=== PATIENT | male | born 1950 | race Caucasian/White ===

== ENCOUNTER 2017-07-10 03:44 | Emergency (ER) | payer MEDICARE, MEDICAID ==
[~2017-07-10 03:44] MED LIST: /GLIP10TAB OR; ABIL2TAB OR; ASPI650T2 OR; ASPI81TA83 OR; GLUC1000 OR; HALDOL; LISI2.5T OR; MAGN500T2 OR; PROZ10CA OR; PROZ20CA OR; TYLE500T53 OR; ZOCO40TA OR
[2017-07-10] MEDS: NS 1,000 ML IV SCH ×2 (03:57→10:41)
[2017-07-10] MEDS ORDERED: MORPHINE 4 MG/ML 1ML SYRINGE IV ONE ×2 (04:00→07:00)
[2017-07-10] MEDS ORDERED: ONDANSETRON 4MG/2ML VIAL (J2405) IV ONE (04:00)
[2017-07-10 04:13] LABS: BASO # 0.1 10^3/uL (0.0-0.2); BASO % 0.7 % (0.0-1.0); EOS # 0.4 10^3/uL (0.0-0.50); EOS % 5.7 % (0.0-3.0); IMMATURE GRANULOCYTE % 0.3 % (0-0); LYMPH # 1.2 10^3/uL (1.5-4.5); MEAN CORPUSCULAR HEMOGLOBIN 32.6 pg (27.0-33.0); MEAN CORPUSCULAR HGB CONC 34.5 g/dl (32.0-36.5); MEAN CORPUSCULAR VOLUME 94.7 fl (80.0-96.0); MONO # 0.5 10^3/uL (0.0-0.8); MONO % 6.7 % (0.0-5.0); NEUTROPHILS # 5.5 10^3/uL (1.8-7.7); NEUTROPHILS % 71.6 % (36.0-66.0); PLATELET COUNT, AUTOMATED 216 10^3/uL (150-450); RED CELL DISTRIBUTION WIDTH 11.9 % (11.5-14.5); WHITE BLOOD COUNT 7.7 10^3/uL (4.0-10.0)
[2017-07-10 04:31] LABS: ALBUMIN/GLOBULIN RATIO 1.43 (1.00-1.93); ALKALINE PHOSPHATASE 75 U/L (45-117); ALT/SGPT 19 U/L (12-78); ANION GAP 9 MEQ/L (8-16); AST/SGOT 14 U/L (7-37); BILIRUBIN,DIRECT 0.1 MG/DL (0.0-0.2); BILIRUBIN,TOTAL 0.7 MG/DL (0.2-1.0); BLOOD UREA NITROGEN 20 MG/DL (7-18); CALCIUM LEVEL 9.2 MG/DL (8.8-10.2); CARBON DIOXIDE LEVEL 26 MEQ/L (21-32); CHLORIDE LEVEL 103 MEQ/L (98-107); CREATININE FOR GFR 0.86 MG/DL (0.70-1.30); GLOMERULAR FILTRATION RATE > 60.0 (>49); GLUCOSE, FASTING 216 MG/DL (80-110); POTASSIUM SERUM 4.3 MEQ/L (3.5-5.1); SODIUM LEVEL 138 MEQ/L (136-145); TOTAL PROTEIN 6.8 GM/DL (6.4-8.2)
[2017-07-10] MEDS ORDERED: GASTROGRAFIN SOLUTION 30ML (Q9963) As Ordered ONE (05:10)
[2017-07-10] MEDS ORDERED: GASTROGRAFIN SOLUTION 30ML PO ONE (05:15)
[2017-07-10] MEDS ORDERED: GASTROGRAFIN SOLUTION 30ML (Q9963) PO ONE (05:45)
[2017-07-10] MEDS ORDERED: ISOVUE-370 76% 100ML VIAL (Q9967) As Ordered ONE (05:55)
--- NOTE | 2017-07-10 07:40 | REPUSA ---
CLINICAL HISTORY: Abdominal pain. TECHNIQUE: Multiple axial, sagittal and coronal CT images were obtained through the abdomen and pelvi s after administration of oral and intravenous contrast material. COMMENTS: Moderate amount of fecal residue and large bowels. 5.2 mm obstructing stone of the distal third of the left ureter. Moderate left hydroureteronephrosis. Bilateral nonobstructing renal stones ranging in size between 4 and 16 mm. The liver is mildly enlarged without mass or defect. There is no intra or extrahepatic biliary ductal dilatation. The spleen is normal. The gallbladder is within normal limits. The pancreas is of normal contour and attenuation characteristics. There is no evidence of adrenal mass. No evidence for appendicitis. There is no bowel wall thickening. No evidence for small or large bowel obstruction. There is no evid ence of abdominal ascites or lymphadenopathy. There is no evidence of intrinsic or extrinsic bladder mass. There is no pelvic ascites or lymphadeno zach. Images of the lung bases show no evidence of pleural or parenchymal mass. There are no pleural effusi ons. The bony structures are free of lytic or blastic lesions. Multilevel degenerative changes are seen in volving the thoracolumbar spine. Scattered calcifications are seen involving the aorta and major bran ches compatible with atherosclerosis. Moderate prostatomegaly. Distended bladder. Diffuse thickening of the wall of the bladder. IMPRESSION: Obstructing stone of the left ureter. Bilateral nephrolithiasis. Moderate amount of fecal residue in the large bowels. Prostatomegaly. Thickening of the bladder. Thank you for your kind referral of this patient.
[2017-07-10] MEDS ORDERED: KETOROLAC 30 MG/ML VIAL (J1885) IV ONE (08:15)
--- NOTE | 2017-07-10 08:32 | ED PDOC ---
Post-Departure Follow-Up radiology report faxed to Shirley Marcelo MD Jul 10, 2017 08:32
[2017-07-10 10:21] VITALS: BP 137/67
[2017-07-10] MEDS ORDERED: NORCOTAB PO (10:35)
== END 2017-07-10 10:55 | disposition home or self-care (01) ==
LOC: M ED 03:44
DX: R10.9 Unspecified abdominal pain (principal); N20.1 Calculus of ureter; E11.9 Type 2 diabetes mellitus without complications; F32.9 Major depressive disorder, single episode, unspecified; F17.200 Nicotine dependence, unspecified, uncomplicated; Z88.0 Allergy status to penicillin; Z79.82 Long term (current) use of aspirin; Z79.899 Other long term (current) drug therapy
CPT/HCPCS: 74177; 80048; 80076; 81001; 83690; 85025; 87086; 93041; 94760; 96374; 96375; 96376; 99285; J1885; J2405; Q9963; Q9967

== ENCOUNTER 2017-07-12 04:41 | Emergency (ER) | payer MEDICARE, MEDICAID ==
[~2017-07-12 04:41] MED LIST changes: +NORCOTAB PO
[2017-07-12] MEDS ORDERED: ATOR80TA59 PO (05:02)
[2017-07-12] MEDS ORDERED: ZOLO100T PO (05:02)
[2017-07-12] MEDS ORDERED: ALPR0.25 PO (05:02)
[2017-07-12] MEDS ORDERED: INSULADS INJ (05:02)
[2017-07-12] MEDS ORDERED: DITR5TAB PO (05:02)
[2017-07-12] MEDS ORDERED: FLOM5CAP PO (05:02)
[2017-07-12] MEDS ORDERED: VICT18IN SC (05:02)
[2017-07-12] MEDS ORDERED: KETOROLAC 30 MG/ML VIAL (J1885) IV ONE (05:45)
[2017-07-12] MEDS ORDERED: NS 1,000 ML IV ONE (05:45)
[2017-07-12 06:00] LABS: BASO # 0.1 10^3/uL (0.0-0.2); BASO % 0.6 % (0.0-1.0); EOS # 0.5 10^3/uL (0.0-0.50); IMMATURE GRANULOCYTE % 0.4 % (0-0); LYMPH # 0.9 10^3/uL (1.5-4.5); LYMPH % 10.8 % (24.0-44.0); MEAN CORPUSCULAR HEMOGLOBIN 32.5 pg (27.0-33.0); MEAN CORPUSCULAR HGB CONC 34.3 g/dl (32.0-36.5); MEAN CORPUSCULAR VOLUME 94.7 fl (80.0-96.0); MONO # 0.7 10^3/uL (0.0-0.8); MONO % 8.4 % (0.0-5.0); NEUTROPHILS # 6.2 10^3/uL (1.8-7.7); NEUTROPHILS % 73.8 % (36.0-66.0); PLATELET COUNT, AUTOMATED 192 10^3/uL (150-450); WHITE BLOOD COUNT 8.4 10^3/uL (4.0-10.0)
[2017-07-12 06:18] LABS: PLT CLUMPS? POS FLAG; POS COUNT POS FLAG
[2017-07-12 06:44] LABS: ALBUMIN 3.7 GM/DL (3.2-5.2); ALBUMIN/GLOBULIN RATIO 1.32 (1.00-1.93); ALKALINE PHOSPHATASE 61 U/L (45-117); ALT/SGPT 17 U/L (12-78); AMYLASE 118 U/L (25-115); ANION GAP 9 MEQ/L (8-16); AST/SGOT 17 U/L (7-37); BILIRUBIN,DIRECT 0.1 MG/DL (0.0-0.2); BILIRUBIN,TOTAL 0.6 MG/DL (0.2-1.0); BLOOD UREA NITROGEN 18 MG/DL (7-18); CALCIUM LEVEL 8.7 MG/DL (8.8-10.2); CARBON DIOXIDE LEVEL 24 MEQ/L (21-32); CHLORIDE LEVEL 107 MEQ/L (98-107); GLOMERULAR FILTRATION RATE > 60.0 (>49); GLUCOSE, FASTING 115 MG/DL (80-110); POTASSIUM SERUM 4.3 MEQ/L (3.5-5.1); SODIUM LEVEL 140 MEQ/L (136-145); TOTAL PROTEIN 6.5 GM/DL (6.4-8.2)
--- NOTE | 2017-07-12 08:00 | REPUSA ---
CLINICAL HISTORY: Left flank pain. TECHNIQUE: Multiple axial and coronal CT images were obtained through the abdomen and pelvis without administration of oral or IV contrast material. COMMENTS: Comparison is made to the prior exam performed on 07/10/2017. Unchanged moderate amount of fecal residue in the large bowels. Resolution of the previously described obstructing stone in the distal third of the left ureter. Moderate left hydroureteronephrosis. This is unchanged. Unchanged bilateral nephrolithiasis. The liver is of uniform attenuation without mass or defect. There is no intra or extrahepatic biliary ductal dilatation. The spleen is normal. The gallbladder is within normal limits. The pancreas is of normal contour and attenuation characteristics. There is no evidence of adrenal mass. There is no evidence for appendicitis. There is no bowel wall thickening. No evidence for small or la rge bowel obstruction. There is no evidence of abdominal ascites or lymphadenopathy. There is no evidence of intrinsic or extrinsic bladder mass. There is no pelvic ascites or lymphadeno zahc. Distended bladder is unchanged. Unchanged prostatomegaly. Images of the lung bases show no evidence of pleural or parenchymal mass. There are no pleural effusi ons. The bony structures are free of lytic or blastic lesions. IMPRESSION: Passage of the recently described obstructing stone in the distal left ureter. Unchanged left hydroureteronephrosis. Unchanged left perinephric fat stranding. Additional chronic, unchanged findings as above. Thank you for your kind referral of this patient.
[2017-07-12 09:00] VITALS: BP 173/79
== END 2017-07-12 09:02 | disposition home or self-care (01) ==
LOC: M ED 04:41
DX: N20.1 Calculus of ureter (principal); N40.0 Benign prostatic hyperplasia without lower urinary tract symptoms; E11.9 Type 2 diabetes mellitus without complications; I10 Essential (primary) hypertension; E78.5 Hyperlipidemia, unspecified; Z87.442 Personal history of urinary calculi; F17.200 Nicotine dependence, unspecified, uncomplicated; Z88.0 Allergy status to penicillin; Z79.899 Other long term (current) drug therapy; Z79.82 Long term (current) use of aspirin; Z79.4 Long term (current) use of insulin
CPT/HCPCS: 74176; 80048; 80076; 81001; 82150; 83690; 85025; 87086; 96374; 99284; J1885

== ENCOUNTER 2018-03-23 20:01 | Emergency (ER) | payer MEDICARE, MEDICAID ==
[2018-03-23] MEDS: NS 1,000 ML IV (21:50)
[2018-03-23] MEDS: MORPHINE 4 MG/ML 1ML VIAL/SYRINGE (J2270) IV (21:51)
[2018-03-23] MEDS: ONDANSETRON 4MG/2ML VIAL (J2405) IV (21:51)
[2018-03-23 22:05] LABS: BASO % 0.2 % (0.0-1.0); EOS # 0.3 10^3/uL (0.0-0.50); EOS % 1.6 % (0.0-3.0); HEMATOCRIT 37.4 % (42.0-52.0); HEMOGLOBIN 13.1 g/dl (13.5-17.5); IMMATURE GRANULOCYTE % 0.8 % (0-3.0); LYMPH # 1.1 10^3/uL (1.5-4.5); LYMPH % 6.6 % (24.0-44.0); MEAN CORPUSCULAR HEMOGLOBIN 33.2 pg (27.0-33.0); MEAN CORPUSCULAR VOLUME 94.7 fl (80.0-96.0); MONO # 1.1 10^3/uL (0.0-0.8); MONO % 6.7 % (0.0-5.0); NEUTROPHILS # 13.5 10^3/uL (1.8-7.7); NEUTROPHILS % 84.1 % (36.0-66.0); PLATELET COUNT, AUTOMATED 282 10^3/uL (150-450); RED BLOOD COUNT 3.95 10^6/uL (4.30-6.10); RED CELL DISTRIBUTION WIDTH 11.8 % (11.5-14.5)
[2018-03-23 22:39] LABS: ALBUMIN/GLOBULIN RATIO 0.79 (1.00-1.93); ALKALINE PHOSPHATASE 93 U/L (45-117); ALT/SGPT 22 U/L (12-78); ANION GAP 9 MEQ/L (8-16); AST/SGOT 17 U/L (7-37); BILIRUBIN,DIRECT 0.1 MG/DL (0.0-0.2); BILIRUBIN,TOTAL 0.6 MG/DL (0.2-1.0); BLOOD UREA NITROGEN 38 MG/DL (7-18); CALCIUM LEVEL 9.1 MG/DL (8.8-10.2); CARBON DIOXIDE LEVEL 28 MEQ/L (21-32); CHLORIDE LEVEL 98 MEQ/L (98-107); CPK CREATINE PHOSPHOKINASE 131 U/L (39-308); CREATININE FOR GFR 1.45 MG/DL (0.70-1.30); ETHYL ALCOHOL (ETHANOL) < 0.003 % (0.000-0.010); GLOMERULAR FILTRATION RATE 51.8 (>49); GLUCOSE, FASTING 160 MG/DL (70-100); LIPASE 77 U/L (73-393); POTASSIUM SERUM 4.6 MEQ/L (3.5-5.1); SALICYLATE LEVEL < 1.7 MG/DL (5.0-30.0); SODIUM LEVEL 135 MEQ/L (136-145); TOTAL PROTEIN 6.8 GM/DL (6.4-8.2); TROPONIN I < 0.02 NG/ML (< 0.10)
[2018-03-23 22:40] LABS: ACETAMINOPHEN LEVEL < 2.0 UG/ML (10.0-30.0); CK-MB VALUE MASS 1.7 NG/ML (<3.6); MB/CK RELATIVE INDEX 1.29 (< OR =4)
[2018-03-23 22:44] LABS: THYROID STIMULATING HORMONE 0.699 uIU/ML (0.358-3.740)
[2018-03-23 23:25] LABS: KETONE, URINE AUTO RFX NEGATIVE (NEGATIVE); LEUKOCYTE ESTERASE UR AUTO RFX NEGATIVE (NEGATIVE); NITRITE, URINE AUTO RFX NEGATIVE (NEGATIVE); RBC, URINE AUTO RFX 146 /HPF (0-3); SPECIFIC GRAVITY UR AUTO RFX 1.018 (1.002-1.035); SQUAM EPITHELIAL CELL UR AURFX 0 /HPF (0-6); WBC, URINE AUTO RFX 4 /HPF (0-3)
[2018-03-23 23:59] LABS: AMPHETAMINES LEVEL URINE NEGATIVE (NEGATIVE); BARBITURATES URINE NEGATIVE (NEGATIVE); BENZODIAZEPINES URINE POSITIVE (NEGATIVE); CANNABINOIDS URINE NEGATIVE (NEGATIVE); COCAINE METABOLITE URINE NEGATIVE (NEGATIVE); METHADONE URINE NEGATIVE (NEGATIVE); OPIATES URINE POSITIVE (NEGATIVE); PHENCYCLIDINE URINE NEGATIVE (NEGATIVE)
== END 2018-03-24 01:08 | disposition home or self-care (01) ==
LOC: M ED 03-24 01:08
DX: S20.229A Contusion of unspecified back wall of thorax, initial encounter (principal); W18.2XXA Fall in (into) shower or empty bathtub, initial encounter; Y92.002 Bathroom of unspecified non-institutional (private) residence as the place of occurrence of the external cause; R42 Dizziness and giddiness; R53.1 Weakness; I11.9 Hypertensive heart disease without heart failure; E11.9 Type 2 diabetes mellitus without complications; Z87.891 Personal history of nicotine dependence; Z88.0 Allergy status to penicillin; Z79.899 Other long term (current) drug therapy; Z79.82 Long term (current) use of aspirin; Z79.4 Long term (current) use of insulin
CPT/HCPCS: J2270

== ENCOUNTER 2018-03-28 11:42 | Inpatient (IN) | payer OTHER, MEDICARE, MEDICAID ==
[2018-03-28 12:17] LABS: BEDSIDE GLUCOSE 277 MG/DL (80-115)
[2018-03-28 13:07] LABS: BASO # 0.1 10^3/uL (0.0-0.2); BASO % 0.3 % (0.0-1.0); EOS # 0.1 10^3/uL (0.0-0.50); EOS % 0.4 % (0.0-3.0); HEMATOCRIT 37.8 % (42.0-52.0); IMMATURE GRANULOCYTE % 1.1 % (0-3.0); LYMPH # 1.2 10^3/uL (1.5-4.5); LYMPH % 4.9 % (24.0-44.0); MEAN CORPUSCULAR HEMOGLOBIN 32.9 pg (27.0-33.0); MEAN CORPUSCULAR HGB CONC 34.4 g/dl (32.0-36.5); MEAN CORPUSCULAR VOLUME 95.7 fl (80.0-96.0); MONO # 1.5 10^3/uL (0.0-0.8); MONO % 5.8 % (0.0-5.0); NEUTROPHILS # 22.2 10^3/uL (1.8-7.7); NEUTROPHILS % 87.5 % (36.0-66.0); PLATELET COUNT, AUTOMATED 405 10^3/uL (150-450); RED BLOOD COUNT 3.95 10^6/uL (4.30-6.10); RED CELL DISTRIBUTION WIDTH 11.8 % (11.5-14.5); WHITE BLOOD COUNT 25.3 10^3/uL (4.0-10.0)
[2018-03-28 13:31] LABS: ALBUMIN 2.7 GM/DL (3.2-5.2); ALKALINE PHOSPHATASE 124 U/L (45-117); ALT/SGPT 28 U/L (12-78); ANION GAP 10 MEQ/L (8-16); AST/SGOT 13 U/L (7-37); BILIRUBIN,TOTAL 0.4 MG/DL (0.2-1.0); BLOOD UREA NITROGEN 24 MG/DL (7-18); CARBON DIOXIDE LEVEL 27 MEQ/L (21-32); CHLORIDE LEVEL 100 MEQ/L (98-107); CREATININE FOR GFR 1.16 MG/DL (0.70-1.30); GLOMERULAR FILTRATION RATE > 60.0 (>49); GLUCOSE, FASTING 254 MG/DL (70-100); POTASSIUM SERUM 4.2 MEQ/L (3.5-5.1); SODIUM LEVEL 137 MEQ/L (136-145); TOTAL PROTEIN 7.2 GM/DL (6.4-8.2)
[2018-03-28 13:51] LABS: LACTIC ACID SEPSIS PROTOCOL 2.8 MMOL/L (0.4-2.0)
[2018-03-28] MEDS: VANCOMYCIN HCL 1,000 MG, VIAL MATE ADAPTER 1 EACH in D5W 250 ML IV ×2 (14:30→20:58)
[2018-03-28] MEDS: ONDANSETRON 4MG/2ML VIAL (J2405) IV (14:56)
[2018-03-28] MEDS: MORPHINE 2 MG/ML 1ML SYRINGE (J2270) IV (15:01)
[2018-03-28] MEDS ORDERED: GLUCAGON FOR INJ 1 MG VIAL (J1610) SC (16:00)
[2018-03-28] MEDS ORDERED: DEXTROSE 50% 50 ML SYRINGE IV (16:00)
[2018-03-28] MEDS ORDERED: GLUCOSE 4 GM CHEW TABLET PO (16:00)
[2018-03-28] MEDS: NS 500 ML IV (16:25)
[2018-03-28 17:27] LABS: BEDSIDE GLUCOSE 200 MG/DL (80-115)
[2018-03-28 17:28] LABS: LACTIC ACID SEPSIS PROTOCOL 1.1 MMOL/L (0.4-2.0)
[2018-03-28] MEDS: HumaLOG INSULIN (NovoLOG) PER UNIT SC (18:33)
[2018-03-28] MEDS: ARIPiprazole 10 MG TAB PO (18:35)
[2018-03-28] MEDS: ASPIRIN 81 MG ENTERIC TAB PO (18:35)
[2018-03-28] MEDS: NS 1,000 ML IV (18:35)
[2018-03-28] MEDS: oxyBUTYnin *DITROPAN XL* 5 MG TABCR PO (18:35)
[2018-03-28] MEDS: TAMSULOSIN 0.4 MG CAP PO (18:36)
[2018-03-28 20:52] LABS: BEDSIDE GLUCOSE 120 MG/DL (80-115)
[2018-03-28] MEDS: HEPARIN SOD (PORCINE) 5000 UNITS/ML VIAL SC (20:58)
[2018-03-28] MEDS: ACETAMINOPHEN TAB 650MG DOSE (2X325MG) PO (23:07)
[2018-03-29 01:37] LABS: BEDSIDE GLUCOSE 258 MG/DL (80-115)
[2018-03-29] MEDS: VANCOMYCIN HCL 1,000 MG, VIAL MATE ADAPTER 1 EACH in D5W 250 ML IV ×3 (03:46→20:28)
[2018-03-29] MEDS: ACETAMINOPHEN TAB 650MG DOSE (2X325MG) PO ×4 (03:47→20:29)
[2018-03-29] MEDS: NS 1,000 ML IV ×2 (04:15→08:39)
[2018-03-29] MEDS: HEPARIN SOD (PORCINE) 5000 UNITS/ML VIAL SC ×3 (06:36→21:42)
[2018-03-29 06:43] LABS: HEMOGLOBIN 12.1 g/dl (13.5-17.5); MEAN CORPUSCULAR HEMOGLOBIN 32.3 pg (27.0-33.0); MEAN CORPUSCULAR HGB CONC 33.6 g/dl (32.0-36.5); PLATELET COUNT, AUTOMATED 317 10^3/uL (150-450); RED BLOOD COUNT 3.75 10^6/uL (4.30-6.10); RED CELL DISTRIBUTION WIDTH 11.9 % (11.5-14.5); WHITE BLOOD COUNT 20.4 10^3/uL (4.0-10.0)
[2018-03-29 07:03] LABS: ANION GAP 6 MEQ/L (8-16); BLOOD UREA NITROGEN 17 MG/DL (7-18); CALCIUM LEVEL 8.2 MG/DL (8.8-10.2); CARBON DIOXIDE LEVEL 28 MEQ/L (21-32); CHLORIDE LEVEL 105 MEQ/L (98-107); CREATININE FOR GFR 0.74 MG/DL (0.70-1.30); GLOMERULAR FILTRATION RATE > 60.0 (>49); GLUCOSE, FASTING 232 MG/DL (70-100); POTASSIUM SERUM 4.1 MEQ/L (3.5-5.1); SODIUM LEVEL 139 MEQ/L (136-145)
[2018-03-29] MEDS: ARIPiprazole 10 MG TAB PO (08:18)
[2018-03-29] MEDS: LISINOPRIL *2.5 MG* TAB PO (08:18)
[2018-03-29] MEDS: oxyBUTYnin *DITROPAN XL* 5 MG TABCR PO (08:18)
[2018-03-29] MEDS: LEVEMIR (INSULIN DETEMIR) 1 UNITS/0.01ML SC (08:19)
[2018-03-29] MEDS: ASPIRIN 81 MG ENTERIC TAB PO (08:19)
[2018-03-29] MEDS: HumaLOG INSULIN (NovoLOG) PER UNIT SC ×3 (08:19→17:06)
[2018-03-29] MEDS: ATORVASTATIN 20 MG TAB PO (08:19)
[2018-03-29] MEDS: SERTRALINE 100 MG TAB PO (08:19)
[2018-03-29] MEDS: TAMSULOSIN 0.4 MG CAP PO (08:19)
[2018-03-29 11:28] LABS: BEDSIDE GLUCOSE 299 MG/DL (80-115)
[2018-03-29] MEDS ORDERED: PROHANCE 279.3MG/ML 15ML VIAL (A9576) As Ordered (14:51)
[2018-03-29] MEDS ORDERED: PROHANCE 279.3MG/ML 5ML VIAL (A9576) As Ordered (14:51)
[2018-03-29 16:36] LABS: BEDSIDE GLUCOSE 69 MG/DL (80-115)
[2018-03-29 19:23] LABS: VANCOMYCIN LEVEL TROUGH 12.9 UG/ML (10.0-20.0)
[2018-03-29] MEDS ORDERED: VANCOMYCIN HCL 1,000 MG, VIAL MATE ADAPTER 1 EACH in D5W 250 ML IV (19:45)
[2018-03-29 19:51] LABS: BEDSIDE GLUCOSE 118 MG/DL (80-115)
[2018-03-29] MEDS: SENOKOT S TAB PO (20:28)
[2018-03-30] MEDS: NS 1,000 ML IV ×2 (01:02→13:59)
[2018-03-30] MEDS: ACETAMINOPHEN TAB 650MG DOSE (2X325MG) PO ×4 (02:19→21:16)
[2018-03-30] MEDS: VANCOMYCIN HCL 1,000 MG, VIAL MATE ADAPTER 1 EACH in D5W 250 ML IV ×4 (02:19→20:23)
[2018-03-30 06:02] LABS: HEMATOCRIT 35.7 % (42.0-52.0); HEMOGLOBIN 11.9 g/dl (13.5-17.5); MEAN CORPUSCULAR HEMOGLOBIN 32.4 pg (27.0-33.0); MEAN CORPUSCULAR HGB CONC 33.3 g/dl (32.0-36.5); MEAN CORPUSCULAR VOLUME 97.3 fl (80.0-96.0); PLATELET COUNT, AUTOMATED 336 10^3/uL (150-450); RED BLOOD COUNT 3.67 10^6/uL (4.30-6.10); RED CELL DISTRIBUTION WIDTH 11.8 % (11.5-14.5); WHITE BLOOD COUNT 20.2 10^3/uL (4.0-10.0)
[2018-03-30 06:16] LABS: ANION GAP 9 MEQ/L (8-16); BLOOD UREA NITROGEN 13 MG/DL (7-18); CALCIUM LEVEL 8.3 MG/DL (8.8-10.2); CARBON DIOXIDE LEVEL 26 MEQ/L (21-32); CHLORIDE LEVEL 108 MEQ/L (98-107); CREATININE FOR GFR 0.61 MG/DL (0.70-1.30); GLOMERULAR FILTRATION RATE > 60.0 (>49); GLUCOSE, FASTING 60 MG/DL (70-100); POTASSIUM SERUM 3.6 MEQ/L (3.5-5.1); SODIUM LEVEL 143 MEQ/L (136-145)
[2018-03-30] MEDS: HEPARIN SOD (PORCINE) 5000 UNITS/ML VIAL SC ×3 (06:47→21:16)
[2018-03-30] MEDS: HumaLOG INSULIN (NovoLOG) PER UNIT SC ×3 (07:30→16:59)
[2018-03-30] MEDS: SERTRALINE 100 MG TAB PO (08:07)
[2018-03-30] MEDS: ASPIRIN 81 MG ENTERIC TAB PO (08:08)
[2018-03-30] MEDS: LISINOPRIL *2.5 MG* TAB PO (08:08)
[2018-03-30] MEDS: TAMSULOSIN 0.4 MG CAP PO (08:08)
[2018-03-30] MEDS: oxyBUTYnin *DITROPAN XL* 5 MG TABCR PO (08:08)
[2018-03-30] MEDS: ARIPiprazole 10 MG TAB PO (08:08)
[2018-03-30] MEDS: ATORVASTATIN 20 MG TAB PO (08:08)
[2018-03-30] MEDS: LEVEMIR (INSULIN DETEMIR) 1 UNITS/0.01ML SC (08:57)
[2018-03-30 11:30] LABS: BEDSIDE GLUCOSE 276 MG/DL (80-115)
[2018-03-30 16:40] LABS: BEDSIDE GLUCOSE 308 MG/DL (80-115)
[2018-03-30 18:18] LABS: KETONE, URINE AUTO RFX NEGATIVE (NEGATIVE); LEUKOCYTE ESTERASE UR AUTO RFX NEGATIVE (NEGATIVE); MUCUS, URINE RFX SMALL (NEGATIVE); NITRITE, URINE AUTO RFX NEGATIVE (NEGATIVE); RBC, URINE AUTO RFX 0 /HPF (0-3); SPECIFIC GRAVITY UR AUTO RFX 1.022 (1.002-1.035); SQUAM EPITHELIAL CELL UR AURFX 0 /HPF (0-6); WBC, URINE AUTO RFX 2 /HPF (0-3)
[2018-03-30 19:39] LABS: BEDSIDE GLUCOSE 170 MG/DL (80-115)
[2018-03-30] MEDS: KETOROLAC TROMETHAMINE 10 MG TAB PO (23:39)
[2018-03-31] MEDS: VANCOMYCIN HCL 1,000 MG, VIAL MATE ADAPTER 1 EACH in D5W 250 ML IV ×4 (02:20→20:06)
[2018-03-31] MEDS: NS 1,000 ML IV ×2 (05:47→20:06)
[2018-03-31] MEDS: HEPARIN SOD (PORCINE) 5000 UNITS/ML VIAL SC ×3 (05:47→21:17)
[2018-03-31 06:08] LABS: BEDSIDE GLUCOSE 268 MG/DL (80-115)
[2018-03-31 07:06] LABS: HEMATOCRIT 35.4 % (42.0-52.0); HEMOGLOBIN 11.8 g/dl (13.5-17.5); MEAN CORPUSCULAR HEMOGLOBIN 32.9 pg (27.0-33.0); MEAN CORPUSCULAR HGB CONC 33.3 g/dl (32.0-36.5); MEAN CORPUSCULAR VOLUME 98.6 fl (80.0-96.0); PLATELET COUNT, AUTOMATED 335 10^3/uL (150-450); RED BLOOD COUNT 3.59 10^6/uL (4.30-6.10); RED CELL DISTRIBUTION WIDTH 11.9 % (11.5-14.5); WHITE BLOOD COUNT 15.9 10^3/uL (4.0-10.0)
[2018-03-31 07:26] LABS: ANION GAP 7 MEQ/L (8-16); BLOOD UREA NITROGEN 13 MG/DL (7-18); CALCIUM LEVEL 8.1 MG/DL (8.8-10.2); CARBON DIOXIDE LEVEL 26 MEQ/L (21-32); CHLORIDE LEVEL 106 MEQ/L (98-107); CREATININE FOR GFR 0.73 MG/DL (0.70-1.30); GLOMERULAR FILTRATION RATE > 60.0 (>49); GLUCOSE, FASTING 265 MG/DL (70-100); POTASSIUM SERUM 4.4 MEQ/L (3.5-5.1); SODIUM LEVEL 139 MEQ/L (136-145); VANCOMYCIN LEVEL TROUGH 19.9 UG/ML (10.0-20.0)
[2018-03-31] MEDS: SERTRALINE 100 MG TAB PO (08:38)
[2018-03-31] MEDS: TAMSULOSIN 0.4 MG CAP PO (08:38)
[2018-03-31] MEDS: ASPIRIN 81 MG ENTERIC TAB PO (08:38)
[2018-03-31] MEDS: ATORVASTATIN 20 MG TAB PO (08:38)
[2018-03-31] MEDS: oxyBUTYnin *DITROPAN XL* 5 MG TABCR PO (08:39)
[2018-03-31] MEDS: HumaLOG INSULIN (NovoLOG) PER UNIT SC ×3 (08:39→17:01)
[2018-03-31] MEDS: ARIPiprazole 10 MG TAB PO (08:39)
[2018-03-31] MEDS: ACETAMINOPHEN TAB 650MG DOSE (2X325MG) PO ×4 (08:40→21:17)
[2018-03-31] MEDS: LEVEMIR (INSULIN DETEMIR) 1 UNITS/0.01ML SC (08:40)
[2018-03-31] MEDS: LISINOPRIL *2.5 MG* TAB PO (08:41)
[2018-03-31 12:07] LABS: BEDSIDE GLUCOSE 242 MG/DL (80-115)
[2018-03-31 16:42] LABS: BEDSIDE GLUCOSE 168 MG/DL (80-115)
[2018-03-31 19:51] LABS: BEDSIDE GLUCOSE 93 MG/DL (80-115)
[2018-04-01] MEDS: VANCOMYCIN HCL 1,000 MG, VIAL MATE ADAPTER 1 EACH in D5W 250 ML IV ×4 (01:34→19:46)
[2018-04-01] MEDS: SENOKOT S TAB PO (01:38)
[2018-04-01] MEDS: ACETAMINOPHEN TAB 650MG DOSE (2X325MG) PO ×2 (01:38→09:14)
[2018-04-01] MEDS: NS 1,000 ML IV ×4 (05:45→19:46)
[2018-04-01] MEDS: HEPARIN SOD (PORCINE) 5000 UNITS/ML VIAL SC ×3 (05:45→21:32)
[2018-04-01 05:52] LABS: HEMATOCRIT 36.1 % (42.0-52.0); HEMOGLOBIN 12.1 g/dl (13.5-17.5); MEAN CORPUSCULAR HEMOGLOBIN 31.8 pg (27.0-33.0); MEAN CORPUSCULAR HGB CONC 33.5 g/dl (32.0-36.5); PLATELET COUNT, AUTOMATED 399 10^3/uL (150-450); RED CELL DISTRIBUTION WIDTH 11.8 % (11.5-14.5); WHITE BLOOD COUNT 16.9 10^3/uL (4.0-10.0)
[2018-04-01 06:23] LABS: ANION GAP 8 MEQ/L (8-16); BLOOD UREA NITROGEN 11 MG/DL (7-18); CALCIUM LEVEL 8.6 MG/DL (8.8-10.2); CARBON DIOXIDE LEVEL 27 MEQ/L (21-32); CHLORIDE LEVEL 108 MEQ/L (98-107); CREATININE FOR GFR 0.59 MG/DL (0.70-1.30); GLOMERULAR FILTRATION RATE > 60.0 (>49); GLUCOSE, FASTING 103 MG/DL (70-100); SODIUM LEVEL 143 MEQ/L (136-145)
[2018-04-01] MEDS ORDERED: NS 1,000 ML IV (09:03)
[2018-04-01] MEDS: HumaLOG INSULIN (NovoLOG) PER UNIT SC ×3 (09:10→17:14)
[2018-04-01] MEDS: LEVEMIR (INSULIN DETEMIR) 1 UNITS/0.01ML SC (09:11)
[2018-04-01] MEDS: ASPIRIN 81 MG ENTERIC TAB PO (09:12)
[2018-04-01] MEDS: SERTRALINE 100 MG TAB PO (09:12)
[2018-04-01] MEDS: TAMSULOSIN 0.4 MG CAP PO (09:12)
[2018-04-01] MEDS: oxyBUTYnin *DITROPAN XL* 5 MG TABCR PO (09:12)
[2018-04-01] MEDS: ATORVASTATIN 20 MG TAB PO (09:13)
[2018-04-01] MEDS: LISINOPRIL *2.5 MG* TAB PO (09:13)
[2018-04-01] MEDS: ARIPiprazole 10 MG TAB PO (09:13)
[2018-04-01] MEDS ORDERED: ONDANSETRON 4MG/2ML VIAL (J2405) IV (09:15)
[2018-04-01] MEDS ORDERED: diphenhydrAMINE INJ 50MG/ML VIAL (J1200) IV (09:15)
[2018-04-01] MEDS ORDERED: EPIDURAL/PCA KEYS XX (09:15)
[2018-04-01] MEDS ORDERED: NALOXONE INJ 0.4 MG/1 ML VIAL (J2310) IV (09:15)
[2018-04-01] MEDS ORDERED: NALBUPHINE HCL 10 MG/ML AMP (J2300) IV (09:15)
[2018-04-01] MEDS: KETOROLAC 30 MG/ML VIAL (J1885) IV ×3 (09:30→21:32)
[2018-04-01] MEDS: MORPHINE 4 MG/ML 1ML VIAL/SYRINGE (J2270) IV (09:31)
[2018-04-01] MEDS: SODIUM CHLORIDE 0.9% 1000 ML IV (11:30)
[2018-04-01] MEDS: LevoFLOXacin 750 MG TABLET PO (11:30)
[2018-04-01] MEDS: MORPHINE 1MG/ML IN 0.9% NACL 100ML IV BAG IV (11:32)
[2018-04-01 13:54] LABS: KETONE, URINE AUTO RFX NEGATIVE (NEGATIVE); LEUKOCYTE ESTERASE UR AUTO RFX NEGATIVE (NEGATIVE); NITRITE, URINE AUTO RFX NEGATIVE (NEGATIVE); RBC, URINE AUTO RFX 3 /HPF (0-3); SPECIFIC GRAVITY UR AUTO RFX 1.011 (1.002-1.035); SQUAM EPITHELIAL CELL UR AURFX 0 /HPF (0-6); WBC, URINE AUTO RFX 1 /HPF (0-3)
[2018-04-01] MEDS: NS 500 ML IV (16:00)
[2018-04-01 16:32] LABS: BEDSIDE GLUCOSE 224 MG/DL (80-115)
[2018-04-01 20:33] LABS: BEDSIDE GLUCOSE 181 MG/DL (80-115)
[2018-04-02] MEDS: VANCOMYCIN HCL 1,000 MG, VIAL MATE ADAPTER 1 EACH in D5W 250 ML IV ×3 (01:37→17:10)
[2018-04-02] MEDS: NS 1,000 ML IV ×2 (03:50→21:56)
[2018-04-02] MEDS: KETOROLAC 30 MG/ML VIAL (J1885) IV ×4 (03:50→22:21)
[2018-04-02] MEDS: LevoFLOXacin 750 MG TABLET PO (05:42)
[2018-04-02] MEDS: HEPARIN SOD (PORCINE) 5000 UNITS/ML VIAL SC ×3 (05:42→21:56)
[2018-04-02 06:40] LABS: HEMATOCRIT 32.2 % (42.0-52.0); HEMOGLOBIN 10.8 g/dl (13.5-17.5); MEAN CORPUSCULAR HEMOGLOBIN 32.4 pg (27.0-33.0); MEAN CORPUSCULAR HGB CONC 33.5 g/dl (32.0-36.5); MEAN CORPUSCULAR VOLUME 96.7 fl (80.0-96.0); PLATELET COUNT, AUTOMATED 342 10^3/uL (150-450); RED BLOOD COUNT 3.33 10^6/uL (4.30-6.10); WHITE BLOOD COUNT 13.8 10^3/uL (4.0-10.0)
[2018-04-02 06:49] LABS: ANION GAP 8 MEQ/L (8-16); BLOOD UREA NITROGEN 16 MG/DL (7-18); CARBON DIOXIDE LEVEL 25 MEQ/L (21-32); CHLORIDE LEVEL 112 MEQ/L (98-107); CREATININE FOR GFR 0.66 MG/DL (0.70-1.30); GLOMERULAR FILTRATION RATE > 60.0 (>49); GLUCOSE, FASTING 84 MG/DL (70-100); POTASSIUM SERUM 4.5 MEQ/L (3.5-5.1); SODIUM LEVEL 145 MEQ/L (136-145)
[2018-04-02] MEDS: HumaLOG INSULIN (NovoLOG) PER UNIT SC ×3 (07:30→17:31)
[2018-04-02] MEDS: ATORVASTATIN 20 MG TAB PO (08:24)
[2018-04-02] MEDS: SERTRALINE 100 MG TAB PO (08:24)
[2018-04-02] MEDS: TAMSULOSIN 0.4 MG CAP PO (08:24)
[2018-04-02] MEDS: ASPIRIN 81 MG ENTERIC TAB PO (08:24)
[2018-04-02] MEDS: oxyBUTYnin *DITROPAN XL* 5 MG TABCR PO (08:24)
[2018-04-02] MEDS: LEVEMIR (INSULIN DETEMIR) 1 UNITS/0.01ML SC ×2 (09:00→10:12)
[2018-04-02] MEDS: ARIPiprazole 15 MG TAB (AbiLIFY) PO (10:12)
[2018-04-02 12:03] LABS: BEDSIDE GLUCOSE 220 MG/DL (80-115)
[2018-04-02] MEDS: MORPHINE 1MG/ML IN 0.9% NACL 100ML IV BAG IV (12:24)
[2018-04-02 13:11] LABS: VANCOMYCIN LEVEL TROUGH 24.8 UG/ML (10.0-20.0)
[2018-04-02 17:27] LABS: BEDSIDE GLUCOSE 134 MG/DL (80-115)
[2018-04-02 22:06] LABS: BEDSIDE GLUCOSE 100 MG/DL (80-115)
[2018-04-02 23:27] LABS: BEDSIDE GLUCOSE 133 MG/DL (80-115)
[2018-04-03] MEDS: VANCOMYCIN HCL 1,000 MG, VIAL MATE ADAPTER 1 EACH in D5W 250 ML IV ×3 (02:22→17:22)
[2018-04-03] MEDS: KETOROLAC 30 MG/ML VIAL (J1885) IV ×4 (04:30→20:45)
[2018-04-03] MEDS: NS 1,000 ML IV ×2 (05:28→17:53)
[2018-04-03 05:55] LABS: BEDSIDE GLUCOSE 317 MG/DL (80-115)
[2018-04-03 06:17] LABS: HEMATOCRIT 32.5 % (42.0-52.0); HEMOGLOBIN 10.8 g/dl (13.5-17.5); MEAN CORPUSCULAR HEMOGLOBIN 32.5 pg (27.0-33.0); MEAN CORPUSCULAR HGB CONC 33.2 g/dl (32.0-36.5); MEAN CORPUSCULAR VOLUME 97.9 fl (80.0-96.0); PLATELET COUNT, AUTOMATED 345 10^3/uL (150-450); RED BLOOD COUNT 3.32 10^6/uL (4.30-6.10); RED CELL DISTRIBUTION WIDTH 12.2 % (11.5-14.5); WHITE BLOOD COUNT 10.1 10^3/uL (4.0-10.0)
[2018-04-03 06:33] LABS: ANION GAP 7 MEQ/L (8-16); BLOOD UREA NITROGEN 16 MG/DL (7-18); CALCIUM LEVEL 8.1 MG/DL (8.8-10.2); CARBON DIOXIDE LEVEL 26 MEQ/L (21-32); CHLORIDE LEVEL 112 MEQ/L (98-107); CREATININE FOR GFR 0.64 MG/DL (0.70-1.30); GLOMERULAR FILTRATION RATE > 60.0 (>49); GLUCOSE, FASTING 108 MG/DL (70-100); POTASSIUM SERUM 4.4 MEQ/L (3.5-5.1); SODIUM LEVEL 145 MEQ/L (136-145)
[2018-04-03] MEDS: HEPARIN SOD (PORCINE) 5000 UNITS/ML VIAL SC ×3 (06:39→20:46)
[2018-04-03] MEDS ORDERED: fentaNYL 100 MCG/2 ML INJECTION (J3010) As Ordered (07:14)
[2018-04-03] MEDS ORDERED: LIDOCAINE 2% INJ 100 MG/5 ML SDV (FOR ANES.) As Ordered (07:14)
[2018-04-03] MEDS ORDERED: PROPOFOL 200 MG/20 ML VIAL As Ordered (07:14)
[2018-04-03] MEDS ORDERED: MIDAZOLAM INJ 2 MG/2 ML VIAL (J2250) As Ordered (07:14)
[2018-04-03] MEDS ORDERED: ONDANSETRON 4MG/2ML VIAL (J2405) As Ordered (07:21)
[2018-04-03] MEDS: LIDOCAINE W/EPINEPHRINE 1% 20ML VIAL As Ordered (07:50)
[2018-04-03] MEDS ORDERED: ONDANSETRON 4MG/2ML VIAL (J2405) IV (08:30)
[2018-04-03] MEDS: LR 1,000 ML IV (08:30)
[2018-04-03] MEDS ORDERED: fentaNYL 100 MCG/2 ML INJECTION (J3010) IV (08:30)
[2018-04-03] MEDS: LEVEMIR (INSULIN DETEMIR) 1 UNITS/0.01ML SC (08:34)
[2018-04-03] MEDS: HumaLOG INSULIN (NovoLOG) PER UNIT SC ×3 (08:34→17:21)
[2018-04-03] MEDS: TAMSULOSIN 0.4 MG CAP PO (08:35)
[2018-04-03] MEDS: SERTRALINE 100 MG TAB PO (08:35)
[2018-04-03] MEDS: ASPIRIN 81 MG ENTERIC TAB PO (08:35)
[2018-04-03] MEDS: ATORVASTATIN 20 MG TAB PO (08:35)
[2018-04-03] MEDS: ARIPiprazole 15 MG TAB (AbiLIFY) PO (08:59)
[2018-04-03] MEDS: NORCO, ANEXSIA 5/325MG TABLET (HYDROcodone/ACETAMINOPHEN) PO ×3 (09:00→22:40)
[2018-04-03 11:33] LABS: BEDSIDE GLUCOSE 296 MG/DL (80-115)
[2018-04-03 17:15] LABS: BEDSIDE GLUCOSE 165 MG/DL (80-115)
[2018-04-03 20:41] LABS: BEDSIDE GLUCOSE 158 MG/DL (80-115)
[2018-04-04] MEDS: ACETAMINOPHEN TAB 650MG DOSE (2X325MG) PO (01:55)
[2018-04-04] MEDS: VANCOMYCIN HCL 1,000 MG, VIAL MATE ADAPTER 1 EACH in D5W 250 ML IV ×3 (01:55→17:24)
[2018-04-04] MEDS: NS 1,000 ML IV (02:00)
[2018-04-04] MEDS: NYSTATIN 100,000 UNITS/GM TOPICAL PWD 15 GM TOP ×3 (03:45→22:49)
[2018-04-04] MEDS: KETOROLAC 30 MG/ML VIAL (J1885) IV ×4 (03:46→22:50)
[2018-04-04] MEDS: HEPARIN SOD (PORCINE) 5000 UNITS/ML VIAL SC ×3 (06:07→22:49)
[2018-04-04 06:23] LABS: BEDSIDE GLUCOSE 125 MG/DL (80-115)
[2018-04-04 07:11] LABS: HEMATOCRIT 34.7 % (42.0-52.0); HEMOGLOBIN 11.3 g/dl (13.5-17.5); MEAN CORPUSCULAR HEMOGLOBIN 32.7 pg (27.0-33.0); MEAN CORPUSCULAR HGB CONC 32.6 g/dl (32.0-36.5); MEAN CORPUSCULAR VOLUME 100.3 fl (80.0-96.0); PLATELET COUNT, AUTOMATED 377 10^3/uL (150-450); RED BLOOD COUNT 3.46 10^6/uL (4.30-6.10); RED CELL DISTRIBUTION WIDTH 12.2 % (11.5-14.5); WHITE BLOOD COUNT 10.4 10^3/uL (4.0-10.0)
[2018-04-04] MEDS: NORCO, ANEXSIA 5/325MG TABLET (HYDROcodone/ACETAMINOPHEN) PO ×2 (07:36→19:39)
[2018-04-04] MEDS: HumaLOG INSULIN (NovoLOG) PER UNIT SC ×3 (07:36→17:24)
[2018-04-04 07:56] LABS: ANION GAP 7 MEQ/L (8-16); BLOOD UREA NITROGEN 17 MG/DL (7-18); CALCIUM LEVEL 8.5 MG/DL (8.8-10.2); CARBON DIOXIDE LEVEL 25 MEQ/L (21-32); CHLORIDE LEVEL 112 MEQ/L (98-107); CREATININE FOR GFR 0.72 MG/DL (0.70-1.30); GLOMERULAR FILTRATION RATE > 60.0 (>49); GLUCOSE, FASTING 131 MG/DL (70-100); POTASSIUM SERUM 4.5 MEQ/L (3.5-5.1); SODIUM LEVEL 144 MEQ/L (136-145)
[2018-04-04] MEDS: SERTRALINE 100 MG TAB PO (09:30)
[2018-04-04] MEDS: SENOKOT S TAB PO (09:30)
[2018-04-04] MEDS: ATORVASTATIN 20 MG TAB PO (09:30)
[2018-04-04] MEDS: ARIPiprazole 15 MG TAB (AbiLIFY) PO (09:30)
[2018-04-04] MEDS: TAMSULOSIN 0.4 MG CAP PO (09:31)
[2018-04-04] MEDS: ASPIRIN 81 MG ENTERIC TAB PO (09:31)
[2018-04-04] MEDS: LEVEMIR (INSULIN DETEMIR) 1 UNITS/0.01ML SC (09:31)
[2018-04-04 10:32] LABS: VANCOMYCIN LEVEL TROUGH 18.4 UG/ML (10.0-20.0)
[2018-04-04] MEDS: FUROSEMIDE 40 MG/4 ML VIAL (J1940) IV (10:55)
[2018-04-04 11:57] LABS: BEDSIDE GLUCOSE 307 MG/DL (80-115)
[2018-04-04 16:45] LABS: BEDSIDE GLUCOSE 153 MG/DL (80-115)
[2018-04-04 20:57] LABS: BEDSIDE GLUCOSE 132 MG/DL (80-115)
[2018-04-05] MEDS: VANCOMYCIN HCL 1,000 MG, VIAL MATE ADAPTER 1 EACH in D5W 250 ML IV ×3 (02:07→18:11)
[2018-04-05 02:46] LABS: BEDSIDE GLUCOSE 138 MG/DL (80-115)
[2018-04-05] MEDS: NORCO, ANEXSIA 5/325MG TABLET (HYDROcodone/ACETAMINOPHEN) PO ×4 (02:46→23:20)
[2018-04-05] MEDS: KETOROLAC 30 MG/ML VIAL (J1885) IV ×4 (04:21→21:22)
[2018-04-05] MEDS: HEPARIN SOD (PORCINE) 5000 UNITS/ML VIAL SC ×3 (05:51→21:21)
[2018-04-05 07:53] LABS: BEDSIDE GLUCOSE 238 MG/DL (80-115)
[2018-04-05] MEDS: HumaLOG INSULIN (NovoLOG) PER UNIT SC ×3 (08:51→18:11)
[2018-04-05] MEDS: ASPIRIN 81 MG ENTERIC TAB PO (08:52)
[2018-04-05] MEDS: ARIPiprazole 15 MG TAB (AbiLIFY) PO (08:52)
[2018-04-05] MEDS: SERTRALINE 100 MG TAB PO (08:52)
[2018-04-05] MEDS: ATORVASTATIN 20 MG TAB PO (08:52)
[2018-04-05] MEDS: LEVEMIR (INSULIN DETEMIR) 1 UNITS/0.01ML SC (08:53)
[2018-04-05] MEDS: TAMSULOSIN 0.4 MG CAP PO (08:53)
[2018-04-05] MEDS: NYSTATIN 100,000 UNITS/GM TOPICAL PWD 15 GM TOP ×2 (08:53→21:21)
[2018-04-05 09:26] LABS: ANION GAP 8 MEQ/L (8-16); BLOOD UREA NITROGEN 23 MG/DL (7-18); CALCIUM LEVEL 8.2 MG/DL (8.8-10.2); CARBON DIOXIDE LEVEL 26 MEQ/L (21-32); CHLORIDE LEVEL 109 MEQ/L (98-107); CREATININE FOR GFR 0.73 MG/DL (0.70-1.30); GLOMERULAR FILTRATION RATE > 60.0 (>49); GLUCOSE, FASTING 285 MG/DL (70-100); POTASSIUM SERUM 4.4 MEQ/L (3.5-5.1); SODIUM LEVEL 143 MEQ/L (136-145)
[2018-04-05 11:14] LABS: BEDSIDE GLUCOSE 285 MG/DL (80-115)
[2018-04-05 16:24] LABS: BEDSIDE GLUCOSE 149 MG/DL (80-115)
[2018-04-05 19:47] LABS: BEDSIDE GLUCOSE 238 MG/DL (80-115)
[2018-04-06] MEDS: VANCOMYCIN HCL 1,000 MG, VIAL MATE ADAPTER 1 EACH in D5W 250 ML IV ×3 (02:09→20:42)
[2018-04-06] MEDS: ACETAMINOPHEN TAB 650MG DOSE (2X325MG) PO ×2 (02:13→20:43)
[2018-04-06] MEDS: KETOROLAC 30 MG/ML VIAL (J1885) IV (04:00)
[2018-04-06] MEDS: HEPARIN SOD (PORCINE) 5000 UNITS/ML VIAL SC ×3 (05:51→22:40)
[2018-04-06 06:40] LABS: BASO # 0.1 10^3/uL (0.0-0.2); BASO % 0.6 % (0.0-1.0); EOS # 0.3 10^3/uL (0.0-0.50); EOS % 3.5 % (0.0-3.0); HEMATOCRIT 31.7 % (42.0-52.0); HEMOGLOBIN 10.6 g/dl (13.5-17.5); LYMPH # 1.2 10^3/uL (1.5-4.5); MEAN CORPUSCULAR HEMOGLOBIN 32.7 pg (27.0-33.0); MEAN CORPUSCULAR HGB CONC 33.4 g/dl (32.0-36.5); MEAN CORPUSCULAR VOLUME 97.8 fl (80.0-96.0); MONO # 0.7 10^3/uL (0.0-0.8); MONO % 7.9 % (0.0-5.0); NEUTROPHILS # 6.1 10^3/uL (1.8-7.7); PLATELET COUNT, AUTOMATED 366 10^3/uL (150-450); RED BLOOD COUNT 3.24 10^6/uL (4.30-6.10); RED CELL DISTRIBUTION WIDTH 12.2 % (11.5-14.5); WHITE BLOOD COUNT 8.5 10^3/uL (4.0-10.0)
[2018-04-06 06:54] LABS: ANION GAP 7 MEQ/L (8-16); BLOOD UREA NITROGEN 19 MG/DL (7-18); CALCIUM LEVEL 8.2 MG/DL (8.8-10.2); CARBON DIOXIDE LEVEL 27 MEQ/L (21-32); CHLORIDE LEVEL 109 MEQ/L (98-107); CREATININE FOR GFR 0.71 MG/DL (0.70-1.30); GLOMERULAR FILTRATION RATE > 60.0 (>49); GLUCOSE, FASTING 185 MG/DL (70-100); POTASSIUM SERUM 4.2 MEQ/L (3.5-5.1); SODIUM LEVEL 143 MEQ/L (136-145)
[2018-04-06] MEDS: LEVEMIR (INSULIN DETEMIR) 1 UNITS/0.01ML SC (08:37)
[2018-04-06] MEDS: HumaLOG INSULIN (NovoLOG) PER UNIT SC ×3 (08:38→17:17)
[2018-04-06] MEDS: ASPIRIN 81 MG ENTERIC TAB PO (08:38)
[2018-04-06] MEDS: ATORVASTATIN 20 MG TAB PO (08:38)
[2018-04-06] MEDS: SERTRALINE 100 MG TAB PO (08:38)
[2018-04-06] MEDS: ARIPiprazole 15 MG TAB (AbiLIFY) PO (08:38)
[2018-04-06] MEDS: TAMSULOSIN 0.4 MG CAP PO (08:38)
[2018-04-06] MEDS: NYSTATIN 100,000 UNITS/GM TOPICAL PWD 15 GM TOP ×2 (08:39→20:42)
[2018-04-06] MEDS: NORCO, ANEXSIA 5/325MG TABLET (HYDROcodone/ACETAMINOPHEN) PO ×3 (08:39→23:36)
[2018-04-06 10:12] LABS: VANCOMYCIN LEVEL TROUGH 20.8 UG/ML (10.0-20.0)
[2018-04-06 11:36] LABS: BEDSIDE GLUCOSE 288 MG/DL (80-115)
[2018-04-06 12:13] LABS: BEDSIDE GLUCOSE 303 MG/DL (80-115)
[2018-04-06 16:50] LABS: BEDSIDE GLUCOSE 127 MG/DL (80-115)
[2018-04-06] MEDS: SENOKOT S TAB PO (17:29)
[2018-04-06 20:11] LABS: BEDSIDE GLUCOSE 156 MG/DL (80-115)
[2018-04-07] MEDS: VANCOMYCIN HCL 1,000 MG, VIAL MATE ADAPTER 1 EACH in D5W 250 ML IV ×3 (05:26→21:01)
[2018-04-07] MEDS: HEPARIN SOD (PORCINE) 5000 UNITS/ML VIAL SC ×3 (05:27→21:01)
[2018-04-07 06:32] LABS: BASO # 0.1 10^3/uL (0.0-0.2); BASO % 0.8 % (0.0-1.0); EOS # 0.3 10^3/uL (0.0-0.50); EOS % 3.2 % (0.0-3.0); HEMATOCRIT 35.2 % (42.0-52.0); HEMOGLOBIN 11.5 g/dl (13.5-17.5); IMMATURE GRANULOCYTE % 1.3 % (0-3.0); LYMPH # 1.4 10^3/uL (1.5-4.5); LYMPH % 15.9 % (24.0-44.0); MEAN CORPUSCULAR HEMOGLOBIN 32.4 pg (27.0-33.0); MEAN CORPUSCULAR HGB CONC 32.7 g/dl (32.0-36.5); MEAN CORPUSCULAR VOLUME 99.2 fl (80.0-96.0); MONO # 0.6 10^3/uL (0.0-0.8); MONO % 6.8 % (0.0-5.0); NEUTROPHILS # 6.3 10^3/uL (1.8-7.7); PLATELET COUNT, AUTOMATED 363 10^3/uL (150-450); RED BLOOD COUNT 3.55 10^6/uL (4.30-6.10); RED CELL DISTRIBUTION WIDTH 12.2 % (11.5-14.5); WHITE BLOOD COUNT 8.7 10^3/uL (4.0-10.0)
[2018-04-07 06:53] LABS: ANION GAP 9 MEQ/L (8-16); BLOOD UREA NITROGEN 13 MG/DL (7-18); CALCIUM LEVEL 8.5 MG/DL (8.8-10.2); CARBON DIOXIDE LEVEL 28 MEQ/L (21-32); CHLORIDE LEVEL 108 MEQ/L (98-107); CREATININE FOR GFR 0.66 MG/DL (0.70-1.30); GLOMERULAR FILTRATION RATE > 60.0 (>49); GLUCOSE, FASTING 189 MG/DL (70-100); POTASSIUM SERUM 4.4 MEQ/L (3.5-5.1); SODIUM LEVEL 145 MEQ/L (136-145)
[2018-04-07] MEDS ORDERED: PROPOFOL 200 MG/20 ML VIAL As Ordered (08:08)
[2018-04-07] MEDS: BUPIVACAINE HCL 0.25% 30 ML VIAL As Ordered (08:18)
[2018-04-07] MEDS ORDERED: fentaNYL 100 MCG/2 ML INJECTION (J3010) As Ordered (08:24)
[2018-04-07] MEDS: LR 1,000 ML IV (08:45)
[2018-04-07] MEDS ORDERED: ONDANSETRON 4MG/2ML VIAL (J2405) IV (08:45)
[2018-04-07] MEDS ORDERED: PERCOCET 5MG/325MG TAB PO (08:45)
[2018-04-07] MEDS ORDERED: fentaNYL 100 MCG/2 ML INJECTION (J3010) IV (08:45)
[2018-04-07 09:13] LABS: BEDSIDE GLUCOSE 196 MG/DL (80-115)
[2018-04-07] MEDS: LEVEMIR (INSULIN DETEMIR) 1 UNITS/0.01ML SC (09:42)
[2018-04-07] MEDS: HumaLOG INSULIN (NovoLOG) PER UNIT SC ×3 (09:43→17:03)
[2018-04-07] MEDS: TAMSULOSIN 0.4 MG CAP PO (09:44)
[2018-04-07] MEDS: ASPIRIN 81 MG ENTERIC TAB PO (09:44)
[2018-04-07] MEDS: SERTRALINE 100 MG TAB PO (09:44)
[2018-04-07] MEDS: ATORVASTATIN 20 MG TAB PO (09:44)
[2018-04-07] MEDS: ARIPiprazole 15 MG TAB (AbiLIFY) PO (09:44)
[2018-04-07] MEDS: NYSTATIN 100,000 UNITS/GM TOPICAL PWD 15 GM TOP ×2 (09:45→21:00)
[2018-04-07 11:18] LABS: BEDSIDE GLUCOSE 281 MG/DL (80-115)
[2018-04-07] MEDS: NORCO, ANEXSIA 5/325MG TABLET (HYDROcodone/ACETAMINOPHEN) PO ×2 (11:41→18:56)
[2018-04-07 16:25] LABS: BEDSIDE GLUCOSE 152 MG/DL (80-115)
[2018-04-07 19:55] LABS: BEDSIDE GLUCOSE 103 MG/DL (80-115)
[2018-04-07] MEDS: ACETAMINOPHEN TAB 650MG DOSE (2X325MG) PO (23:52)
[2018-04-08] MEDS: NORCO, ANEXSIA 5/325MG TABLET (HYDROcodone/ACETAMINOPHEN) PO ×4 (01:54→21:49)
[2018-04-08 04:17] LABS: BASO # 0.1 10^3/uL (0.0-0.2); BASO % 0.7 % (0.0-1.0); EOS # 0.3 10^3/uL (0.0-0.50); EOS % 4.1 % (0.0-3.0); HEMATOCRIT 35.2 % (42.0-52.0); HEMOGLOBIN 11.5 g/dl (13.5-17.5); IMMATURE GRANULOCYTE % 1.1 % (0-3.0); LYMPH # 1.2 10^3/uL (1.5-4.5); LYMPH % 17.3 % (24.0-44.0); MEAN CORPUSCULAR HEMOGLOBIN 32.7 pg (27.0-33.0); MEAN CORPUSCULAR HGB CONC 32.7 g/dl (32.0-36.5); MONO # 0.6 10^3/uL (0.0-0.8); MONO % 8.6 % (0.0-5.0); NEUTROPHILS # 4.8 10^3/uL (1.8-7.7); NEUTROPHILS % 68.2 % (36.0-66.0); PLATELET COUNT, AUTOMATED 340 10^3/uL (150-450); RED BLOOD COUNT 3.52 10^6/uL (4.30-6.10); RED CELL DISTRIBUTION WIDTH 12.4 % (11.5-14.5)
[2018-04-08 04:41] LABS: ANION GAP 8 MEQ/L (8-16); BLOOD UREA NITROGEN 12 MG/DL (7-18); CALCIUM LEVEL 8.7 MG/DL (8.8-10.2); CARBON DIOXIDE LEVEL 28 MEQ/L (21-32); CHLORIDE LEVEL 108 MEQ/L (98-107); CREATININE FOR GFR 0.66 MG/DL (0.70-1.30); GLOMERULAR FILTRATION RATE > 60.0 (>49); GLUCOSE, FASTING 188 MG/DL (70-100); POTASSIUM SERUM 4.4 MEQ/L (3.5-5.1); SODIUM LEVEL 144 MEQ/L (136-145)
[2018-04-08 04:43] LABS: VANCOMYCIN LEVEL TROUGH 18.9 UG/ML (10.0-20.0)
[2018-04-08] MEDS: VANCOMYCIN HCL 1,000 MG, VIAL MATE ADAPTER 1 EACH in D5W 250 ML IV ×3 (05:44→20:09)
[2018-04-08] MEDS: HEPARIN SOD (PORCINE) 5000 UNITS/ML VIAL SC ×3 (05:46→21:48)
[2018-04-08] MEDS: HumaLOG INSULIN (NovoLOG) PER UNIT SC ×3 (09:06→18:07)
[2018-04-08] MEDS: SERTRALINE 100 MG TAB PO (09:07)
[2018-04-08] MEDS: ASPIRIN 81 MG ENTERIC TAB PO (09:07)
[2018-04-08] MEDS: TAMSULOSIN 0.4 MG CAP PO (09:07)
[2018-04-08] MEDS: ATORVASTATIN 20 MG TAB PO (09:07)
[2018-04-08] MEDS: ARIPiprazole 15 MG TAB (AbiLIFY) PO (09:07)
[2018-04-08] MEDS: NYSTATIN 100,000 UNITS/GM TOPICAL PWD 15 GM TOP ×2 (09:08→20:10)
[2018-04-08] MEDS: LEVEMIR (INSULIN DETEMIR) 1 UNITS/0.01ML SC (09:08)
[2018-04-08 11:30] LABS: BEDSIDE GLUCOSE 263 MG/DL (80-115)
[2018-04-08] MEDS: SINEMET 25-100 MG TAB PO ×3 (12:37→20:09)
[2018-04-08 14:19] LABS: COMMENT Note: (.); Ca Ox Monohydrate 95 % (.); Size 7x5x3 mm (.)
[2018-04-08] MEDS: MIRALAX *UNIT DOSE* 17GM PACKET PO (15:46)
[2018-04-08 16:56] LABS: BEDSIDE GLUCOSE 128 MG/DL (80-115)
[2018-04-08 20:06] LABS: BEDSIDE GLUCOSE 136 MG/DL (80-115)
[2018-04-08] MEDS: SENOKOT S TAB PO (20:09)
[2018-04-08] MEDS: ACETAMINOPHEN TAB 650MG DOSE (2X325MG) PO (20:10)
[2018-04-09] MEDS: NORCO, ANEXSIA 5/325MG TABLET (HYDROcodone/ACETAMINOPHEN) PO ×3 (03:43→17:46)
[2018-04-09] MEDS: VANCOMYCIN HCL 1,000 MG, VIAL MATE ADAPTER 1 EACH in D5W 250 ML IV ×3 (05:00→21:53)
[2018-04-09] MEDS: HEPARIN SOD (PORCINE) 5000 UNITS/ML VIAL SC ×3 (05:00→21:54)
[2018-04-09] MEDS: ACETAMINOPHEN TAB 650MG DOSE (2X325MG) PO (06:40)
[2018-04-09 07:02] LABS: BASO # 0.1 10^3/uL (0.0-0.2); BASO % 0.6 % (0.0-1.0); EOS # 0.3 10^3/uL (0.0-0.50); EOS % 3.8 % (0.0-3.0); HEMATOCRIT 35.3 % (42.0-52.0); HEMOGLOBIN 11.7 g/dl (13.5-17.5); IMMATURE GRANULOCYTE % 0.8 % (0-3.0); LYMPH # 1.5 10^3/uL (1.5-4.5); LYMPH % 19.7 % (24.0-44.0); MEAN CORPUSCULAR HEMOGLOBIN 32.8 pg (27.0-33.0); MEAN CORPUSCULAR HGB CONC 33.1 g/dl (32.0-36.5); MEAN CORPUSCULAR VOLUME 98.9 fl (80.0-96.0); MONO # 0.6 10^3/uL (0.0-0.8); MONO % 7.9 % (0.0-5.0); NEUTROPHILS # 5.2 10^3/uL (1.8-7.7); NEUTROPHILS % 67.2 % (36.0-66.0); PLATELET COUNT, AUTOMATED 351 10^3/uL (150-450); RED BLOOD COUNT 3.57 10^6/uL (4.30-6.10); RED CELL DISTRIBUTION WIDTH 12.3 % (11.5-14.5); WHITE BLOOD COUNT 7.7 10^3/uL (4.0-10.0)
[2018-04-09 07:21] LABS: ANION GAP 7 MEQ/L (8-16); BLOOD UREA NITROGEN 11 MG/DL (7-18); CARBON DIOXIDE LEVEL 30 MEQ/L (21-32); CHLORIDE LEVEL 106 MEQ/L (98-107); CREATININE FOR GFR 0.68 MG/DL (0.70-1.30); GLOMERULAR FILTRATION RATE > 60.0 (>49); GLUCOSE, FASTING 145 MG/DL (70-100); POTASSIUM SERUM 4.2 MEQ/L (3.5-5.1); SODIUM LEVEL 143 MEQ/L (136-145)
[2018-04-09] MEDS: LEVEMIR (INSULIN DETEMIR) 1 UNITS/0.01ML SC (08:59)
[2018-04-09] MEDS: HumaLOG INSULIN (NovoLOG) PER UNIT SC ×3 (08:59→17:39)
[2018-04-09] MEDS: SINEMET 25-100 MG TAB PO ×3 (09:00→21:54)
[2018-04-09] MEDS: ASPIRIN 81 MG ENTERIC TAB PO (09:00)
[2018-04-09] MEDS: SERTRALINE 100 MG TAB PO (09:00)
[2018-04-09] MEDS: SENOKOT S TAB PO ×2 (09:00→21:54)
[2018-04-09] MEDS: ATORVASTATIN 20 MG TAB PO (09:00)
[2018-04-09] MEDS: ARIPiprazole 15 MG TAB (AbiLIFY) PO (09:00)
[2018-04-09] MEDS: TAMSULOSIN 0.4 MG CAP PO (09:00)
[2018-04-09] MEDS: NYSTATIN 100,000 UNITS/GM TOPICAL PWD 15 GM TOP ×2 (09:01→21:54)
[2018-04-09] MEDS: MIRALAX *UNIT DOSE* 17GM PACKET PO (09:01)
[2018-04-09 11:39] LABS: BEDSIDE GLUCOSE 240 MG/DL (80-115)
[2018-04-09 16:36] LABS: BEDSIDE GLUCOSE 166 MG/DL (80-115)
[2018-04-09 20:36] LABS: BEDSIDE GLUCOSE 74 MG/DL (80-115)
[2018-04-10] MEDS: NORCO, ANEXSIA 5/325MG TABLET (HYDROcodone/ACETAMINOPHEN) PO ×3 (00:35→15:49)
[2018-04-10] MEDS: HEPARIN SOD (PORCINE) 5000 UNITS/ML VIAL SC ×3 (05:03→22:19)
[2018-04-10] MEDS: VANCOMYCIN HCL 1,000 MG, VIAL MATE ADAPTER 1 EACH in D5W 250 ML IV (05:03)
[2018-04-10 06:28] LABS: BASO % 0.5 % (0.0-1.0); EOS # 0.3 10^3/uL (0.0-0.50); EOS % 4.1 % (0.0-3.0); HEMATOCRIT 34.4 % (42.0-52.0); HEMOGLOBIN 11.2 g/dl (13.5-17.5); IMMATURE GRANULOCYTE % 0.5 % (0-3.0); LYMPH # 1.4 10^3/uL (1.5-4.5); MEAN CORPUSCULAR HEMOGLOBIN 32.2 pg (27.0-33.0); MEAN CORPUSCULAR HGB CONC 32.6 g/dl (32.0-36.5); MEAN CORPUSCULAR VOLUME 98.9 fl (80.0-96.0); MONO # 0.6 10^3/uL (0.0-0.8); MONO % 7.1 % (0.0-5.0); NEUTROPHILS # 5.5 10^3/uL (1.8-7.7); NEUTROPHILS % 69.8 % (36.0-66.0); PLATELET COUNT, AUTOMATED 344 10^3/uL (150-450); RED BLOOD COUNT 3.48 10^6/uL (4.30-6.10); RED CELL DISTRIBUTION WIDTH 12.5 % (11.5-14.5); WHITE BLOOD COUNT 7.9 10^3/uL (4.0-10.0)
[2018-04-10 06:40] LABS: ANION GAP 7 MEQ/L (8-16); BLOOD UREA NITROGEN 15 MG/DL (7-18); CALCIUM LEVEL 8.8 MG/DL (8.8-10.2); CARBON DIOXIDE LEVEL 30 MEQ/L (21-32); CHLORIDE LEVEL 107 MEQ/L (98-107); CREATININE FOR GFR 0.67 MG/DL (0.70-1.30); GLOMERULAR FILTRATION RATE > 60.0 (>49); GLUCOSE, FASTING 144 MG/DL (70-100); POTASSIUM SERUM 4.2 MEQ/L (3.5-5.1); SODIUM LEVEL 144 MEQ/L (136-145)
[2018-04-10] MEDS: HumaLOG INSULIN (NovoLOG) PER UNIT SC ×3 (08:02→17:30)
[2018-04-10] MEDS: LEVEMIR (INSULIN DETEMIR) 1 UNITS/0.01ML SC (08:02)
[2018-04-10] MEDS: MIRALAX *UNIT DOSE* 17GM PACKET PO (08:02)
[2018-04-10] MEDS: SENOKOT S TAB PO ×2 (08:03→20:36)
[2018-04-10] MEDS: NYSTATIN 100,000 UNITS/GM TOPICAL PWD 15 GM TOP ×2 (08:03→20:36)
[2018-04-10] MEDS: SINEMET 25-100 MG TAB PO ×3 (08:05→20:36)
[2018-04-10] MEDS: ASPIRIN 81 MG ENTERIC TAB PO (08:05)
[2018-04-10] MEDS: ATORVASTATIN 20 MG TAB PO (08:05)
[2018-04-10] MEDS: SERTRALINE 100 MG TAB PO (08:05)
[2018-04-10] MEDS: TAMSULOSIN 0.4 MG CAP PO (08:05)
[2018-04-10] MEDS: ARIPiprazole 15 MG TAB (AbiLIFY) PO (08:05)
[2018-04-10 11:50] LABS: BEDSIDE GLUCOSE 240 MG/DL (80-115)
[2018-04-10] MEDS: ACETAMINOPHEN TAB 650MG DOSE (2X325MG) PO ×2 (12:58→20:37)
[2018-04-10 16:55] LABS: BEDSIDE GLUCOSE 87 MG/DL (80-115)
[2018-04-10 20:47] LABS: BEDSIDE GLUCOSE 142 MG/DL (80-115)
[2018-04-11 06:29] LABS: BASO # 0.1 10^3/uL (0.0-0.2); BASO % 0.7 % (0.0-1.0); EOS # 0.3 10^3/uL (0.0-0.50); EOS % 4.6 % (0.0-3.0); HEMATOCRIT 35.9 % (42.0-52.0); HEMOGLOBIN 11.8 g/dl (13.5-17.5); IMMATURE GRANULOCYTE % 0.3 % (0-3.0); LYMPH # 1.4 10^3/uL (1.5-4.5); LYMPH % 18.5 % (24.0-44.0); MEAN CORPUSCULAR HEMOGLOBIN 32.1 pg (27.0-33.0); MEAN CORPUSCULAR HGB CONC 32.9 g/dl (32.0-36.5); MEAN CORPUSCULAR VOLUME 97.6 fl (80.0-96.0); MONO # 0.5 10^3/uL (0.0-0.8); MONO % 7.1 % (0.0-5.0); NEUTROPHILS # 5.1 10^3/uL (1.8-7.7); NEUTROPHILS % 68.8 % (36.0-66.0); PLATELET COUNT, AUTOMATED 322 10^3/uL (150-450); RED BLOOD COUNT 3.68 10^6/uL (4.30-6.10); RED CELL DISTRIBUTION WIDTH 12.8 % (11.5-14.5); WHITE BLOOD COUNT 7.5 10^3/uL (4.0-10.0)
[2018-04-11 06:41] LABS: ANION GAP 7 MEQ/L (8-16); BLOOD UREA NITROGEN 17 MG/DL (7-18); CALCIUM LEVEL 8.7 MG/DL (8.8-10.2); CARBON DIOXIDE LEVEL 30 MEQ/L (21-32); CHLORIDE LEVEL 106 MEQ/L (98-107); CREATININE FOR GFR 0.76 MG/DL (0.70-1.30); GLOMERULAR FILTRATION RATE > 60.0 (>49); GLUCOSE, FASTING 168 MG/DL (70-100); POTASSIUM SERUM 4.1 MEQ/L (3.5-5.1); SODIUM LEVEL 143 MEQ/L (136-145)
[2018-04-11] MEDS: NORCO, ANEXSIA 5/325MG TABLET (HYDROcodone/ACETAMINOPHEN) PO ×2 (07:01→16:58)
[2018-04-11] MEDS: HEPARIN SOD (PORCINE) 5000 UNITS/ML VIAL SC ×3 (07:01→21:35)
[2018-04-11] MEDS: HumaLOG INSULIN (NovoLOG) PER UNIT SC ×3 (07:47→16:58)
[2018-04-11] MEDS: TAMSULOSIN 0.4 MG CAP PO (07:48)
[2018-04-11] MEDS: ARIPiprazole 15 MG TAB (AbiLIFY) PO (07:48)
[2018-04-11] MEDS: LEVEMIR (INSULIN DETEMIR) 1 UNITS/0.01ML SC (07:48)
[2018-04-11] MEDS: ATORVASTATIN 20 MG TAB PO (07:48)
[2018-04-11] MEDS: SERTRALINE 100 MG TAB PO (07:48)
[2018-04-11] MEDS: SINEMET 25-100 MG TAB PO ×3 (07:49→21:34)
[2018-04-11] MEDS: MIRALAX *UNIT DOSE* 17GM PACKET PO (07:49)
[2018-04-11] MEDS: ASPIRIN 81 MG ENTERIC TAB PO (07:49)
[2018-04-11] MEDS: SENOKOT S TAB PO ×2 (07:49→21:34)
[2018-04-11] MEDS: NYSTATIN 100,000 UNITS/GM TOPICAL PWD 15 GM TOP ×2 (07:55→21:36)
[2018-04-11 11:51] LABS: BEDSIDE GLUCOSE 180 MG/DL (80-115)
[2018-04-11 16:52] LABS: BEDSIDE GLUCOSE 147 MG/DL (80-115)
[2018-04-11 21:23] LABS: BEDSIDE GLUCOSE 165 MG/DL (80-115)
[2018-04-11] MEDS: ACETAMINOPHEN TAB 650MG DOSE (2X325MG) PO (21:34)
[2018-04-12] MEDS: NORCO, ANEXSIA 5/325MG TABLET (HYDROcodone/ACETAMINOPHEN) PO ×3 (00:24→20:35)
[2018-04-12] MEDS: HEPARIN SOD (PORCINE) 5000 UNITS/ML VIAL SC ×3 (06:05→22:14)
[2018-04-12] MEDS: ACETAMINOPHEN TAB 650MG DOSE (2X325MG) PO (06:06)
[2018-04-12 06:38] LABS: BASO # 0.1 10^3/uL (0.0-0.2); EOS # 0.4 10^3/uL (0.0-0.50); EOS % 5.3 % (0.0-3.0); HEMATOCRIT 37.8 % (42.0-52.0); HEMOGLOBIN 12.3 g/dl (13.5-17.5); IMMATURE GRANULOCYTE % 0.4 % (0-3.0); LYMPH # 1.9 10^3/uL (1.5-4.5); LYMPH % 27.7 % (24.0-44.0); MEAN CORPUSCULAR HEMOGLOBIN 32.4 pg (27.0-33.0); MEAN CORPUSCULAR HGB CONC 32.5 g/dl (32.0-36.5); MEAN CORPUSCULAR VOLUME 99.5 fl (80.0-96.0); MONO # 0.7 10^3/uL (0.0-0.8); MONO % 9.8 % (0.0-5.0); NEUTROPHILS # 3.9 10^3/uL (1.8-7.7); NEUTROPHILS % 55.8 % (36.0-66.0); PLATELET COUNT, AUTOMATED 329 10^3/uL (150-450); RED CELL DISTRIBUTION WIDTH 12.9 % (11.5-14.5)
[2018-04-12 07:03] LABS: ANION GAP 6 MEQ/L (8-16); BLOOD UREA NITROGEN 18 MG/DL (7-18); CALCIUM LEVEL 9.2 MG/DL (8.8-10.2); CARBON DIOXIDE LEVEL 31 MEQ/L (21-32); CHLORIDE LEVEL 107 MEQ/L (98-107); CREATININE FOR GFR 0.76 MG/DL (0.70-1.30); GLOMERULAR FILTRATION RATE > 60.0 (>49); GLUCOSE, FASTING 167 MG/DL (70-100); POTASSIUM SERUM 4.6 MEQ/L (3.5-5.1); SODIUM LEVEL 144 MEQ/L (136-145)
[2018-04-12] MEDS: ASPIRIN 81 MG ENTERIC TAB PO (08:22)
[2018-04-12] MEDS: TAMSULOSIN 0.4 MG CAP PO (08:22)
[2018-04-12] MEDS: SENOKOT S TAB PO ×2 (08:23→20:35)
[2018-04-12] MEDS: SINEMET 25-100 MG TAB PO ×3 (08:23→20:33)
[2018-04-12] MEDS: ATORVASTATIN 20 MG TAB PO (08:23)
[2018-04-12] MEDS: ARIPiprazole 15 MG TAB (AbiLIFY) PO (08:23)
[2018-04-12] MEDS: MIRALAX *UNIT DOSE* 17GM PACKET PO (08:23)
[2018-04-12] MEDS: SERTRALINE 100 MG TAB PO (08:23)
[2018-04-12] MEDS: LEVEMIR (INSULIN DETEMIR) 1 UNITS/0.01ML SC (08:24)
[2018-04-12] MEDS: HumaLOG INSULIN (NovoLOG) PER UNIT SC ×3 (08:24→17:11)
[2018-04-12] MEDS: NYSTATIN 100,000 UNITS/GM TOPICAL PWD 15 GM TOP ×2 (08:25→20:35)
[2018-04-12 11:28] LABS: BEDSIDE GLUCOSE 218 MG/DL (80-115)
[2018-04-12 16:35] LABS: BEDSIDE GLUCOSE 109 MG/DL (80-115)
[2018-04-12 20:45] LABS: BEDSIDE GLUCOSE 219 MG/DL (80-115)
[2018-04-13] MEDS: HEPARIN SOD (PORCINE) 5000 UNITS/ML VIAL SC ×3 (05:21→21:52)
[2018-04-13] MEDS: ACETAMINOPHEN TAB 650MG DOSE (2X325MG) PO (05:21)
[2018-04-13 08:44] LABS: BEDSIDE GLUCOSE 319 MG/DL (80-115)
[2018-04-13] MEDS: SERTRALINE 100 MG TAB PO (08:51)
[2018-04-13] MEDS: MIRALAX *UNIT DOSE* 17GM PACKET PO (08:51)
[2018-04-13] MEDS: TAMSULOSIN 0.4 MG CAP PO (08:51)
[2018-04-13] MEDS: ARIPiprazole 15 MG TAB (AbiLIFY) PO (08:51)
[2018-04-13] MEDS: ASPIRIN 81 MG ENTERIC TAB PO (08:51)
[2018-04-13] MEDS: SENOKOT S TAB PO ×2 (08:52→20:25)
[2018-04-13] MEDS: SINEMET 25-100 MG TAB PO ×3 (08:52→20:25)
[2018-04-13] MEDS: ATORVASTATIN 20 MG TAB PO (08:52)
[2018-04-13] MEDS: HumaLOG INSULIN (NovoLOG) PER UNIT SC ×3 (08:54→17:24)
[2018-04-13] MEDS: LEVEMIR (INSULIN DETEMIR) 1 UNITS/0.01ML SC (08:54)
[2018-04-13] MEDS: NYSTATIN 100,000 UNITS/GM TOPICAL PWD 15 GM TOP ×2 (08:55→20:25)
[2018-04-13 11:50] LABS: BEDSIDE GLUCOSE 192 MG/DL (80-115)
[2018-04-13] MEDS: NORCO, ANEXSIA 5/325MG TABLET (HYDROcodone/ACETAMINOPHEN) PO ×2 (12:23→18:34)
[2018-04-13 16:43] LABS: BEDSIDE GLUCOSE 183 MG/DL (80-115)
[2018-04-13 20:19] LABS: BEDSIDE GLUCOSE 231 MG/DL (80-115)
[2018-04-14] MEDS: NORCO, ANEXSIA 5/325MG TABLET (HYDROcodone/ACETAMINOPHEN) PO ×3 (01:32→16:25)
[2018-04-14] MEDS: HEPARIN SOD (PORCINE) 5000 UNITS/ML VIAL SC ×3 (05:22→21:38)
[2018-04-14 06:41] LABS: BEDSIDE GLUCOSE 215 MG/DL (80-115)
[2018-04-14] MEDS: ARIPiprazole 15 MG TAB (AbiLIFY) PO (08:40)
[2018-04-14] MEDS: HumaLOG INSULIN (NovoLOG) PER UNIT SC ×3 (08:40→18:30)
[2018-04-14] MEDS: LEVEMIR (INSULIN DETEMIR) 1 UNITS/0.01ML SC (08:40)
[2018-04-14] MEDS: SINEMET 25-100 MG TAB PO ×3 (08:40→21:37)
[2018-04-14] MEDS: MIRALAX *UNIT DOSE* 17GM PACKET PO (08:41)
[2018-04-14] MEDS: SERTRALINE 100 MG TAB PO (08:41)
[2018-04-14] MEDS: SENOKOT S TAB PO ×2 (08:41→21:37)
[2018-04-14] MEDS: TAMSULOSIN 0.4 MG CAP PO (08:41)
[2018-04-14] MEDS: ASPIRIN 81 MG ENTERIC TAB PO (08:41)
[2018-04-14] MEDS: ATORVASTATIN 20 MG TAB PO (08:41)
[2018-04-14] MEDS: NYSTATIN 100,000 UNITS/GM TOPICAL PWD 15 GM TOP ×2 (08:42→21:38)
[2018-04-14 11:58] LABS: BEDSIDE GLUCOSE 197 MG/DL (80-115)
[2018-04-14 19:01] LABS: BEDSIDE GLUCOSE 125 MG/DL (80-115)
[2018-04-14 20:19] LABS: BEDSIDE GLUCOSE 185 MG/DL (80-115)
[2018-04-14] MEDS: ACETAMINOPHEN TAB 650MG DOSE (2X325MG) PO (21:37)
[2018-04-15] MEDS: NORCO, ANEXSIA 5/325MG TABLET (HYDROcodone/ACETAMINOPHEN) PO ×3 (00:29→20:45)
[2018-04-15] MEDS: HEPARIN SOD (PORCINE) 5000 UNITS/ML VIAL SC ×3 (06:00→22:09)
[2018-04-15] MEDS: ACETAMINOPHEN TAB 650MG DOSE (2X325MG) PO (06:44)
[2018-04-15 06:51] LABS: HEMATOCRIT 39.1 % (42.0-52.0); MEAN CORPUSCULAR HEMOGLOBIN 32.6 pg (27.0-33.0); MEAN CORPUSCULAR HGB CONC 33.2 g/dl (32.0-36.5); PLATELET COUNT, AUTOMATED 281 10^3/uL (150-450); RED BLOOD COUNT 3.99 10^6/uL (4.30-6.10); RED CELL DISTRIBUTION WIDTH 13.2 % (11.5-14.5); WHITE BLOOD COUNT 6.4 10^3/uL (4.0-10.0)
[2018-04-15 07:26] LABS: ANION GAP 8 MEQ/L (8-16); BLOOD UREA NITROGEN 20 MG/DL (7-18); CALCIUM LEVEL 9.1 MG/DL (8.8-10.2); CARBON DIOXIDE LEVEL 27 MEQ/L (21-32); CHLORIDE LEVEL 106 MEQ/L (98-107); GLOMERULAR FILTRATION RATE > 60.0 (>49); GLUCOSE, FASTING 216 MG/DL (70-100); POTASSIUM SERUM 4.3 MEQ/L (3.5-5.1); SODIUM LEVEL 141 MEQ/L (136-145)
[2018-04-15] MEDS: MIRALAX *UNIT DOSE* 17GM PACKET PO (08:36)
[2018-04-15] MEDS: SENOKOT S TAB PO ×2 (08:37→20:45)
[2018-04-15] MEDS: ASPIRIN 81 MG ENTERIC TAB PO (08:37)
[2018-04-15] MEDS: NYSTATIN 100,000 UNITS/GM TOPICAL PWD 15 GM TOP ×2 (08:37→20:46)
[2018-04-15] MEDS: LEVEMIR (INSULIN DETEMIR) 1 UNITS/0.01ML SC (08:37)
[2018-04-15] MEDS: ATORVASTATIN 20 MG TAB PO (08:37)
[2018-04-15] MEDS: HumaLOG INSULIN (NovoLOG) PER UNIT SC ×3 (08:37→17:06)
[2018-04-15] MEDS: TAMSULOSIN 0.4 MG CAP PO (08:38)
[2018-04-15] MEDS: ARIPiprazole 15 MG TAB (AbiLIFY) PO (08:38)
[2018-04-15] MEDS: SERTRALINE 100 MG TAB PO (08:38)
[2018-04-15] MEDS: SINEMET 25-100 MG TAB PO ×3 (08:38→20:45)
[2018-04-15 11:55] LABS: BEDSIDE GLUCOSE 179 MG/DL (80-115)
[2018-04-15 17:07] LABS: BEDSIDE GLUCOSE 104 MG/DL (80-115)
[2018-04-15 19:59] LABS: BEDSIDE GLUCOSE 231 MG/DL (80-115)
[2018-04-16] MEDS: ACETAMINOPHEN TAB 650MG DOSE (2X325MG) PO (01:46)
[2018-04-16] MEDS: NORCO, ANEXSIA 5/325MG TABLET (HYDROcodone/ACETAMINOPHEN) PO ×3 (04:05→20:22)
[2018-04-16] MEDS: HEPARIN SOD (PORCINE) 5000 UNITS/ML VIAL SC ×3 (05:58→22:00)
[2018-04-16 06:29] LABS: BEDSIDE GLUCOSE 247 MG/DL (80-115)
[2018-04-16 08:33] LABS: HEMATOCRIT 38.3 % (42.0-52.0); HEMOGLOBIN 12.9 g/dl (13.5-17.5); MEAN CORPUSCULAR HEMOGLOBIN 33.2 pg (27.0-33.0); MEAN CORPUSCULAR HGB CONC 33.7 g/dl (32.0-36.5); MEAN CORPUSCULAR VOLUME 98.5 fl (80.0-96.0); PLATELET COUNT, AUTOMATED 265 10^3/uL (150-450); RED BLOOD COUNT 3.89 10^6/uL (4.30-6.10); RED CELL DISTRIBUTION WIDTH 13.2 % (11.5-14.5); WHITE BLOOD COUNT 7.5 10^3/uL (4.0-10.0)
[2018-04-16 08:51] LABS: ANION GAP 6 MEQ/L (8-16); BLOOD UREA NITROGEN 23 MG/DL (7-18); C REACTIVE PROTEIN QUANTITATIV < 0.30 MG/DL (0.00-0.30); CARBON DIOXIDE LEVEL 28 MEQ/L (21-32); CHLORIDE LEVEL 107 MEQ/L (98-107); GLOMERULAR FILTRATION RATE > 60.0 (>49); GLUCOSE, FASTING 297 MG/DL (70-100); MAGNESIUM LEVEL 1.6 MG/DL (1.8-2.4); POTASSIUM SERUM 4.7 MEQ/L (3.5-5.1); SODIUM LEVEL 141 MEQ/L (136-145)
[2018-04-16] MEDS: SENOKOT S TAB PO ×2 (08:53→20:20)
[2018-04-16] MEDS: ARIPiprazole 15 MG TAB (AbiLIFY) PO (08:53)
[2018-04-16] MEDS: ASPIRIN 81 MG ENTERIC TAB PO (08:53)
[2018-04-16] MEDS: SERTRALINE 100 MG TAB PO (08:53)
[2018-04-16] MEDS: ATORVASTATIN 20 MG TAB PO (08:53)
[2018-04-16] MEDS: MIRALAX *UNIT DOSE* 17GM PACKET PO (08:53)
[2018-04-16] MEDS: SINEMET 25-100 MG TAB PO ×3 (08:53→20:20)
[2018-04-16] MEDS: TAMSULOSIN 0.4 MG CAP PO (08:53)
[2018-04-16] MEDS: HumaLOG INSULIN (NovoLOG) PER UNIT SC ×3 (08:54→18:04)
[2018-04-16] MEDS: LEVEMIR (INSULIN DETEMIR) 1 UNITS/0.01ML SC (08:54)
[2018-04-16] MEDS: NYSTATIN 100,000 UNITS/GM TOPICAL PWD 15 GM TOP ×2 (08:55→20:20)
[2018-04-16 12:02] LABS: BEDSIDE GLUCOSE 199 MG/DL (80-115)
[2018-04-16 16:25] LABS: BEDSIDE GLUCOSE 116 MG/DL (80-115)
[2018-04-16 20:20] LABS: BEDSIDE GLUCOSE 225 MG/DL (80-115)
[2018-04-16] MEDS: MAGNESIUM OXIDE 400 MG TAB (MAG-OX) PO (20:20)
[2018-04-17] MEDS: HEPARIN SOD (PORCINE) 5000 UNITS/ML VIAL SC ×3 (05:52→21:29)
[2018-04-17 06:12] LABS: ANION GAP 9 MEQ/L (8-16); BLOOD UREA NITROGEN 21 MG/DL (7-18); CALCIUM LEVEL 8.9 MG/DL (8.8-10.2); CARBON DIOXIDE LEVEL 26 MEQ/L (21-32); CHLORIDE LEVEL 106 MEQ/L (98-107); CREATININE FOR GFR 0.75 MG/DL (0.70-1.30); GLOMERULAR FILTRATION RATE > 60.0 (>49); GLUCOSE, FASTING 206 MG/DL (70-100); MAGNESIUM LEVEL 1.7 MG/DL (1.8-2.4); POTASSIUM SERUM 4.2 MEQ/L (3.5-5.1); SODIUM LEVEL 141 MEQ/L (136-145)
[2018-04-17 06:17] LABS: HEMATOCRIT 36.5 % (42.0-52.0); HEMOGLOBIN 12.3 g/dl (13.5-17.5); MEAN CORPUSCULAR HEMOGLOBIN 32.9 pg (27.0-33.0); MEAN CORPUSCULAR HGB CONC 33.7 g/dl (32.0-36.5); MEAN CORPUSCULAR VOLUME 97.6 fl (80.0-96.0); PLATELET COUNT, AUTOMATED 233 10^3/uL (150-450); RED BLOOD COUNT 3.74 10^6/uL (4.30-6.10); RED CELL DISTRIBUTION WIDTH 13.3 % (11.5-14.5); WHITE BLOOD COUNT 8.3 10^3/uL (4.0-10.0)
[2018-04-17] MEDS: LEVEMIR (INSULIN DETEMIR) 1 UNITS/0.01ML SC (08:00)
[2018-04-17] MEDS: HumaLOG INSULIN (NovoLOG) PER UNIT SC ×3 (08:00→17:36)
[2018-04-17] MEDS: MIRALAX *UNIT DOSE* 17GM PACKET PO (08:00)
[2018-04-17] MEDS: MAGNESIUM OXIDE 400 MG TAB (MAG-OX) PO ×2 (08:01→20:14)
[2018-04-17] MEDS: SERTRALINE 100 MG TAB PO (08:01)
[2018-04-17] MEDS: SINEMET 25-100 MG TAB PO ×3 (08:01→20:14)
[2018-04-17] MEDS: ATORVASTATIN 20 MG TAB PO (08:01)
[2018-04-17] MEDS: SENOKOT S TAB PO ×2 (08:01→20:14)
[2018-04-17] MEDS: ARIPiprazole 15 MG TAB (AbiLIFY) PO (08:01)
[2018-04-17] MEDS: NYSTATIN 100,000 UNITS/GM TOPICAL PWD 15 GM TOP ×2 (08:02→20:14)
[2018-04-17] MEDS: TAMSULOSIN 0.4 MG CAP PO (08:02)
[2018-04-17] MEDS: ASPIRIN 81 MG ENTERIC TAB PO (08:02)
[2018-04-17 12:03] LABS: BEDSIDE GLUCOSE 204 MG/DL (80-115)
[2018-04-17] MEDS: NORCO, ANEXSIA 5/325MG TABLET (HYDROcodone/ACETAMINOPHEN) PO ×2 (13:02→20:13)
[2018-04-17 16:44] LABS: BEDSIDE GLUCOSE 101 MG/DL (80-115)
[2018-04-17 20:05] LABS: BEDSIDE GLUCOSE 161 MG/DL (80-115)
[2018-04-18] MEDS: ACETAMINOPHEN TAB 650MG DOSE (2X325MG) PO (01:01)
[2018-04-18] MEDS: HEPARIN SOD (PORCINE) 5000 UNITS/ML VIAL SC ×2 (05:36→14:00)
[2018-04-18 06:27] LABS: HEMATOCRIT 35.8 % (42.0-52.0); HEMOGLOBIN 11.9 g/dl (13.5-17.5); MEAN CORPUSCULAR HEMOGLOBIN 32.8 pg (27.0-33.0); MEAN CORPUSCULAR HGB CONC 33.2 g/dl (32.0-36.5); MEAN CORPUSCULAR VOLUME 98.6 fl (80.0-96.0); PLATELET COUNT, AUTOMATED 227 10^3/uL (150-450); RED BLOOD COUNT 3.63 10^6/uL (4.30-6.10); RED CELL DISTRIBUTION WIDTH 13.3 % (11.5-14.5); WHITE BLOOD COUNT 5.6 10^3/uL (4.0-10.0)
[2018-04-18 06:36] LABS: ANION GAP 8 MEQ/L (8-16); BLOOD UREA NITROGEN 23 MG/DL (7-18); CALCIUM LEVEL 8.8 MG/DL (8.8-10.2); CARBON DIOXIDE LEVEL 27 MEQ/L (21-32); CHLORIDE LEVEL 108 MEQ/L (98-107); CREATININE FOR GFR 0.75 MG/DL (0.70-1.30); GLOMERULAR FILTRATION RATE > 60.0 (>49); GLUCOSE, FASTING 199 MG/DL (70-100); MAGNESIUM LEVEL 1.9 MG/DL (1.8-2.4); POTASSIUM SERUM 4.2 MEQ/L (3.5-5.1); SODIUM LEVEL 143 MEQ/L (136-145)
[2018-04-18] MEDS: ATORVASTATIN 20 MG TAB PO (07:52)
[2018-04-18] MEDS: NORCO, ANEXSIA 5/325MG TABLET (HYDROcodone/ACETAMINOPHEN) PO (07:52)
[2018-04-18] MEDS: SENOKOT S TAB PO (07:53)
[2018-04-18] MEDS: MAGNESIUM OXIDE 400 MG TAB (MAG-OX) PO (07:53)
[2018-04-18] MEDS: SINEMET 25-100 MG TAB PO (07:53)
[2018-04-18] MEDS: ASPIRIN 81 MG ENTERIC TAB PO (07:53)
[2018-04-18] MEDS: TAMSULOSIN 0.4 MG CAP PO (07:53)
[2018-04-18] MEDS: SERTRALINE 100 MG TAB PO (07:53)
[2018-04-18] MEDS: ARIPiprazole 15 MG TAB (AbiLIFY) PO (07:53)
[2018-04-18] MEDS: NYSTATIN 100,000 UNITS/GM TOPICAL PWD 15 GM TOP (07:54)
[2018-04-18] MEDS: MIRALAX *UNIT DOSE* 17GM PACKET PO (07:54)
[2018-04-18] MEDS: HumaLOG INSULIN (NovoLOG) PER UNIT SC ×2 (07:54→13:11)
[2018-04-18] MEDS: LEVEMIR (INSULIN DETEMIR) 1 UNITS/0.01ML SC (07:54)
[2018-04-18 11:46] LABS: BEDSIDE GLUCOSE 257 MG/DL (80-115)
== END 2018-04-18 15:45 | disposition home health service (06) | DRG 853 ==
LOC: M ED 11:42 → M ED INP 15:32 → M MSPAV 17:15
PROVIDERS: Internal Medicine
PROC: 0J970ZZ Drainage of Back Subcutaneous Tissue and Fascia, Open Approach (ICD-10-PCS; principal; 2018-04-03 07:30)
PROC: 0JB70ZZ Excision of Back Subcutaneous Tissue and Fascia, Open Approach (ICD-10-PCS; 2018-04-03 07:33)
DX: A41.9 Sepsis, unspecified organism (principal); I50.31 Acute diastolic (congestive) heart failure; L03.312 Cellulitis of back [any part except buttock and flank]; L02.212 Cutaneous abscess of back [any part, except buttock and flank]; I11.0 Hypertensive heart disease with heart failure; N20.0 Calculus of kidney; G20 Parkinson's disease; R33.9 Retention of urine, unspecified; F22 Delusional disorders; N23 Unspecified renal colic; F32.9 Major depressive disorder, single episode, unspecified; B95.62 Methicillin resistant Staphylococcus aureus infection as the cause of diseases classified elsewhere; E78.5 Hyperlipidemia, unspecified; N40.1 Benign prostatic hyperplasia with lower urinary tract symptoms; E11.9 Type 2 diabetes mellitus without complications; Z79.82 Long term (current) use of aspirin; Z79.4 Long term (current) use of insulin; Z79.899 Other long term (current) drug therapy; Z88.0 Allergy status to penicillin

== ENCOUNTER 2018-12-27 16:06 | Emergency (ER) | payer OTHER, MEDICARE, MEDICAID ==
[~2018-12-27] VITALS: Ht 175.3 cm; Wt 94.1 kg
[~2018-12-27 16:06] MED LIST changes: +ALPR0.25 PO; +APAP325T4 PO; +ARIP1TAB3 PO; +ASPI81TA24 PO; -ASPI81TA83 OR; +ASPI81TA83 PO; +ATOR80TA59 PO; +CARB25TA9 PO; +DITR5TAB PO; +DOXY100T PO; +FLOM0.4C39 PO; +GLUC1000 PO; +GLUC4CHW19 PO; +HYDR-3715 PO; +INSUH10VL SC; +INSULADS INJ; +LISI-538 PO; -LISI2.5T OR; +LISI2.5T PO; +MAG400TA PO; +MAGN400T2 PO; +METF-877 PO; +NORC1TAB7 PO; -NORCOTAB PO; +OXYB10TA PO; +VICT18IN SC; +VITA100066 PO; +ZOLO100T PO
[2018-12-27 16:49] LABS: BASO % 0.4 % (0.0-1.0); EOS # 0.2 10^3/uL (0.0-0.50); EOS % 2.8 % (0.0-3.0); HEMATOCRIT 40.1 % (42.0-52.0); LYMPH # 1.1 10^3/uL (1.5-4.5); LYMPH % 12.7 % (24.0-44.0); MEAN CORPUSCULAR HGB CONC 34.9 g/dl (32.0-36.5); MEAN CORPUSCULAR VOLUME 97.3 fl (80.0-96.0); MONO # 0.6 10^3/uL (0.0-0.8); MONO % 6.8 % (0.0-5.0); NEUTROPHILS # 6.5 10^3/uL (1.8-7.7); NEUTROPHILS % 76.8 % (36.0-66.0); PLATELET COUNT, AUTOMATED 191 10^3/uL (150-450); RED BLOOD COUNT 4.12 10^6/uL (4.30-6.10); WHITE BLOOD COUNT 8.4 10^3/uL (4.0-10.0)
[2018-12-27 17:08] LABS: INR 1.05; PROTHROMBIN TIME 13.8 SECONDS (12.1-14.4)
[2018-12-27 17:18] LABS: ALBUMIN 4.1 GM/DL (3.2-5.2); ALT/SGPT 24 U/L (12-78); BILIRUBIN,DIRECT 0.2 MG/DL (0.0-0.2); BILIRUBIN,TOTAL 0.9 MG/DL (0.2-1.0); BLOOD UREA NITROGEN 21 MG/DL (7-18); CALCIUM LEVEL 9.2 MG/DL (8.8-10.2); CARBON DIOXIDE LEVEL 25 MEQ/L (21-32); CHLORIDE LEVEL 104 MEQ/L (98-107); CPK CREATINE PHOSPHOKINASE 94 U/L (39-308); CREATININE FOR GFR 1.13 MG/DL (0.70-1.30); GLOMERULAR FILTRATION RATE > 60.0 (>49); GLUCOSE, FASTING 280 MG/DL (70-100); LIPASE 89 U/L (73-393); NT-PRO BNP 383 PG/ML (<125); POTASSIUM SERUM 4.6 MEQ/L (3.5-5.1); SODIUM LEVEL 136 MEQ/L (136-145); TOTAL PROTEIN 7.3 GM/DL (6.4-8.2); TROPONIN I 0.05 NG/ML (< 0.10)
--- NOTE | 2018-12-27 17:29 | REP ---
CHEST: Single view. There is no evidence of acute infiltrate. No pleural effusion is seen. The heart is normal in size. The mediastinal silhouette is unremarkable. The visualized osseous structures are intact. IMPRESSION: No acute pulmonary disease. Electronically Signed by Aneudy Yo MD 01/01/2019 11:47 A
[2018-12-27] MEDS ORDERED: ISOVUE-370 76% 100ML VIAL (Q9967) As Ordered ONE (18:15)
--- NOTE | 2018-12-27 19:26 | ECGEPIP ---
Stationary ECG Study [facility] - ED Test Date: 2018-12-27 Pat Name: NATHANIEL DIEHL Department: Room: - Gender: M Regulatory Manager: : 1950 Requested By: Shirley Chatman Order Number: [id number] Reading MD: Kong Clark Measurements Intervals [place] Rate: 80 P: 22 ME: 147 QRS: 34 QRSD: 107 T: 156 QT: 370 QTc: 429 Interpretive Statements SINUS RHYTHM LEFT ATRIAL ENLARGEMENT NSTTW ABNORMALITIES SIMILAR TO 04/23/18 Electronically Signed On 12-27-2018 19:25:32 EDT by Kong Clark
[2018-12-27] MEDS ORDERED: GI COCKTAIL 50ML BTL(HYOSCYAMINE/MAALOX/LIDOCAINE VISCOUS)(1:3:1) PO ONE (19:30)
[2018-12-27] MEDS ORDERED: PANTOPRAZOLE 40MG INJ (PROTONIX) (C9113) IV ONE (19:30)
--- NOTE | 2018-12-27 19:32 | REP ---
CT pulmonary angiogram: With IV contrast. History: Chest pain. Comparison studies: No comparison chest CT. Contrast dose: 75 ML of Isovue [address] technique: Helical scanning is acquired and overlapping 1.5 mm and contiguous 3 mm axial images are reformatted. In addition, maximum intensity projection and multiplanar re-formation images are generated in sagittal and coronal imaging projections. CT pulmonary angiographic findings: There is good opacification of the pulmonary arterial tree. There is no CT evidence of pulmonary embolism. Thoracic aorta enhances homogeneously. There is no evidence of aneurysm or dissection. A sliding type hiatal hernia is noted at the GE junction. The esophageal orozco appear thickened circumferentially, question esophagitis. No mediastinal mass or adenopathy is observed. No pleural or pericardial effusion is seen. There is some vascular calcification including coronary artery vascular calcification. There is a small bolus in the left lower lobe. In addition, there is a 4 mm noncalcified pulmonary nodule in the left lower lobe on page 68 of 106 in series 402 of today's study. No other pulmonary nodule is seen. No adrenal lesion is seen. There is intrarenal nephrolithiasis in the upper pole of both kidneys. Impression: No CT evidence of pulmonary embolism. Vascular calcification. Intrarenal nephrolithiasis bilaterally. Hiatal hernia and diffuse mural thickening in the esophagus, question esophagitis. There is a 4 mm noncalcified pulmonary nodule in the left lower lobe. Electronically Signed by Viktor Gar MD 12/27/2018 08:30 P
[2018-12-27 22:57] LABS: MB/CK RELATIVE INDEX 3.12 (< OR =4); TROPONIN I 0.06 NG/ML (< 0.10)
[2018-12-27] MEDS ORDERED: PROT1TAB2 PO (23:07)
[2018-12-27 23:18] VITALS: BP 184/84
--- NOTE | 2018-12-28 06:02 | ECGEPIP ---
Stationary ECG Study [facility] - ED Test Date: 2018-12-27 Pat Name: NATHANIEL DIEHL Department: Room: - Gender: M Curriculum Developer: [facility] : 1950 Requested By: KRISTAL Milian Order Number: [id number] Reading MD: Kong Clark Measurements Intervals [place] Rate: 74 P: 37 PA: 153 QRS: 29 QRSD: 106 T: 167 QT: 392 QTc: 435 Interpretive Statements SINUS RHYTHM LEFT ATRIAL ENLARGEMENT PROBABLE INFERIOR MYOCARDIAL INFARCTION, PROBABLY OLD NSTTW ABNORMALITIES SIMILAR TO PRIOR ON SAME DATE Electronically Signed On 12-28-2018 6:02:09 EDT by Kong Clark
--- NOTE | 2018-12-31 06:24 | ED PDOC ---
Post-Departure Follow-Up dr judy hope faxed formal report of cta chest for fu Beau Lassiter MD December 31, 2018 06:24
== END 2018-12-27 23:32 | disposition home or self-care (01) ==
LOC: M ED 16:06
DX: R91.1 Solitary pulmonary nodule (principal); K44.9 Diaphragmatic hernia without obstruction or gangrene; E11.9 Type 2 diabetes mellitus without complications; E78.5 Hyperlipidemia, unspecified; I11.9 Hypertensive heart disease without heart failure; G20 Parkinson's disease; F33.9 Major depressive disorder, recurrent, unspecified; Z79.4 Long term (current) use of insulin; Z79.82 Long term (current) use of aspirin; Z79.891 Long term (current) use of opiate analgesic; Z79.899 Other long term (current) drug therapy; Z88.0 Allergy status to penicillin
CPT/HCPCS: 36415; 71045; 71275; 80048; 80076; 82550; 82553; 83690; 83880; 84443; 84484; 85025; 85610; 93005; 93041; 94760; 96374; 99285; C9113; Q9967

== ENCOUNTER 2019-01-06 04:59 | Observation (INO) | payer MEDICARE, MEDICAID, OTHER ==
[~2019-01-06] VITALS: Ht 175.3 cm; Wt 92.4 kg
[~2019-01-06 04:59] MED LIST changes: +PROT1TAB2 PO
[2019-01-06 05:33] LABS: BASO # 0.1 10^3/uL (0.0-0.2); BASO % 0.8 % (0.0-1.0); EOS # 0.6 10^3/uL (0.0-0.50); EOS % 8.8 % (0.0-3.0); HEMATOCRIT 41.3 % (42.0-52.0); HEMOGLOBIN 14.4 g/dl (13.5-17.5); LYMPH # 1.5 10^3/uL (1.5-4.5); MEAN CORPUSCULAR HEMOGLOBIN 33.7 pg (27.0-33.0); MEAN CORPUSCULAR HGB CONC 34.9 g/dl (32.0-36.5); MEAN CORPUSCULAR VOLUME 96.7 fl (80.0-96.0); MONO # 0.5 10^3/uL (0.0-0.8); MONO % 8.1 % (0.0-5.0); NEUTROPHILS # 3.9 10^3/uL (1.8-7.7); PLATELET COUNT, AUTOMATED 193 10^3/uL (150-450); RED BLOOD COUNT 4.27 10^6/uL (4.30-6.10); WHITE BLOOD COUNT 6.6 10^3/uL (4.0-10.0)
[2019-01-06 05:49] LABS: ALBUMIN 4.1 GM/DL (3.2-5.2); ALT/SGPT 24 U/L (12-78); BILIRUBIN,DIRECT 0.2 MG/DL (0.0-0.2); BILIRUBIN,TOTAL 0.7 MG/DL (0.2-1.0); BLOOD UREA NITROGEN 20 MG/DL (7-18); CARBON DIOXIDE LEVEL 26 MEQ/L (21-32); CHLORIDE LEVEL 110 MEQ/L (98-107); CPK CREATINE PHOSPHOKINASE 100 U/L (39-308); CREATININE FOR GFR 0.89 MG/DL (0.70-1.30); GLOMERULAR FILTRATION RATE > 60.0 (>49); GLUCOSE, FASTING 223 MG/DL (70-100); POTASSIUM SERUM 4.3 MEQ/L (3.5-5.1); SODIUM LEVEL 142 MEQ/L (136-145); TOTAL PROTEIN 6.7 GM/DL (6.4-8.2); TROPONIN I < 0.02 NG/ML (< 0.10)
--- NOTE | 2019-01-06 05:57 | REPVR ---
EXAM: CT Head Without Contrast EXAM DATE/TIME: 01/06/2019 5:39 AM CLINICAL HISTORY: 68 years old, male; Dizziness, weakness TECHNIQUE: Imaging protocol: Axial computed tomography images of the head without contrast. Radiation optimization: All CT scans at this facility use at least one of these dose optimization techniques: automated exposure control; mA and/or kV adjustment per patient size (includes targeted exams where dose is matched to clinical indication); or iterative reconstruction. COMPARISON: CT Head without contrast 03/28/2018 1:23 PM FINDINGS: Brain: There is no evidence for an acute large vessel territorial infarct, intracranial hemorrhage, mass, mass effect, or herniation. The cortical gyration pattern, basal ganglia, thalami, and cerebellum are normal in appearance. Incidental note is made of mild enlargement of the subarachnoid spaces over the frontal convexities, which is similar in appearance compared to the prior CT scan on 03/28/2018. Brainstem: Unremarkable. Midline shift: There is no midline shift. Ventricles: Normal. No ventriculomegaly. Bones/joints: Unremarkable. No acute fracture. Sinuses: Visualized sinuses are unremarkable. No fluid levels. Mastoid air cells: Visualized mastoid air cells are well aerated. No mastoid effusion. Soft tissues: Unremarkable. Vasculature: There are atherosclerotic calcifications of the intracranial portion of the internal carotid arteries. IMPRESSION: No CT evidence for an acute intracranial process. Electronically signed by: Dave Leroy On 01/06/2019 05:56:45 AM
[2019-01-06] MEDS ORDERED: MECLIZINE 25 MG TABLET PO ONE (07:00)
[2019-01-06] MEDS ORDERED: NS 500 ML IV ONE (07:00)
[2019-01-06 07:16] LABS: MAGNESIUM LEVEL 1.4 MG/DL (1.8-2.4)
--- NOTE | 2019-01-06 07:43 | REP ---
Clinical: Chest pain and dizziness . Comparison: 04/23/2018 . Findings: The mediastinum and cardiac silhouette are stable and within normal limits for portable technique. The lung sorto are clear without acute consolidation, effusion, or pneumothorax. Skeletal structures are intact. Impression: No acute cardiopulmonary process appreciated. Electronically Signed by Sheldon Raymond MD 01/06/2019 07:35 A
[2019-01-06] MEDS ORDERED: MECLIZINE 12.5 MG TAB PO PRN (08:45)
[2019-01-06] MEDS ORDERED: ENOXAPARIN 40 MG/0.4 ML SYRINGE (J1650) SC ONE (08:45)
[2019-01-06] MEDS ORDERED: GLUCOSE 4 GM CHEW TABLET PO PRN ×2 (08:45→09:00)
[2019-01-06] MEDS ORDERED: ACETAMINOPHEN TAB 650MG DOSE (2X325MG) PO PRN (08:45)
[2019-01-06] MEDS ORDERED: GLUCAGON FOR INJ 1 MG VIAL (J1610) SC PRN (08:45)
[2019-01-06] MEDS ORDERED: DEXTROSE 50% 50 ML SYRINGE IV PRN ×2 (08:45→09:00)
[2019-01-06] MEDS ORDERED: ONDANSETRON 4 MG ORAL DISINTEGRATING TAB (Q0162 PER 1MG) PO PRN (08:45)
--- NOTE | 2019-01-06 08:59 | HPEPDOC ---
General Date of Admission January 06, 2019 at 08:21 Chief Complaint The patient is a 68-year-old male admitted with a reason for visit of Vertigo. Source: Patient Exam Limitations: Clinical conditions, Other (slurred speech; pt poor historian with tangential speech at times) Timing/Duration: 4-6 hours Severity: Mild Associated Symptoms: Weakness, Dizziness History of Present Illness Pt is a 68 yo male with PMH of abscess on posterior thoracic back, status post surgical debridement, delusional disorder, and DM presented to [facility] due to vertigo that started when he was sleeping at 4AM; pt reported he woke up at 4 AM and had vertigo, noted the room is spinning. Pt said the vertigo had been constant; had resolved in the ER exam room while he lay on his back. Denies triggering factor, auditory changes, nausea, or vomiting. This is the first time he has the vertigo, stated dizziness/lightheadedness from time to time about 5 times in the past and said it could happen any time while he was walking or sitting still. Pt also said that he has occasional dyspnea for months while he was walking and that he feels generalized weakness at times. Pt denies any current dizziness/lightheadedness/vertigo, weakness, or dyspnea. Reported light black color stool for unknown period of time but denies hematochezia. He reported slurred speech d/t his Parkinson's; said that he had polio virus as a child and had high arch as a sequalae Home Medications Scheduled Aripiprazole (Aripiprazole) 30 Mg Tab, 15 MG PO QPM, (Reported) Aspirin (Aspirin EC) 81 Mg Tab, 81 MG PO DAILY, (Reported) Atorvastatin Calcium (Atorvastatin Calcium) 80 Mg Tab, 40 MG PO DAILY, (Reported) Benazepril HCl (Benazepril HCl) 5 Mg Tablet, 2.5 MG PO DAILY, (Reported) Brimonidine Tartrate/Timolol (Combigan 0.2%-0.5% Eye Drops) 5 Ml Drops, 1 DROP OD BID, (Reported) Carbidopa/Levodopa (Carbidopa-Levodopa 25-100 Tab) 1 Tab Tab, 1 TAB PO TID, (Reported) Cholecalciferol (Vitamin D3) (Vitamin D3) 1,000 Unit Tab, 2,000 UNIT PO DAILY, (Reported) Insulin Aspart Prot/Insuln Asp (Novolog Mix 70-30 Flexpen Syrn) 100 Unit/1 Ml Insuln.pen, 50 UNITS SC BID, (Reported) Insulin Human Lispro (Novolog) 100 U/Ml Inj, 5 UNITS SC DAILY, (Reported) BEFORE LUNCH Liraglutide (Victoza 2-Jacek) 18 Mg/3 Ml Inj, 1.8 MG SC DAILY, (Reported) Metformin HCl (Metformin HCl) 1,000 Mg Tab, 1,000 MG PO BID, (Reported) Oxybutynin Chloride (Oxybutynin Chloride ER) 10 Mg Tab, 10 MG PO DAILY, (Reported) Pantoprazole Sodium (Pantoprazole Sodium) 40 Mg Tablet.dr, 40 MG PO DAILY, (Reported) Tamsulosin HCl (Flomax) 0.4 Mg Cap, 0.4 MG PO DAILY, (Reported) Scheduled PRN Alprazolam (Alprazolam) 0.25 Mg Tab, 0.25 MG PO TID PRN for ANXIETY, (Reported) Allergies Coded Allergies: Penicillins (Verified Adverse Reaction, Unknown, 12/27/18) upset stomach Past Medical History Medical History 1. Abscess on posterior thoracic back, status post surgical debridement 2. Acute diastolic congestive heart failure 3. Parkinson's disease 4. Depression (delusional disorder) 6. Benign prostatic hypertrophy 7. Hypertension 8. Dyslipidemia 9. Hypertension 10. Polio virus infection as a child-high arch reported as a sequale 11. Chronic slurred speech Surgical History Appendectomy surgical debridement for abscess in posterior thoracic back Family History Significant Family History: Noncontributory (pt reported not close to family or kids) Social History * Smoker: Denies Alcohol: Denies Drugs: denies Psychosocial History: Other (PMH of ) Pt was in . Now lives by himself at home after A-FIB/CHADSVASC A-FIB History Current/History of A-Fib/PAF?: No Review of Systems Constitutional: Denies: Chills, Fever ENT: Denies: Dysphagia Pulmonary: Denies: Dyspnea Cardiovascular: Denies: Chest Pain, Palpitations, Lt Headedness Gastrointestinal: Reports: Constipation, Melena; Denies: Nausea, Vomiting, Abdominal Pain, Diarrhea, Hematochezia Neurological: Reports: Other Symptoms (Chornic slurred speech. denies tingling or loss of sensation); Denies: Numbness, Change in speech Physical Examination General Exam: Positive: Alert, No Acute Distress Eye Exam: Positive: Conjunctiva & lids normal, EOMI; Negative: Sclera icteric, Ptosis ENT Exam: Positive: Atraumatic, Mucous membr. moist/pink, Other ENT (multiple teeth loss) Neck Exam: Positive: Supple Chest Exam: Positive: Clear to auscultation, Normal air movement; Negative: Rales, Rhonchi, Wheezing Heart Exam: Positive: Rate Normal, Regular Rhythm, Normal S1, Normal S2; Negative: Murmurs Abdomen Exam: Positive: Normal bowel sounds, Soft; Negative: Tenderness Skin Exam: Positive: Nl turgor and temperature Neuro Exam: Positive: Strength at 5/5 X4 ext, Sensation Intact, Cranial Nerves 3-12 NL, Other (slurred speech that pt reported to be baseline. Resting tremors noted in b/l upper extremities worse in right); Negative: Normal Speech Psych Exam: Positive: Memory Intact, Oriented x 3 Vital Signs Vital Signs Date Time Temp Pulse Resp B/P (MAP) Pulse Ox O2 Delivery O2 Flow Rate FiO2 01/06/19 08:32 99 01/06/19 08:31 160/98 (118) 01/06/19 08:17 18 94 Room Air 01/06/19 07:32 97.9 Laboratory Data Labs 24H Laboratory Tests 2 01/06/19 05:16: Immature Granulocyte % (Auto) 0.3, White Blood Count 6.6, Red Blood Count 4.27L, Hemoglobin 14.4, Hematocrit 41.3L, Mean Corpuscular Volume 96.7H, Mean Corpuscular Hemoglobin 33.7H, Mean Corpuscular Hemoglobin Concent 34.9, Red Cell Distribution Width 11.8, Platelet Count 193, Neutrophils (%) (Auto) 59.0, Lymphocytes (%) (Auto) 23.0L, Monocytes (%) (Auto) 8.1H, Eosinophils (%) (Auto) 8.8H, Basophils (%) (Auto) 0.8, Neutrophils # (Auto) 3.9, Lymphocytes # (Auto) 1.5, Monocytes # (Auto) 0.5, Eosinophils # (Auto) 0.6H, Basophils # (Auto) 0.1, Nucleated Red Blood Cells % (auto) 0.0, Anion Gap 6L, Glomerular Filtration Rate > 60.0, Calcium Level 9.0, Magnesium Level 1.4L, Aspartate Amino Transf (AST/SGOT) 20, Alanine Aminotransferase (ALT/SGPT) 24, Alkaline Phosphatase 54, Total Bilirubin 0.7, Direct Bilirubin 0.2, Total Creatine Kinase 100, Creatine Kinase MB 3.0, Creatine Kinase MB Relative Index 3.40, Troponin I < 0.02, Total Protein 6.7, Albumin 4.1, Albumin/Globulin Ratio 1.58 01/06/19 06:15: Urine Color YELLOW, Urine Appearance CLEAR, Urine pH 5.0, Urine Specific Britt 1.018, Urine Protein NEGATIVE, Urine Glucose (UA) 3+H, Urine Ketones TRACEH, Urine Blood NEGATIVE, Urine Nitrite NEGATIVE, Urine Bilirubin NEGATIVE, Urine Urobilinogen 2.0H, Urine Leukocyte Esterase NEGATIVE, Urine WBC (Auto) 1, Urine RBC (Auto) 1, Urine Hyaline Casts (Auto) 0, Urine Bacteria (Auto) NEGATIVE, Urine Squamous Epithelial Cells 0, Urine Mucus (Auto) SMALL, Urine Sperm (Auto) CBC/BMP Laboratory Tests 01/06/19 05:16 Red Blood Count 4.27 L, Mean Corpuscular Volume 96.7 H, Mean Corpuscular Hemoglobin 33.7 H, Mean Corpuscular Hemoglobin Concent 34.9, Red Cell Distribution Width 11.8, Neutrophils (%) (Auto) 59.0, Lymphocytes (%) (Auto) 23.0 L, Monocytes (%) (Auto) 8.1 H, Eosinophils (%) (Auto) 8.8 H, Basophils (%) (Auto) 0.8, Neutrophils # (Auto) 3.9, Lymphocytes # (Auto) 1.5, Monocytes # (Auto) 0.5, Eosinophils # (Auto) 0.6 H, Basophils # (Auto) 0.1 Problems (1) Vertigo Problem Text: Vertigo r/o CVA vs TIA. w/o any hearing changes or ear symptoms. Constant nystagmus since woke up at 4AM which resolved in ER room; denies N/V. CT brain w/o contrast neg. MRI and MRA of head pending; MRA carotid pending. Pt did have chronic slurred speech which he reported to be d/t Parkinsons; was not told that he had stroke before. Pt will be on neuro-checks every 4 hours for the first 24 hours. Aspirin 81mg daily, fall precaution. Meclizine and zofran PRN (2) Orthostatic hypotension Problem Text: Pt was found to have orthostatic hypotension in ER with SBP drop>20 with position change. Likely related with Parkinson's dz. pt reported prior dizziness/lightheadedness from time to time which he said can happen while standing or sitting without any position change (3) Parkinson disease Problem Text: PMH of Parkinson's; pt is on Caarvidopa/levodopa at home. Pt did have tremor which appeared to be resting tremor thus it is questionable whether it's d/t tardive dyskinesia from antipsychotic use. Reported slurred speech with dysphagia from time to time. Pt reported he walks w/o assist at home, but reported from time to time he will have some balance issue. (4) Thoracic abscess Problem Text: Abscess on posterior thoracic back s/p surgical debridement 04/2018. Pt reported that he has been able to move his neck well with no Brudenski's sign and fever or chills. It is unlikely that pt's vertigo is associated with the prior thoracic abscess as no leukocytosis or fever, but we will order blood cx just to make sure. (5) Diastolic congestive heart failure Problem Text: No signs of decompensation at this time. Pt did report SOB while walking from time to time but reported no current dyspnea. I&O and weight daily. Cont home med Benazepril (6) Hypertension Problem Text: Pt's BP elevated 193/88 in ER, and decreased to 160s/80s after receiving Clonidine and labetalol. Continue home med ACEI and Labetalol with holding parameters. Vital signs as scheduled (7) Diabetes mellitus Problem Text: Continue home med Metformin and insulin. Pt states that he is not on the 5 units insulin at noon at home, thus we will d/c it at this time; may adjust if needed. Continue FSBS and insulin SS (8) Delusional disorder Problem Text: Patient has a PMH of delusional disorder but he is not sure why he is on Abilify and Xanax. Pt's mood and mental status appears to be grossly stable. Cont home Abilify and Xanax at this time. Plan / VTE VTE Prophylaxis Ordered?: Yes (lovenox) LIZ REAVES DO January 06, 2019 08:59
[2019-01-06] MEDS ORDERED: cloNIDine 0.1 MG TAB PO ONE (09:00)
[2019-01-06] MEDS ORDERED: ASPIRIN 81 MG ENTERIC TAB PO SCH (09:00)
[2019-01-06] MEDS ORDERED: BENAZEPRIL 5 MG TAB PO SCH (09:00)
[2019-01-06] MEDS: NovoLOG MIX 70/30 PER UNIT SC SCH ×2 (09:00→20:29)
[2019-01-06] MEDS ORDERED: PILL CUTTER 1 EACH XX PRN (09:00)
[2019-01-06] MEDS: LABETALOL 100 MG TAB PO SCH ×2 (09:05→20:28)
[2019-01-06] MEDS ORDERED: NOVOINJ2 SC (09:27)
[2019-01-06] MEDS ORDERED: PANT-23 PO (09:27)
[2019-01-06] MEDS ORDERED: BENA5TA PO (09:27)
[2019-01-06] MEDS ORDERED: COMB0.2S OD (09:27)
[2019-01-06] MEDS ORDERED: ALPRAZolam 0.25 MG TAB PO PRN (09:45)
[2019-01-06] MEDS ORDERED: MAGNESIUM OXIDE 400 MG TAB (MAG-OX) PO ONE (11:00)
[2019-01-06 11:16] VITALS: BP 162/82
[2019-01-06] MEDS ORDERED: MAG SULF 1GM/100ML (MAG RUN) 1 GM in APPROPRIATE DILUENT 1 EA IV ONE (11:30)
[2019-01-06] MEDS ORDERED: SLF 3 ML SYR IV PRN (11:30)
[2019-01-06] MEDS: TAMSULOSIN 0.4 MG CAP PO SCH (11:38)
[2019-01-06] MEDS: ATORVASTATIN 20 MG TAB PO SCH (11:38)
[2019-01-06] MEDS: oxyBUTYnin *DITROPAN XL* 5 MG TABCR PO SCH (11:38)
[2019-01-06] MEDS: VITAMIN D 1,000 INTERNATIONAL UNITS TABLET PO SCH (11:39)
[2019-01-06] MEDS: DOCUSATE SODIUM 100 MG CAP PO SCH ×2 (11:40→20:28)
[2019-01-06] MEDS: SINEMET 25-100 MG TAB PO SCH ×3 (11:40→20:28)
[2019-01-06] MEDS: PANTOPRAZOLE 40MG TAB (PROTONIX) PO SCH (11:40)
[2019-01-06 12:00] VITALS: BP 158/78
[2019-01-06] MEDS ORDERED: HumaLOG INSULIN (NovoLOG) PER UNIT SC SCH ×4 (12:00→21:00)
[2019-01-06] MEDS: BENAZEPRIL 5 MG TAB PO SCH (12:49)
[2019-01-06] MEDS: HumaLOG INSULIN (NovoLOG) PER UNIT SC SCH ×2 (12:49→17:57)
[2019-01-06] MEDS: SLF 3 ML SYR IV SCH ×2 (12:50→21:17)
[2019-01-06] MEDS ORDERED: PROHANCE 279.3MG/ML 5ML VIAL (A9576) As Ordered ONE (13:53)
[2019-01-06] MEDS ORDERED: PROHANCE 279.3MG/ML 15ML VIAL (A9576) As Ordered ONE (13:54)
--- NOTE | 2019-01-06 14:47 | REP ---
MRA BRAIN WITHOUT CONTRAST: HISTORY: Vertigo. 3D [id number] MR angiography was performed at the level of the [place]. There is no aneurysm or arteriovenous malformation. Mild atherosclerotic disease involves the cavernous and supraclinoid internal carotid arteries. There is origin of the right posterior cerebral artery. Major intracranial vessels are patent. The vertebral arteries are equal in size. IMPRESSION: 1. There is no aneurysm or arteriovenous malformation. 2. Atherosclerotic disease as described above. Electronically Signed by Darius Amaro MD 01/06/2019 02:48 P
--- NOTE | 2019-01-06 14:49 | REP ---
MR BRAIN WITHOUT CONTRAST: HISTORY: Vertigo. COMPARISON: MRA 12/03/[address] 01/06/2019. There are no areas of abnormal signal intensity in the brain. There is no intraparenchymal hemorrhage, infarct, mass or midline shift. The ventricular system is normal in appearance. The cortical sulci are dilated consistent with minimal volume loss. There is no extracerebral collection. Mucosal thickening is present in the left maxillary and right sphenoid sinuses. IMPRESSION: Minimal volume loss. Electronically Signed by Darius Amaro MD 01/06/2019 02:51 P
--- NOTE | 2019-01-06 15:21 | NUR ---
Recommend continue regular solids, thin liquids. Pt demonstrates decreased oral motor coordination but no overt s/sx aspiration. Dysphagia tx targeting compensatory strategy training and OME's. Addendum: 01/06/19 at 1523 by MARIA EUGENIA BROOKS [facility] Amended: Links added.
[2019-01-06 16:00] VITALS: BP 116/62
[2019-01-06] MEDS: metFORMIN (GLUCOPHAGE) 1000 MG TABLET PO SCH (17:19)
--- NOTE | 2019-01-06 17:49 | REP ---
MRA CAROTIDS WITHOUT AND WITHOUT CONTRAST: HISTORY: Vertigo. CONTRAST: ProHance 25 mL. Unenhanced 2D time of flight and contrast enhance MR angiography were performed at the level of the carotid bifurcations. The distal right common carotid artery and origins of the right external and internal and internal carotid arteries are normal. The distal left common carotid artery and origin of the left internal carotid artery are normal. There is moderate stenosis of 50% of the left external carotid artery at its origin. 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 The vertebral arteries are patent. The vertebral arteries are equal in size. IMPRESSION: 1. Moderate stenosis of 50% of the left external carotid artery at its origin. 2. 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 Electronically Signed by Darius Amaro MD 01/07/2019 08:24 A
[2019-01-06 20:00] VITALS: BP 144/68
[2019-01-06] MEDS: TIMOLOL MALEATE 0.5% OPHTH SOLN 5 ML OD SCH (20:29)
[2019-01-06] MEDS: BRIMONIDINE 0.15% OPHTH SOLN 5 ML OD SCH (20:29)
[2019-01-06] MEDS ORDERED: ARIPiprazole 15 MG TAB (AbiLIFY) PO SCH (21:00)
[2019-01-06] MEDS ORDERED: ARIPiprazole 10 MG TAB PO SCH (21:00)
--- NOTE | 2019-01-06 23:38 | ECGEPIP ---
Stationary ECG Study [facility] - ED Test Date: 2019-01-06 Pat Name: NATHANIEL DIEHL Department: Room: - Gender: M Lathe Machine Operator: karli : 1950 Requested By: JERARDO Bain Order Number: [id number] Reading MD: Derek Morgan Measurements Intervals [place] Rate: 77 P: 41 PA: 148 QRS: 42 QRSD: 110 T: 36 QT: 386 QTc: 438 Interpretive Statements SINUS RHYTHM Left atrial enlargement Nonspecific ST-T wave abnormalities Similar to tracing done 12-27-18 Electronically Signed On 01-06-2019 23:38:25 EDT by Derek Morgan
[2019-01-06 23:59] VITALS: BP 129/60
[2019-01-07 04:00] VITALS: BP 144/71
[2019-01-07] MEDS: SLF 3 ML SYR IV SCH ×2 (05:14→14:09)
[2019-01-07 06:12] LABS: HEMATOCRIT 36.7 % (42.0-52.0); HEMOGLOBIN 12.5 g/dl (13.5-17.5); MEAN CORPUSCULAR HGB CONC 34.1 g/dl (32.0-36.5); MEAN CORPUSCULAR VOLUME 99.7 fl (80.0-96.0); PLATELET COUNT, AUTOMATED 181 10^3/uL (150-450); RED BLOOD COUNT 3.68 10^6/uL (4.30-6.10); WHITE BLOOD COUNT 6.7 10^3/uL (4.0-10.0)
[2019-01-07 06:34] LABS: BLOOD UREA NITROGEN 20 MG/DL (7-18); CALCIUM LEVEL 8.3 MG/DL (8.8-10.2); CARBON DIOXIDE LEVEL 28 MEQ/L (21-32); CHLORIDE LEVEL 109 MEQ/L (98-107); CREATININE FOR GFR 0.94 MG/DL (0.70-1.30); GLOMERULAR FILTRATION RATE > 60.0 (>49); GLUCOSE, FASTING 92 MG/DL (70-100); SODIUM LEVEL 145 MEQ/L (136-145)
[2019-01-07] MEDS: HumaLOG INSULIN (NovoLOG) PER UNIT SC SCH ×2 (07:22→12:25)
[2019-01-07 08:00] VITALS: BP 146/72
[2019-01-07] MEDS: oxyBUTYnin *DITROPAN XL* 5 MG TABCR PO SCH (08:38)
[2019-01-07] MEDS: VITAMIN D 1,000 INTERNATIONAL UNITS TABLET PO SCH (08:38)
[2019-01-07] MEDS: TAMSULOSIN 0.4 MG CAP PO SCH (08:38)
[2019-01-07] MEDS: ATORVASTATIN 20 MG TAB PO SCH (08:39)
[2019-01-07] MEDS: SINEMET 25-100 MG TAB PO SCH (08:39)
[2019-01-07] MEDS: DOCUSATE SODIUM 100 MG CAP PO SCH (08:39)
[2019-01-07] MEDS: PANTOPRAZOLE 40MG TAB (PROTONIX) PO SCH (08:39)
[2019-01-07] MEDS: LABETALOL 100 MG TAB PO SCH (08:39)
[2019-01-07] MEDS: metFORMIN (GLUCOPHAGE) 1000 MG TABLET PO SCH (08:39)
[2019-01-07 08:40] VITALS: BP 144/71
[2019-01-07] MEDS: BENAZEPRIL 5 MG TAB PO SCH (08:40)
[2019-01-07] MEDS ORDERED: MECLIZINE 25 MG TABLET PO PRN (09:00)
[2019-01-07] MEDS ORDERED: NovoLOG MIX 70/30 PER UNIT SC SCH (09:00)
[2019-01-07] MEDS ORDERED: ENOXAPARIN 40 MG/0.4 ML SYRINGE (J1650) SC SCH (09:00)
[2019-01-07] MEDS: NovoLOG MIX 70/30 PER UNIT SC SCH (09:00)
[2019-01-07] MEDS: BRIMONIDINE 0.15% OPHTH SOLN 5 ML OD SCH (09:01)
[2019-01-07] MEDS: TIMOLOL MALEATE 0.5% OPHTH SOLN 5 ML OD SCH (09:01)
--- NOTE | 2019-01-07 09:28 | IPN ---
DATE: 01/07/2019 ATTENDING PHYSICIAN: Dr. Moon PRIMARY CARE PHYSICIAN: [facility]. HISTORY: Cedric Lopez is on the hospitalist service, admitted with intractable vertigo. Details on history and physical from admission. He has been seen by physical therapy. They feel that he is making some progress. The did some canalith repositioning maneuvers today and plan to come back later today to see how he has responded to this. He says he feels a little less dizzy, but he is very vague and not one to give a lot of detail with his answers. PHYSICAL EXAMINATION: 144/77. Pulse 59. General Appearance: He is alert, conversant, in no distress. He has a bit of nystagmus to the right. Coordination normal finger to nose test. No facial droop or weakness. Lungs clear. Heart: Regular rhythm. Abdomen: Soft. Nontender. Moves extremities with equal strength. LABS: CBC and BMP unremarkable. Blood sugars below 200. He had blood cultures done. IMPRESSION: 1. Intractable vertigo, probably from vestibular dysfunction. Continue to work with physical therapy. He has had meclizine ordered. Clinically he feels better. He hopefully will be well enough to go home later today. He is on a pediatric dose of meclizine which we will change today. 2. History of Parkinson disease. Continue Sinemet. 3. Pseudoaneurysm of vertebral artery. This is a pseudoaneurysm, not a true aneurysm and his vertebral arteries are patent and not significant. 4. Hypertensive heart disease. His blood pressure is well controlled on current regimen. 5. Diabetes. I will reduce his insulin while he is on an enforced diabetic diet. Continue his metformin. Reduce 70/30 insulin dose to avoid hypoglycemia. 6. Hyperlipidemia. Continue atorvastatin 40 mg daily.
[2019-01-07 12:00] VITALS: BP 117/66
[2019-01-07] MEDS ORDERED: MECL-86 PO (15:13)
--- NOTE | 2019-01-07 15:34 | NUR ---
Pt discharged from facility this date. Recommended ongoing ST in outpatient setting and patient refused. Discharge Recommendations: continue regular solids, continue thin liquids, small bites/sips, alternate bites/sips, extra condiments/sauces/gravies, please seek referral for ST services as desired and if symptoms of dysphagia worsen. Addendum: 01/07/[address] [facility] Amended: Links added.
--- NOTE | 2019-01-07 16:06 | CR ---
DATE OF CONSULTATION: 01/06/2019 REFERRING PROVIDER: Dr. Hilda Joseph REASON FOR CONSULTATION: Sudden-onset vertigo. The patient is a 68-year-old male with past medical history significant for diabetes, delusional disorder, currently on antipsychotic medication with the concurrent diagnosis of Parkinson's. Unclear whether Parkinson's is secondary to antipsychotic therapy. The patient woke up with vertigo in the morning. The symptom was transient and resolved on its own by the time the patient came to the emergency room (ER). He had an MRI of the brain, which negative for any acute stroke. At bedside, [place]-Hallpike maneuver was positive towards the right side, suggestive of benign paroxysmal positional vertigo (BPPV). He was orthostatic with systolic blood pressure dropping from 163 to 132 upon standing and heart rate rising from 76 to 86. The patient was started on aspirin in fear of the patient having a stroke. With the patient having peripheral findings of vertigo and absence of a stroke, it is a reasonable to go ahead and discontinue the aspirin, which he was not on prior to the admission. The patient denies any weakness or numbness throughout the body. He denies any change in speech. He denies any diplopia, dysarthria, dysphasia. He denies any vertigo at the present time. PAST MEDICAL HISTORY: 1. Parkinson's. Unclear cause. 2. Acute diastolic heart failure. 3. Depression. 4. Delusional disorder. 5. Benign prostatic hypertrophy. 6. Hypertension. 7. Hyperlipidemia. 8. Polio versus infection as child. 9. Chronic slurred speech. PAST SURGICAL HISTORY 1. Appendectomy. 2. Surgical debridement of abscess in the posterior thoracic spine. FAMILY HISTORY: Noncontributory. SOCIAL HISTORY: The patient denies use of any alcohol, tobacco, or illicit drugs. REVIEW OF SYSTEMS: A 14-point review of systems was obtained and is negative except as per history of present illness (HPI). ALLERGIES: PENICILLINS. HOME MEDICATIONS: - aspirin 81 mg by mouth daily - atorvastatin 80 mg by mouth daily - benazepril 5 mg/2.5 by mouth daily - brimonidine one drop right eye twice a day - carbidopa-levodopa 25/100 mg one tablet by mouth three times a day - cholecalciferol 1000 international units (IU), two tablets by mouth daily - insulin 50 units subcutaneous twice a day - NovoLog 5 units subcutaneous daily - Victoza 1.8 mg subcutaneous daily - metformin 1000 mg by mouth twice a day - oxybutynin 10 mg by mouth daily - potassium 40 mg by mouth daily - tamsulosin 0.4 mg by mouth daily - alprazolam 0.25 mg by mouth three times a day as needed for anxiety PHYSICAL EXAMINATION: Blood pressure is 116/62, pulse of 63, respiratory rate is 17, temperature is 99.9 degrees Fahrenheit, oxygenation 96% on room air. The patient is awake, alert, oriented to person, place, and time. Speech, language, comprehension, repetition are intact. The patient has some mild dysarthria. This is his baseline, he states. A resting tremor the left upper extremity is noted. Increased tone in bilateral upper extremities is noted. Masked facies is mildly present. Pupils are 3 mm, round, reactive to light. Extraocular movements are intact in all directions without nystagmus. Sensation in V1, V2, V3 is intact to light touch. No facial asymmetry to activation. Palate elevates symmetrically. Tongue is midline. No pronator drift. Strength is 5/5, including bilateral deltoids, biceps, triceps, handgrip, iliopsoas, quadriceps, anterior tibialis. Gait is slow, cautious with decreased arm swing bilaterally. Sensory is intact to light touch in all four extremities. Coordination without any gross ataxia or dysmetria. Increased tone cogwheel rigidity noted in the wrists. Positive Chicago-Hallpike maneuver toward the right, producing transient vertigo. Chicago-Hallpike negative towards the left next. Romberg testing completed and is negative. ASSESSMENT: Sudden-onset vertigo, likely benign paroxysmal positional vertigo (BPPV) towards the right in the absence of MRI evidence of stroke. PLAN: Recommend clarification whether aspirin is a home medication or a new medication for the patient. If the patient truly does take aspirin at home, he should continue that dosage. If aspirin was started in suspicion for stroke, then aspirin should be discontinued at this time. Recommend patient [facility] with [facility] management of his Parkinson's. Unclear at this point whether Parkinson's is secondary to his aripiprazole or other antipsychotic therapies in the past. Recommend vestibular physical therapy, meclizine 25 mg by mouth every 8 hours as needed for vertigo.
--- NOTE | 2019-01-30 15:17 | DSES ---
DATE OF ADMISSION: 01/06/2019 DATE OF DISCHARGE: 01/07/2019 DIAGNOSIS: Vestibular neuronitis with intractable dizziness. HISTORY: Cedric Lopez is admitted with intractable dizziness. Details from the history and physical from admission. HOSPITAL COURSE: Patient admitted with intractable vertigo. Symptoms were consistent vestibular neuronitis. MRI scan did not show any stroke. 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 He was seen by neurology. They agreed with the diagnosis of vestibular rhinitis and found no evidence of stroke and agreed with my plan to discharge the patient on 01/07/2109 On the day of discharge, the patient's physical exam is as summarized on my rounding note. DISPOSITION: Patient is discharged improved and stable condition. He is to followup with primary care provider in a week. Activity as tolerated. Regular diet. His only new medicine was meclizine 25 mg every 6 hours as needed for dizziness. Otherwise, he is to stay on the same medicine as taken prior to admission. Alprazolam 0.25 mg three times a day, aripiprazole 15 mg at bedtime, aspirin 81 mg daily, atorvastatin 40 mg daily, benazepril 2.5 mg daily, various eye drops, Sinemet 25-100 one tablet three times a day, vitamin D 2000 units daily 70/30 insulin 50 units twice daily. Sliding scale of lispro based on blood sugars, Victoza 1.8 mg daily, metformin 1000 mg twice a day, oxybutynin 10 mg daily, Protonix 40 mg daily, Flomax 0.4 mg daily. No pending labs at the time of dictation.
== END 2019-01-07 15:50 | disposition home or self-care (01) ==
LOC: M ED 04:59 → M ED INP 08:21 → M PCU 10:33
PROVIDERS: ADMIT General Practice; ATTEND General Practice
DX: H81.11 Benign paroxysmal vertigo, right ear (principal); I95.1 Orthostatic hypotension; G20 Parkinson's disease; I50.31 Acute diastolic (congestive) heart failure; I11.0 Hypertensive heart disease with heart failure; E11.9 Type 2 diabetes mellitus without complications; I65.22 Occlusion and stenosis of left carotid artery; N40.0 Benign prostatic hyperplasia without lower urinary tract symptoms; E78.49 Other hyperlipidemia; R47.81 Slurred speech; F32.9 Major depressive disorder, single episode, unspecified; F22 Delusional disorders; Z88.0 Allergy status to penicillin; Z79.84 Long term (current) use of oral hypoglycemic drugs; Z79.82 Long term (current) use of aspirin; Z79.4 Long term (current) use of insulin; Z79.899 Other long term (current) drug therapy
CPT/HCPCS: 36415; 70450; 70544; 70549; 70551; 71045; 80048; 80076; 81001; 82550; 82553; 83735; 84484; 85025; 85027; 87040; 92526; 92610; 93005; 96372; 97112; 97116; 97162; 97165; 97530; 99285; A9576; G0378; J1650; J3475

== ENCOUNTER 2019-07-05 10:59 | Observation (INO) | payer MEDICARE, MEDICAID, OTHER ==
[~2019-07-05] VITALS: Ht 175.3 cm; Wt 90.3 kg
[~2019-07-05 10:59] MED LIST changes: -ARIP1TAB3 PO; +ARIP1TAB44 PO; +BENA5TA PO; +COMB0.2S OD; +MECL-86 PO; +NOVOINJ2 SC; -OXYB10TA PO; +OXYB10TA2 PO; +PANT-23 PO
[2019-07-05] MEDS ORDERED: NS 500 ML IV ONE (11:30)
[2019-07-05] MEDS ORDERED: KETOROLAC 30 MG/ML VIAL (J1885) As Ordered ONE (11:48)
[2019-07-05 11:55] LABS: BASO % 0.4 % (0.0-1.0); EOS # 0.1 10^3/uL (0.0-0.5); EOS % 0.5 % (0.0-3.0); HEMATOCRIT 41.8 % (42.0-52.0); HEMOGLOBIN 14.3 g/dl (13.5-17.5); LYMPH # 0.7 10^3/uL (1.5-5.0); LYMPH % 5.9 % (24.0-44.0); MEAN CORPUSCULAR HEMOGLOBIN 33.3 pg (27.0-33.0); MEAN CORPUSCULAR HGB CONC 34.2 g/dl (32.0-36.5); MEAN CORPUSCULAR VOLUME 97.2 fl (80.0-96.0); MONO % 9.2 % (0.0-5.0); NEUTROPHILS # 9.4 10^3/uL (1.5-8.5); NEUTROPHILS % 83.7 % (36.0-66.0); PLATELET COUNT, AUTOMATED 227 10^3/uL (150-450); WHITE BLOOD COUNT 11.2 10^3/uL (4.0-10.0)
[2019-07-05] MEDS ORDERED: KETOROLAC 30 MG/ML VIAL (J1885) IV ONE (12:00)
[2019-07-05 12:18] LABS: ALBUMIN 4.2 GM/DL (3.2-5.2); BILIRUBIN,DIRECT 0.3 MG/DL (0.0-0.2); TOTAL PROTEIN 7.3 GM/DL (6.4-8.2)
--- NOTE | 2019-07-05 12:48 | REP ---
CHEST X-RAY: TWO VIEWS. HISTORY: Decreased breath sounds. COMPARISON CHEST X-RAY: January 06, 2019 FINDINGS: The lungs are symmetrically aerated and free of infiltrate. Pleural angles are sharp. Heart size is mildly prominent, unchanged. Pulmonary vasculature is not increased. No infiltrate is seen. IMPRESSION: Mildly prominent heart size, unchanged. No acute disease. Electronically Signed by Viktor Gar MD 07/05/2019 05:02 P
--- NOTE | 2019-07-05 12:54 | REP ---
CT ABDOMEN AND PELVIS WITHOUT IV OR ORAL CONTRAST: HISTORY: Left flank pain, rule out stones. COMPARISON: CT study, April 01, 2018. CT FINDINGS: Preliminary digital freight broker radiograph demonstrates moderate stool throughout the colon. There are calcific densities in the midabdomen on the left. On axial CT images, there is a small bullous in the left lower lobe. The lung bases are otherwise clear. The liver and spleen are normal in size, homogeneous in texture. No adrenal lesion is seen. No abnormalities noted in the gallbladder. The pancreas is unremarkable. There are bilateral intrarenal calculi. Multiple intrarenal stones are seen in each kidney. There is moderate left-sided hydronephrosis due to a large ureteropelvic junction stone on the left. This calculus measures 13 mm in greatest diameter. There is perinephric and some periureteral stranding associated with this, consistent with acute obstructive uropathy. No ureteral calculus is seen. The left periureteral stranding extends almost to the pelvis. There is a bladder calculus noted in the dependent portion of the urinary bladder on the left. This calculus measures 9 mm in diameter. The prostate is enlarged. There is a fairly large amount of formed stool throughout the large intestine. No obstructive lesion is appreciated. The appendix is surgically absent. No abdominal wall defect is seen. No bony destructive lesion is seen. IMPRESSION: Moderate left-sided hydronephrosis and obstructive uropathy due to a 13 mm left ureteral pelvic junction stone. Multiple intrarenal calculi are again noted in both kidneys. There is a 9 mm bladder calculus. A moderate amount of formed stool is seen throughout the large bowel. Electronically Signed by Viktor Gar MD 07/05/2019 05:02 P
[2019-07-05] MEDS ORDERED: LIDOCAINE 2% 5ML JELLY UROJET TOP ONE (13:15)
[2019-07-05] MEDS ORDERED: ACET650T15 PO (13:18)
[2019-07-05] MEDS ORDERED: HumaLOG INSULIN (NovoLOG) PER UNIT SC STA (13:57)
[2019-07-05] MEDS ORDERED: metFORMIN (GLUCOPHAGE) 1000 MG TABLET PO ONE (14:00)
[2019-07-05] MEDS ORDERED: COMMENTS (15:05)
[2019-07-05] MEDS ORDERED: ACET-683 PO (15:05)
[2019-07-05] MEDS ORDERED: DEXTROSE 50% 50 ML SYRINGE IV PRN (15:30)
[2019-07-05] MEDS ORDERED: ALPRAZolam 0.25 MG TAB PO PRN (15:30)
[2019-07-05] MEDS ORDERED: GLUCOSE 4 GM CHEW TABLET PO PRN (15:30)
[2019-07-05] MEDS ORDERED: GLUCAGON FOR INJ 1 MG VIAL (J1610) SC PRN (15:30)
[2019-07-05] MEDS ORDERED: ACETAMINOPHEN 500 MG TAB PO PRN (15:30)
--- NOTE | 2019-07-05 15:37 | HPEPDOC ---
[facility] Medical History & Physical Date of Admission Jul 05, 2019 Date of Service: Jul 05, 2019 Attending Physician: RASHID JACINTO MD History and Physical CHIEF COMPLAINT: Left flank pain with nausea and vomiting HISTORY OF PRESENT ILLNESS: 68-year-old male with past medical history of hypertension, diabetes mellitus insulin-dependent, renal calculi, schizophrenia, Parkinson's disease, GERD, presents from home with left flank pain for the past 2 days. Patient reports feeling well up until a couple days ago when he started having left flank pain with associated nausea and vomiting, lower abdominal pain as well. He denies any fever, chills or sweats. He reports having similar symptoms in the past when he had renal calculi which was treated with stent placement and subsequent removal. In the ED, he is found to have a UVJ stone with subsequent left sided moderate hydronephrosis. Urology was consulted by the emergency department, plan for surgical intervention later today. Patient has no complaints at this time, denies any shortness of breath, chest pain, abdominal pain or diarrhea at this time. He reports significant improvement in the flank pain after receiving Toradol reports. 10 point review of system is negative except for above PAST MEDICAL HISTORY: 1. Diabetes mellitus. 2. Hypertension. 3. Schizophrenia. 4. Parkinson's disease. 5. Renal calculi. 6. GERD. PAST SURGICAL HISTORY: 1. Appendectomy. SOCIAL HISTORY: Ex-smoker, quit many years ago. Denies alcohol use. Denies drug use FAMILY HISTORY: No family history of heart disease or malignancy ALLERGIES: Please see below. HOME MEDICATIONS: Please see below. PHYSICAL EXAMINATION: VITAL SIGNS: Please see below. GENERAL: No distress HEENT: Normocephalic, atraumatic, moist mucous membranes NECK: Supple CARDIOVASCULAR EXAMINATION: S1, S2, no murmurs RESPIRATORY EXAMINATION: Clear to auscultation, no wheezing ABDOMINAL EXAMINATION: Soft, nontender, nondistended, positive bowel sounds EXTREMITIES: Range of motion intact SKIN: No rash NEUROLOGICAL EXAMINATION: Alert and oriented 3, resting tremor noted PSYCHIATRIC EXAMINATION: Calm and cooperative LABORATORY DATA: See below. IMAGING: CT abdomen and pelvis showing obstructive uropathy with left sided moderate hydronephrosis. MICROBIOLOGY: Please see below. ASSESSMENT: 68-year-old male with multiple medical problems presents to the emergency department with obstructive uropathy and subsequent left sided moderate hydronephrosis. PLAN: 1. Obstructive uropathy. CT showing moderate left-sided hydronephrosis, urology consulted by ED, plan for surgical intervention later today, likely stent placement, nothing by mouth for procedure. Pain control, Invanz, maintenance IV fluids. Urine and blood cultures pending 2. Diabetes mellitus. Insulin-dependent, received 30 units coverage in the ED due to significant hyperglycemia, Levemir 20 units at bedtime, sliding scale insulin with meals and before bedtime. Hold home meds for now 3. Hypertension. Continue home meds 4. Schizophrenia. Continue home Abilify. 5. Parkinson's disease. Continue home carbidopa/levodopa 6. GERD. Continue home PPI. DVT prophylaxis: Heparin subcutaneous GI prophylaxis: Home PPI Vital Signs Vital Signs Date Time Temp Pulse Resp B/P (MAP) Pulse Ox O2 Delivery O2 Flow Rate FiO2 07/05/19 14:45 99.4 68 18 143/76 (98) 96 Room Air Laboratory Data Labs 24H Laboratory Tests 2 07/05/19 11:33: POC Glucose (Misc Panel) 495H, POC Sodium (Misc Panel) 136, POC Potassium (Misc Panel) 4.7, POC Chloride (Misc Panel) 98, POC Total CO2 (Misc Panel) 26.0, POC Blood Urea Nitrogen (Misc Panel 24, POC Ionized Calcium (Misc Panel) 4.7, POC Creatinine (Misc Panel) 1.2, POC Hematocrit (Misc Panel) 43.0 07/05/19 11:38: POC Lactate (Misc Panel) 1.97 07/05/19 11:41: Immature Granulocyte % (Auto) 0.3, Neutrophils (%) (Auto) 83.7H, Lymphocytes (%) (Auto) 5.9L, Monocytes (%) (Auto) 9.2H, Eosinophils (%) (Auto) 0.5, Basophils (%) (Auto) 0.4, Neutrophils # (Auto) 9.4H, Lymphocytes # (Auto) 0.7L, Monocytes # (Auto) 1.0H, Eosinophils # (Auto) 0.1, Basophils # (Auto) 0.0, Nucleated Red Blood Cells % (auto) 0.0, Total Bilirubin 1.0, Direct Bilirubin 0.3H, Aspartate Amino Transf (AST/SGOT) 14, Alanine Aminotransferase (ALT/SGPT) 26, Alkaline Phosphatase 66, Total Protein 7.3, Albumin 4.2, Albumin/Globulin Ratio 1.35, Lipase 68L 07/05/19 12:55: Bedside Glucose (Misc Panel) 427H 07/05/19 13:19: Urine Color YELLOW, Urine Appearance CLEAR, Urine pH 6.0, Urine Specific [place] 1.028, Urine Protein NEGATIVE, Urine Glucose (UA) 3+H, Urine Ketones TRACEH, Urine Blood 2+H, Urine Nitrite NEGATIVE, Urine Bilirubin NEGATIVE, Urine Urobilinogen 0.2, Urine Leukocyte Esterase NEGATIVE, Urine WBC (Auto) 1, Urine RBC (Auto) 28H, Urine Hyaline Casts (Auto) 0, Urine Bacteria (Auto) 1+H, Urine Squamous Epithelial Cells 0, Urine Mucus (Auto) SMALL, Urine Sperm (Auto) 07/05/19 14:59: CBC/BMP Laboratory Tests 07/05/19 11:41 Home Medications Scheduled Aripiprazole (Aripiprazole) 30 Mg Tab, 15 MG PO QPM Aspirin (Aspirin EC) 81 Mg Tab, 81 MG PO DAILY Atorvastatin Calcium (Atorvastatin Calcium) 80 Mg Tab, 40 MG PO DAILY Benazepril HCl (Benazepril HCl) 5 Mg Tablet, 5 MG PO DAILY Carbidopa/Levodopa (Carbidopa-Levodopa 25-100 Tab) 1 Tab Tab, 1 TAB PO TID Cholecalciferol (Vitamin D3) (Vitamin D3) 1,000 Unit Tab, 2,000 UNIT PO DAILY Insulin Aspart Prot/Insuln Asp (Novolog Mix 70-30 Flexpen Syrn) 100 Unit/1 Ml Insuln.pen, 38 UNITS SC BID Liraglutide (Victoza 2-Jacek) 18 Mg/3 Ml Inj, 1.8 MG SC DAILY Metformin HCl (Metformin HCl) 1,000 Mg Tab, 1,000 MG PO BID TAKEN WITH BREAKFAST AND DINNER Oxybutynin Chloride (Oxybutynin Chloride ER) 10 Mg Tab, 10 MG PO DAILY Pantoprazole Sodium (Pantoprazole Sodium) 40 Mg Tablet.dr, 40 MG PO QAM Tamsulosin HCl (Flomax) 0.4 Mg Cap, 0.4 MG PO DAILY Scheduled PRN Acetaminophen (Acetaminophen) 500 Mg Tablet, 1,000 MG PO Q8H PRN for PAIN Alprazolam (Alprazolam) 0.25 Mg Tab, 0.25 MG PO TID PRN for ANXIETY Miscellaneous Medications [Comments] PT IS EXTREMELY CONFUSED AND CAN ONLY REMEBER TAKING MEDS A COUPLE DAYS AGO. MEDICATION LIST WAS COMPILED BY CALLING AND GETING A LIST FROM THE [facility] Allergies Coded Allergies: Penicillins (Verified Adverse Reaction, Unknown, 12/27/18) upset stomach A-FIB/CHADSVASC A-FIB History Current/History of A-Fib/PAF?: No RASHID JACINTO MD Jul 05, 2019 15:37
[2019-07-05] MEDS ORDERED: NS 1,000 ML IV SCH (16:00)
[2019-07-05] MEDS: ERTAPENEM SODIUM 1 GM in NS MINI-BAG PLUS 50 ML IV SCH (16:09)
[2019-07-05 16:50] VITALS: BP 161/80
[2019-07-05] MEDS: HumaLOG INSULIN (NovoLOG) PER UNIT SC SCH ×2 (17:14→21:00)
[2019-07-05] MEDS: SINEMET 25-100 MG TAB PO SCH ×2 (17:55→21:38)
[2019-07-05] MEDS: D5W/0.9% SODIUM CHLORIDE 1,000 ML IV SCH (17:55)
[2019-07-05 17:59] VITALS: BP 147/78
[2019-07-05] MEDS: LEVEMIR (INSULIN DETEMIR) 1 UNITS/0.01ML SC SCH (18:14)
[2019-07-05] MEDS ORDERED: DEXTROSE 50% 50 ML SYRINGE IV STA (18:40)
[2019-07-05 20:00] VITALS: BP 135/61
[2019-07-05] MEDS: ARIPiprazole 15 MG TAB (AbiLIFY) PO SCH (21:38)
[2019-07-05] MEDS: HEPARIN SOD (PORCINE) 5000 UNITS/ML VIAL SC SCH (21:38)
[2019-07-06] VITALS (8 sets, daily range): BP systolic 136–187; BP diastolic 65–85
[2019-07-06] MEDS: D5W/0.9% SODIUM CHLORIDE 1,000 ML IV SCH (04:42)
[2019-07-06] MEDS ORDERED: ceFAZolin SOD 2 GM in IV 1 EA IV ONE (06:00)
[2019-07-06 06:01] LABS: HEMATOCRIT 35.2 % (42.0-52.0); MEAN CORPUSCULAR HEMOGLOBIN 33.6 pg (27.0-33.0); MEAN CORPUSCULAR HGB CONC 34.4 g/dl (32.0-36.5); MEAN CORPUSCULAR VOLUME 97.8 fl (80.0-96.0); PLATELET COUNT, AUTOMATED 165 10^3/uL (150-450); WHITE BLOOD COUNT 8.4 10^3/uL (4.0-10.0)
[2019-07-06 06:02] LABS: HEMOGLOBIN 12.1 g/dl (13.5-17.5)
[2019-07-06 06:19] LABS: BILIRUBIN,TOTAL 0.6 MG/DL (0.2-1.0); CALCIUM LEVEL 8.6 MG/DL (8.8-10.2); CREATININE FOR GFR 1.44 MG/DL (0.70-1.30); GLOMERULAR FILTRATION RATE 52.1 (>49); POTASSIUM SERUM 4.7 MEQ/L (3.5-5.1)
[2019-07-06 06:20] LABS: ALBUMIN 3.2 GM/DL (3.2-5.2); MAGNESIUM LEVEL 1.6 MG/DL (1.8-2.4); TOTAL PROTEIN 5.9 GM/DL (6.4-8.2)
[2019-07-06] MEDS ORDERED: MAG SULF 1GM/100ML (MAG RUN) 1 GM in IV 1 EA IV ONE (08:00)
[2019-07-06] MEDS: PANTOPRAZOLE 40MG TAB (PROTONIX) PO SCH (08:39)
[2019-07-06] MEDS: ATORVASTATIN 20 MG TAB PO SCH (08:39)
[2019-07-06] MEDS: VITAMIN D 1,000 INTERNATIONAL UNITS TABLET PO SCH (08:39)
[2019-07-06] MEDS: HumaLOG INSULIN (NovoLOG) PER UNIT SC SCH ×4 (08:39→20:15)
[2019-07-06] MEDS: ASPIRIN 81 MG ENTERIC TAB PO SCH (08:40)
[2019-07-06] MEDS: oxyBUTYnin *DITROPAN XL* 5 MG TABCR PO SCH (08:40)
[2019-07-06] MEDS: SINEMET 25-100 MG TAB PO SCH ×3 (08:40→20:09)
[2019-07-06] MEDS: TAMSULOSIN 0.4 MG CAP PO SCH (08:40)
[2019-07-06] MEDS: BENAZEPRIL 5 MG TAB PO SCH (08:40)
--- NOTE | 2019-07-06 08:56 | IPNPDOC ---
Text Note Date of Service The patient was seen on 07/06/19. NOTE Subjective: Patient seen and examined at bedside. Overnight events significant for hypoglycemia, transferred to PCU for closer monitoring. This morning he has no new medical complaints. Denies chest pain, shortness of breath, dizziness, N/V/D. Objective: VITAL SIGNS: Please see below. GENERAL: NAD, lying comfortably in bed, elderly HEENT: NC/AT, EOMI NECK: Supple CARDIOVASCULAR EXAMINATION: +S1S2, RRR RESPIRATORY EXAMINATION: CTA B/L ABDOMINAL EXAMINATION: soft, NT, +BS Ext: trace edema ASSESSMENT: 68-year-old male with multiple medical problems presents to the emergency department with obstructive uropathy and subsequent left sided moderate hydronephrosis. PLAN: 1. Obstructive uropathy. CT showing moderate left-sided hydronephrosis, urology consulted, plan for surgical intervention later today, NPO for procedure. Pain control, Invanz, maintenance IV fluids - on D5NS, reduce rate. Urine and blood cultures pending 2. Diabetes mellitus. Insulin-dependent, received 30 units coverage in the ED due to significant hyperglycemia, Levemir 20 units at bedtime, sliding scale insulin with meals and before bedtime. hypoglycemic overnight - dextrose with maintenance fluids 3. Hypertension. Continue home meds 4. Schizophrenia. Continue home Abilify. 5. Parkinson's disease. Continue home carbidopa/levodopa 6. GERD. Continue home PPI. Dispo: pending urologic surgical intervention today; monitor blood sugar; possible transfer to med/surg VS,Sammy, I+O VS, Sammy, I+O Laboratory Tests 07/05/19 11:41 07/06/19 05:31 Vital Signs Date Time Temp Pulse Resp B/P (MAP) Pulse Ox O2 Delivery O2 Flow Rate FiO2 07/06/19 08:40 187/84 07/06/19 04:00 98.4 68 20 95 Room Air I&O- Last 24 Hours up to 6 AM 07/06/19 06:00 Intake Total 1715 ml Output Total 300 ml Balance 1415 ml VERONIKA GUTIERREZ MD Jul 06, 2019 08:56
[2019-07-06] MEDS: HEPARIN SOD (PORCINE) 5000 UNITS/ML VIAL SC SCH ×2 (09:00→20:09)
[2019-07-06] MEDS: KETOROLAC 30 MG/ML VIAL (J1885) IV PRN (16:32)
[2019-07-06] MEDS: ERTAPENEM SODIUM 1 GM in NS MINI-BAG PLUS 50 ML IV SCH (16:35)
[2019-07-06] MEDS ORDERED: CONRAY-60 60% 50ML VIAL (Q9961) As Ordered ONE (17:34)
[2019-07-06] MEDS ORDERED: PROPOFOL 200 MG/20 ML VIAL As Ordered ONE (17:45)
[2019-07-06] MEDS ORDERED: SUGAMMADEX SODIUM 500 MG/5 ML VIAL (BRIDION) As Ordered ONE (17:45)
[2019-07-06] MEDS ORDERED: MIDAZOLAM INJ 2 MG/2 ML VIAL (J2250) As Ordered ONE (17:45)
[2019-07-06] MEDS ORDERED: ONDANSETRON 4MG/2ML VIAL (J2405) As Ordered ONE (17:45)
[2019-07-06] MEDS ORDERED: dexameTHASONE 4 MG/ML 1ML VIAL (J1100) As Ordered ONE (17:45)
[2019-07-06] MEDS ORDERED: fentaNYL 250 MCG/5 ML INJECTION (J3010) As Ordered ONE (17:45)
[2019-07-06] MEDS ORDERED: LIDOCAINE 2% INJ 100 MG/5 ML SDV (FOR ANES.) As Ordered ONE (17:45)
[2019-07-06] MEDS ORDERED: METOCLOPRAMIDE INJ 10MG/2ML VIAL (J2765) As Ordered ONE (17:45)
[2019-07-06] MEDS ORDERED: ROCURONIUM BROMIDE 50 MG/5 ML VIAL As Ordered ONE (17:45)
[2019-07-06] MEDS ORDERED: PHENYLephrine HCL 500 MCG/5 ML (100MCG/ML) SYRINGE (J2370) As Ordered ONE (18:09)
[2019-07-06] MEDS ORDERED: DESFLURANE 240 ML INHALANT As Ordered ONE (18:10)
[2019-07-06] MEDS ORDERED: SUCCINYLCHOLINE 100 MG/5 ML SYRINGE (J0330) As Ordered ONE (18:11)
[2019-07-06] MEDS ORDERED: LR 1,000 ML IV SCH (19:00)
--- NOTE | 2019-07-06 19:25 | POST-OPPD ---
Postoperative Procedure Note Date Of Procedure: Jul 06, 2019 Time Of Procedure: 18:30 PREOPERATIVE DIAGNOSIS: Impacted left UPJ calculus and bladder calculus POSTOPERATIVE DIAGNOSIS: Same FINDINGS: Large prostate median lobe with large bladder calculus and impacted left UPJ calculus PROCEDURE: Cystoscopy, bladder litholapaxy with stone extraction and left retrograde pyelogram with insertion of double-J stent SURGEON: Quincy Clements M.D. SHEET ROCK INSTALLER: None ANESTHESIA: Gen. INDICATION FOR OPERATION: Patient presented with abdominal pain and was found to have a large bladder calculus and an impacted left UPJ calculus. Operating room for extraction of bladder stone and insertion of left ureteral stent. DESCRIPTION OF OPERATION: The patient was placed on the table in supine position and given general anesthesia. He was then placed in the lithotomy position, prepped with Betadine paint and draped in aseptic manner. A timeout was then performed. A rigid ureteroscope was then inserted into the meatus and advanced under direct vision of a 30 lens to the bladder. The patient's found to have a mildly obstructive prostate, but a very large median lobe. The bladder had 2+ trabeculation present. The bladder was then filled and the patient's found to have a large stone in the floor of the bladder. This was crushed with the lith otripter and extracted. Ureteral orifices then catheterized with a 5 Cuban open-ended catheter and retrograde injection of 10 mL of Conray showed the patient had a normal ureter except for tortuosity. He also had an impacted stone at the left UPJ. The catheter was then advanced up to the stone and the wire guide was attempted to be manipulated around the stone. The stone finally d islodged and the wire could then be advanced into the renal pelvis. There is removed and a 5 Cuban double-J stent was then passed over this wire and curled well in the renal pelvis and in the bladder when the wire was removed. Both ends of the catheter curled well and the bladder was drained, cystoscope was removed. Rectal examination showed a 20 g prostate with no other rectal masses. Patient was then awakened and sent to recovery room stable condition having tolerated procedure well. SPECIMENS: Bladder calculus ESTIMATED BLOOD LOSS: Less than 10 mL REPLACED: As per anesthesia record DRAINS: 6 Cuban double-J stent COMPLICATIONS: None POSTOPERATIVE CONDITION: Good QUINCY CLEMENTS MD Jul 06, 2019 19:25
[2019-07-06] MEDS: ARIPiprazole 15 MG TAB (AbiLIFY) PO SCH (20:09)
[2019-07-06] MEDS: LEVEMIR (INSULIN DETEMIR) 1 UNITS/0.01ML SC SCH (20:10)
--- NOTE | 2019-07-06 20:54 | CR ---
DATE OF CONSULTATION: 07/05/2019 CHIEF COMPLAINT: Left ureteropelvic junction (UPJ) calculus and bladder calculus. HISTORY OF PRESENT ILLNESS: This is a 68-year-old white male. He states he was in his usual state of health until about two days ago when he started having some left flank pain. He had progressed to the point where he finally presented to the emergency room for evaluation. A CT scan was performed, showing the patient had several stones in the left kidney with one 13 mm stone obstructing the UPJ and a smaller stone in the bladder measuring 9 mm. Upon review of the CT scan, the stone may be in the intramural portion of the ureter. PAST MEDICAL HISTORY: 1. Diabetes mellitus. 2. Hypertension. 3. Schizophrenia. 4. Parkinson's disease. 5. Renal calculi. 6. Gastroesophageal reflux disease (GERD). PAST SURGICAL HISTORY: Significant only for appendectomy. SOCIAL HISTORY: Patient is . He is an ex-smoker, having quit years ago. Denies any alcohol or recreational drug use. FAMILY HISTORY: Negative for renal calculus disease. ALLERGIES: PENICILLINS, which cause him to have stomach upset. HOME MEDICATIONS: Include: - aripiprazole 30 mg daily - aspirin 81 mg daily - atorvastatin 80 mg tablet, 1/2 tablet daily - benzapine 5 mg daily - carbidopa/levodopa 25/100 mg tablet, one three times a day - cholecalciferol 2000 units daily - insulin NovoLog mix 70/30 with a FlexPen 38 units subcutaneous twice a day - Victoza 1.8 mg subcutaneous daily - metformin 1000 mg twice a day - oxybutynin 10 mg daily - pantoprazole 40 mg every morning - tamsulosin 4 mg daily REVIEW OF SYSTEMS: A 10-point review of systems was within normal limits. PHYSICAL EXAMINATION: Shows an alert, oriented white male who is in no acute distress and appears older than his stated age. HEENT: Pupils are equal and reactive to light. Sclerae white. Extraocular muscles intact. Neck is supple without adenopathy. Trachea was in midline with no jugular venous distention. CHEST: Normal thoracic with breath sounds bilaterally present, equal and clear. CARDIAC: Rhythm is regular without murmurs. ABDOMEN: Flat, soft, benign. No masses, organomegaly or tenderness. GENITALIA: Shows an uncircumcised penis with normal scrotum, testicles, epididymides, perineum. Patient is wearing a Depends and admits that he does have some urge incontinence, but it is not an issue for him and he does not wish to take other medications for this at this time. RECTAL EXAMINATION: Deferred until surgery. LABORATORY DATA: The patient has a CT scan which confirms a 13 mm calculus at the UPJ and a 9 mm calculus which appears like it is in the intramural portion of the ureter, perhaps in the bladder. The options were discussed with the patient and he has agreed to a ureteral stent insertion. Depending on the location of the bladder or ureteral stone, he will either have the stone crushed with a lithotrite or a laser lithotripter or have ureteroscopic treatment on the stone, depending on the stone's location. Possible complications were discussed, including but not limited to infection, pain, strictures, bleeding, perforation. The patient expressed acknowledgment and agreed to continue with plans for stent insertion and treatment of the bladder or ureteral calculus. ASSESSMENT: Bladder calculus Obstructing 13mm Left UPJ calculus PLAN: Extract of bladder calculus and insertin of ureteral stent MTDD
[2019-07-06] MEDS ORDERED: MORPHINE 2 MG/ML 1ML VIAL (J2270) IV ONE (21:15)
[2019-07-07] MEDS: KETOROLAC 30 MG/ML VIAL (J1885) IV PRN (03:24)
[2019-07-07 06:00] VITALS: BP 161/72
[2019-07-07] MEDS: HumaLOG INSULIN (NovoLOG) PER UNIT SC SCH ×2 (07:53→11:56)
[2019-07-07] MEDS: VITAMIN D 1,000 INTERNATIONAL UNITS TABLET PO SCH (08:58)
[2019-07-07] MEDS: ASPIRIN 81 MG ENTERIC TAB PO SCH (08:58)
[2019-07-07] MEDS: HEPARIN SOD (PORCINE) 5000 UNITS/ML VIAL SC SCH (08:58)
[2019-07-07] MEDS: PANTOPRAZOLE 40MG TAB (PROTONIX) PO SCH (08:58)
[2019-07-07 08:59] VITALS: BP 130/60
[2019-07-07] MEDS: ATORVASTATIN 20 MG TAB PO SCH (08:59)
[2019-07-07] MEDS: oxyBUTYnin *DITROPAN XL* 5 MG TABCR PO SCH (08:59)
[2019-07-07] MEDS: TAMSULOSIN 0.4 MG CAP PO SCH (08:59)
[2019-07-07] MEDS: SINEMET 25-100 MG TAB PO SCH (08:59)
[2019-07-07] MEDS: BENAZEPRIL 5 MG TAB PO SCH (08:59)
--- NOTE | 2019-07-07 09:02 | REP ---
C-ARM VIEWS DURING LEFT URETERAL STENT PLACEMENT: Three C-arm views performed. Contrast partially opacifies the left ureter and pelvicaliceal system. Left ureteral stent is placed at the proximal end coiled in the left renal pelvis and the distal end coiled in the urinary bladder. 42 seconds of fluoroscopy time utilized. Electronically Signed by Aneudy Yo MD 07/07/2019 09:06 A
[2019-07-07 12:16] LABS: HEMATOCRIT 38.1 % (42.0-52.0); MEAN CORPUSCULAR HEMOGLOBIN 33.5 pg (27.0-33.0); MEAN CORPUSCULAR HGB CONC 34.1 g/dl (32.0-36.5); MEAN CORPUSCULAR VOLUME 98.2 fl (80.0-96.0); PLATELET COUNT, AUTOMATED 195 10^3/uL (150-450); RED BLOOD COUNT 3.88 10^6/uL (4.30-6.10); WHITE BLOOD COUNT 8.2 10^3/uL (4.0-10.0)
[2019-07-07] MEDS ORDERED: LEVO250T12 PO (12:22)
[2019-07-07 12:37] LABS: BLOOD UREA NITROGEN 29 MG/DL (7-18); CALCIUM LEVEL 9.4 MG/DL (8.8-10.2); CARBON DIOXIDE LEVEL 26 MEQ/L (21-32); CHLORIDE LEVEL 107 MEQ/L (98-107); GLOMERULAR FILTRATION RATE > 60.0 (>49); GLUCOSE, FASTING 255 MG/DL (70-100); POTASSIUM SERUM 4.4 MEQ/L (3.5-5.1); SODIUM LEVEL 139 MEQ/L (136-145)
--- NOTE | 2019-07-07 14:52 | DS.PDOC ---
Discharge Summary General Date of Admission Jul 05, 2019 at 11:00 Date of Discharge 07/07/19 Discharge Summary PROCEDURES PERFORMED DURING STAY: cystoscopy, bladder litholapaxy, stone extraction, left retrograde pyelogram, insertion of double J stent DISCHARGE DIAGNOSES: impacted left UPJ calculus prostatic hypertrophy obstructive uropathy HTN DM Parkinson's disease GERD COMPLICATIONS/CHIEF COMPLAINT: Diabetes Mellitus. HISTORY OF PRESENT ILLNESS: 68-year-old male with past medical history of hypert ension, diabetes mellitus insulin-dependent, renal calculi, schizophrenia, Parkinson's disease, GERD, presents from home with left flank pain for the past 2 days. Patient reports feeling well up until a couple days ago when he started having left flank pain with associated nausea and vomiting, lower abdominal pain as well. He denies any fever, chills or sweats. He reports having similar symptoms in the past when he had renal calculi which was treated with stent placement and subsequent removal. In the ED, he is found to have a UVJ stone with subsequent left sided moderate hydronephrosis. Urology was consulted by the emergency department, plan for surgical intervention. Patient has no complaints, denies any shortness of breath, chest pain, abdominal pain or diarrhea at this time. He reports significant improvement in the flank pain after receiving Toradol. HOSPITAL COURSE: 68-year-old male with multiple medical problems presents to the emergency department with obstructive uropathy and subsequent left sided moderate hydronephrosis. PLAN: 1. Obstructive uropathy. resolved - s/p procedural intervention with stent placement 2. Diabetes mellitus. continue home Rx 3. Hypertension. Continue home meds 4. Schizophrenia. Continue home Abilify. 5. Parkinson's disease. Continue home carbidopa/levodopa 6. GERD. Continue home PPI. DISCHARGE MEDICATIONS: Please see below. ALLERGIES: Please see below. PHYSICAL EXAMINATION ON DISCHARGE: VITAL SIGNS: Please see below. GENERAL: NAD, lying comfortably in bed, elderly HEENT: NC/AT, EOMI NECK: Supple CARDIOVASCULAR EXAMINATION: +S1S2, RRR RESPIRATORY EXAMINATION: CTA B/L ABDOMINAL EXAMINATION: soft, NT, +BS Ext: trace edema LABORATORY DATA: Please see below. ACTIVITY: [As tolerated]. DIET: 2 gram sodium, carb consistent DISPOSITION: Discharge home DISCHARGE INSTRUCTIONS: 1. PCP in 3-5 days 2. Urology as scheduled or within 3-7 days DISCHARGE CONDITION: [Stable]. TIME SPENT ON DISCHARGE: 35 minutes. Vital Signs/I&Os Vital Signs Date Time Temp Pulse Resp B/P (MAP) Pulse Ox O2 Delivery O2 Flow Rate FiO2 07/07/19 08:59 130/60 07/07/19 06:00 99.0 62 17 97 Room Air I&O- Last 24 Hours up to 6 AM 07/07/19 05:59 Intake Total 1285 ml Output Total 1725 ml Balance -440 ml Laboratory Data Labs 24H Laboratory Tests 2 07/06/19 16:27: Bedside Glucose (Misc Panel) 105 07/06/19 18:35: 07/06/19 18:37: Bedside Glucose (Misc Panel) 155H 07/06/19 22:35: Bedside Glucose (Misc Panel) 398H 07/07/19 03:27: Bedside Glucose (Misc Panel) 306H 07/07/19 06:27: Bedside Glucose (Misc Panel) 264H 07/07/19 11:37: Bedside Glucose (Misc Panel) 246H 07/07/19 11:53: Nucleated Red Blood Cells % (auto) 0.0, Anion Gap 6L, Glomerular Filtration Rate > 60.0, Calcium Level 9.4 CBC/BMP Laboratory Tests 07/07/19 11:53 FSBS Laboratory Tests Test 07/06/19 16:27 07/06/19 18:37 07/06/19 22:35 07/07/19 03:27 Range/Units Bedside Glucose (Misc Panel) 105 155 398 306 80-115 MG/DL Test 07/07/19 06:27 07/07/19 11:37 Range/Units Bedside Glucose (Misc Panel) 264 246 80-115 MG/DL Discharge Medications Scheduled Aripiprazole (Aripiprazole) 30 Mg Tab, 15 MG PO QPM, (Reported) Aspirin (Aspirin EC) 81 Mg Tab, 81 MG PO DAILY, (Reported) Atorvastatin Calcium (Atorvastatin Calcium) 80 Mg Tab, 40 MG PO DAILY, (Reported) Benazepril HCl (Benazepril HCl) 5 Mg Tablet, 5 MG PO DAILY, (Reported) Carbidopa/Levodopa (Carbidopa-Levodopa 25-100 Tab) 1 Tab Tab, 1 TAB PO TID, (Reported) Cholecalciferol (Vitamin D3) (Vitamin D3) 1,000 Unit Tab, 2,000 UNIT PO DAILY, (Reported) Insulin Aspart Prot/Insuln Asp (Novolog Mix 70-30 Flexpen Syrn) 100 Unit/1 Ml Insuln.pen, 38 UNITS SC BID, (Reported) Levofloxacin (Levofloxacin) 250 Mg Tablet, 250 MG PO DAILY@1800 Liraglutide (Victoza 2-Jacek) 18 Mg/3 Ml Inj, 1.8 MG SC DAILY, (Reported) Metformin HCl (Metformin HCl) 1,000 Mg Tab, 1,000 MG PO BID, (Reported) TAKEN WITH BREAKFAST AND DINNER Oxybutynin Chloride (Oxybutynin Chloride ER) 10 Mg Tab, 10 MG PO DAILY, (Reported) Pantoprazole Sodium (Pantoprazole Sodium) 40 Mg Tablet.dr, 40 MG PO QAM, (Reported) Tamsulosin HCl (Flomax) 0.4 Mg Cap, 0.4 MG PO DAILY, (Reported) Scheduled PRN Acetaminophen (Acetaminophen) 500 Mg Tablet, 1,000 MG PO Q8H PRN for PAIN, (Reported) Alprazolam (Alprazolam) 0.25 Mg Tab, 0.25 MG PO TID PRN for ANXIETY, (Reported) Miscellaneous Medications [Comments] , (Reported) PT IS EXTREMELY CONFUSED AND CAN ONLY REMEBER TAKING MEDS A COUPLE DAYS AGO. MEDICATION LIST WAS COMPILED BY CALLING AND GETING A LIST FROM THE 'S ADMINISTRATION Allergies Coded Allergies: Penicillins (Verified Adverse Reaction, Mild, upset stomach, 07/05/19) VERONIKA GUTIERREZ MD Jul 07, 2019 14:52
[2019-07-07 14:59] VITALS: BP 170/74
[2019-07-07] MEDS ORDERED: LevoFLOXacin 250 MG TABLET PO SCH (18:00)
== END 2019-07-07 15:12 | disposition home or self-care (01) ==
LOC: M ED 10:59 → M ED INP 11:00 → M MSPAV 16:50 → M PCU 20:07 → M MS4PR 07-06 22:00
PROVIDERS: ADMIT Internal Medicine; ATTEND Internal Medicine
DX: N20.1 Calculus of ureter (principal); N21.0 Calculus in bladder; N13.9 Obstructive and reflux uropathy, unspecified; N40.0 Benign prostatic hyperplasia without lower urinary tract symptoms; E11.9 Type 2 diabetes mellitus without complications; K21.9 Gastro-esophageal reflux disease without esophagitis; G20 Parkinson's disease; F20.9 Schizophrenia, unspecified; Z79.4 Long term (current) use of insulin; Z79.84 Long term (current) use of oral hypoglycemic drugs; Z79.82 Long term (current) use of aspirin; Z79.899 Other long term (current) drug therapy; Z88.0 Allergy status to penicillin
CPT/HCPCS: 36415; 51701; 52318; 52332; 71046; 74176; 74420; 80047; 80048; 80053; 80076; 81001; 82140; 82360; 83605; 83690; 83735; 85025; 85027; 88300; 96361; 96372; 96374; 96375; 96376; 97116; 97162; 97164; 99284; C1769; C2617; G0378; J0330; J0690; J1100; J1335; J1885; J2250; J2370; J2405; J2765; J3010; J3475; Q9961

== ENCOUNTER 2019-07-24 06:19 | Day surgery (SDC) | payer MEDICARE, MEDICAID ==
[~2019-07-24] VITALS: Ht 175.3 cm; Wt 87.5 kg
[~2019-07-24 06:19] MED LIST changes: -D 101000 PO; +LR 1,000 ML IV ONE; -OXYC1TAB23 PO; +ceFAZolin SOD 2 GM in IV 1 EA IV ONE
[2019-07-24] MEDS ORDERED: LIDOCAINE 2% INJ 100 MG/5 ML SDV (FOR ANES.) As Ordered ONE (06:56)
[2019-07-24] MEDS ORDERED: PROPOFOL 500 MG/50 ML VIAL As Ordered ONE (06:56)
[2019-07-24] MEDS ORDERED: dexameTHASONE 4 MG/ML 1ML VIAL (J1100) As Ordered ONE (07:01)
[2019-07-24] MEDS ORDERED: ONDANSETRON 4MG/2ML VIAL (J2405) As Ordered ONE (07:01)
--- NOTE | 2019-07-24 08:16 | REP ---
Clinical: Status post ESWL therapy. Technique: Single supine view of the abdomen and pelvis. Findings: Left ureteral stent in satisfactory position. Left intrarenal calculi measuring between 2 mm and 11 mm. Evaluation of the right kidney is limited due to overlying bowel gas. No bowel obstruction. Skeletal structures demonstrate degenerative changes. Atherosclerotic disease noted. Impression: Left intrarenal calculi measuring between 2-11 mm. Electronically Signed by Sheldon Raymond MD 07/24/2019 08:07 A
[2019-07-24] MEDS ORDERED: PERCOCET 5MG/325MG TAB As Ordered ONE (08:25)
[2019-07-24] MEDS ORDERED: OXYC1TAB23 PO (08:34)
[2019-07-24] MEDS ORDERED: FLOM0.4C39 PO (08:34)
[2019-07-24] MEDS ORDERED: PERCOCET 5MG/325MG TAB PO PRN (08:45)
[2019-07-24] MEDS ORDERED: PERCOCET 5MG/325MG TAB PO ONE (09:00)
--- NOTE | 2019-07-24 10:41 | RO ---
DATE OF PROCEDURE: 07/24/2019 PREPROCEDURE DIAGNOSIS: Left kidney stones. POSTPROCEDURE DIAGNOSIS: Left kidney stones. PROCEDURE: Left extracorporeal shock wave lithotripsy. SURGEON: David Vázquez MD RN GASTROENTEROLOGY: None. ANESTHESIA: Monitored anesthesia care (MAC). OPERATIVE INDICATIONS: This is [id number] male who recently underwent removal of a bladder stone and then placement of left ureteral stent for obstructing 8-9 mm left ureteropelvic junction stone. He was brought to the operating room today for treatment of the ureteropelvic junction (UPJ) stone. DESCRIPTION OF PROCEDURE: The patient was brought to the operating room and monitored anesthesia care (MAC) was administered. Prophylactic antibiotics were infused. He was then placed in supine position in preparation first for a left-sided extracorporeal shock wave lithotripsy. Fluoroscopy was utilized to monitor stone position and fragmentation throughout the procedure. Of note, the patient's stone had been moved into the left renal pelvis when a stent was placed. Shock waves were then administered to the 8 mm stone ungated. There were no arrhythmias. The stone did appear to fragment well. Of note, the patient did have a smaller stone, which was approximately 3-4 mm, that we did not treat as all the shocks were given to the bigger stone. After 2500 shocks, the procedure was concluded. The patient was then awakened from anesthesia and transported to the recovery room in stable condition. ESTIMATED BLOOD LOSS: Zero mL. COMPLICATIONS: None. SPECIMENS: None. PLAN: The patient will followup in clinic in about 3-4 weeks for cystoscopy and possible stent removal. We will get a KUB prior to that to see if he has adequately passed the stone fragments. If not, we might have to bring back for another extracorporeal shock wave lithotripsy.
[2019-07-24] MEDS ORDERED: BISACODYL 10 MG SUPP PR ONE (14:00)
[2019-07-24 14:05] VITALS: BP 168/77
[2019-07-25] MEDS ORDERED: FLOM0.4C39 PO (17:58)
[2019-07-25] MEDS ORDERED: OXYC1TAB23 PO (17:58)
[2019-07-25] MEDS ORDERED: D 101000 PO (17:58)
== END 2019-07-24 17:10 | disposition home or self-care (01) ==
LOC: M SDC 06:19
PROVIDERS: ATTEND Urology
DX: N20.0 Calculus of kidney (principal); I10 Essential (primary) hypertension; E78.5 Hyperlipidemia, unspecified; E10.9 Type 1 diabetes mellitus without complications; Z79.4 Long term (current) use of insulin; Z79.84 Long term (current) use of oral hypoglycemic drugs; Z79.82 Long term (current) use of aspirin; Z79.899 Other long term (current) drug therapy; Z88.0 Allergy status to penicillin; Z87.891 Personal history of nicotine dependence
CPT/HCPCS: 50590; 74018; J0690

== ENCOUNTER → 2019-07-24 | Outpatient (CLI) | payer MEDICARE, MEDICAID ==
[~2019-07-24] MED LIST changes: +ACET-683 PO; +ACET650T15 PO; +COMMENTS; +D 101000 PO; +JARD1TAB3 PO; +LEVO250T12 PO; +OXYC1TAB23 PO
== END ==
LOC: M RAD 06:02
PROVIDERS: ATTEND Urology
DX: N20.0 Calculus of kidney (principal)

== ENCOUNTER 2019-07-25 12:40 | Inpatient (IN) | payer OTHER, MEDICARE, MEDICAID ==
[~2019-07-25 12:40] MED LIST changes: -LR 1,000 ML IV ONE; +OXYC1TAB23 PO; -ceFAZolin SOD 2 GM in IV 1 EA IV ONE
[2019-07-25] MEDS ORDERED: NS 1,000 ML IV ONE ×2 (13:15→15:00)
[2019-07-25 13:41] LABS: BASO % 0.4 % (0.0-1.0); EOS # 0.3 10^3/uL (0.0-0.5); EOS % 2.7 % (0.0-3.0); HEMATOCRIT 39.6 % (42.0-52.0); HEMOGLOBIN 13.2 g/dl (13.5-17.5); LYMPH # 0.9 10^3/uL (1.5-5.0); LYMPH % 9.5 % (24.0-44.0); MEAN CORPUSCULAR HEMOGLOBIN 32.9 pg (27.0-33.0); MEAN CORPUSCULAR HGB CONC 33.3 g/dl (32.0-36.5); MEAN CORPUSCULAR VOLUME 98.8 fl (80.0-96.0); MONO # 0.8 10^3/uL (0.0-0.8); MONO % 8.8 % (0.0-5.0); NEUTROPHILS # 7.2 10^3/uL (1.5-8.5); NEUTROPHILS % 78.3 % (36.0-66.0); PLATELET COUNT, AUTOMATED 215 10^3/uL (150-450); RED BLOOD COUNT 4.01 10^6/uL (4.30-6.10); WHITE BLOOD COUNT 9.2 10^3/uL (4.0-10.0)
--- NOTE | 2019-07-25 13:45 | REP ---
Clinical: Hypoglycemia . Comparison: 07/05/2019 . Findings: The mediastinum and cardiac silhouette are stable and within normal limits for portable technique. The lung sorto are clear without acute consolidation, effusion, or pneumothorax. Skeletal structures are intact. Impression: No acute cardiopulmonary process appreciated. Electronically Signed by Sheldon Raymond MD 07/25/2019 01:37 P
[2019-07-25 14:07] LABS: INR 1.22; PROTHROMBIN TIME 15.1 SECONDS (11.8-14.0)
[2019-07-25 14:08] LABS: PARTIAL THROMBOPLASTIN TIME 27.7 SECONDS (25.0-38.4)
[2019-07-25 14:14] LABS: ALBUMIN 3.7 GM/DL (3.2-5.2); ALT/SGPT 14 U/L (12-78); BILIRUBIN,DIRECT 0.2 MG/DL (0.0-0.2); BILIRUBIN,TOTAL 0.8 MG/DL (0.2-1.0); BLOOD UREA NITROGEN 21 MG/DL (7-18); CALCIUM LEVEL 9.2 MG/DL (8.8-10.2); CARBON DIOXIDE LEVEL 26 MEQ/L (21-32); CHLORIDE LEVEL 108 MEQ/L (98-107); CK-MB VALUE MASS 2.2 NG/ML (<3.6); CPK CREATINE PHOSPHOKINASE 84 U/L (39-308); CREATININE FOR GFR 1.36 MG/DL (0.70-1.30); GLOMERULAR FILTRATION RATE 55.6 (>49); GLUCOSE, FASTING 203 MG/DL (70-100); LIPASE 73 U/L (73-393); MB/CK RELATIVE INDEX 2.62 (< OR =4); POTASSIUM SERUM 4.5 MEQ/L (3.5-5.1); SODIUM LEVEL 141 MEQ/L (136-145); TOTAL PROTEIN 6.5 GM/DL (6.4-8.2); TROPONIN I < 0.02 NG/ML (< 0.10)
[2019-07-25 14:30] LABS: BILIRUBIN, URINE MANUAL OBSCURED (NEGATIVE); GLUCOSE, URINE (UA) MANUAL 4+(1000 MG/DL) mg/dL (NEGATIVE); KETONE, URINE MANUAL OBSCURED mg/dL (NEGATIVE); UROBILINOGEN, URINE MANUAL OBSCURED mg/dl (NORMAL)
[2019-07-25 15:16] LABS: BACTERIA, URINE SMALL AMOUNT; HYALINE CAST, URINE NONE SEEN /lpf (0-1); RBC, URINE TNTC /hpf (0-3); SQUAMOUS EPITHELIAL CELL URINE SMALL AMOUNT /hpf (SMALL AMT)
[2019-07-25] MEDS ORDERED: OXYC1TAB23 PO (17:58)
[2019-07-25] MEDS ORDERED: FLOM0.4C39 PO (17:58)
[2019-07-25] MEDS ORDERED: D 101000 PO (17:58)
[2019-07-25] MEDS: NS 1,000 ML IV SCH (17:59)
[2019-07-25] MEDS ORDERED: cefTRIAXone SOD 1 GM in D5W MINI-BAG PLUS 50 ML IV SCH (18:00)
[2019-07-25] MEDS ORDERED: GLUCOSE 4 GM CHEW TABLET PO PRN (18:30)
[2019-07-25] MEDS ORDERED: DEXTROSE 50% 50 ML SYRINGE IV PRN (18:30)
[2019-07-25] MEDS ORDERED: GLUCAGON FOR INJ 1 MG VIAL (J1610) SC PRN (18:30)
--- NOTE | 2019-07-25 18:37 | REP ---
SUPINE ABDOMEN: 07/25/2019. Comparison: KUB 07/24/2019, retrograde pyelogram 07/06/2019, CT 07/05/2019. Clinical history: Status post ESWL. Evaluate for stones. The patient has left internal ureteral stent. There is a double pigtail stent coiled proximally in the renal pelvis and distally in the bladder. The 12 mm stone in the lower pole right kidney on yesterday's study with two or three adjacent smaller stones are now fragmented. I do not see definite stones along the course of that left ureteral stent. These fragmented calcific bodies are in that lower pole collecting system. There are heavy vascular calcifications of the iliac vessels. Degenerative changes are seen throughout the spine. There is moderate stool in the right and left colon. Impression: 1. Double pigtail stent in the left ureter, coiled proximally in the renal pelvis and distally in the bladder. The lower pole calculi seen on yesterday's radiograph have fragmented since ESWL. I cannot see definite stones along the course of the stent. Electronically Signed by Mohinder Sauer MD 07/25/2019 08:03 P
--- NOTE | 2019-07-25 19:26 | HPEPDOC ---
General Date of Admission Jul 25, 2019 at 17:48 Date of Service: Jul 25, 2019 Other Providers Genev[facility] at [facility] Attending Physician: CHARLES ROSA MD Chief Complaint The patient is a 68-year-old male admitted with a reason for visit of Hypotension,Lactic Acidosis. History of Present Illness HPI: 68-year-old male with PMH of BPH and obstructive uropathy is brought in by his home nurse Fermin for hypoglycemia and hypotension. The exact numbers are unclear, but upon ER arrival, fingerstick within 200s and BP 80/50s. Recently underwent a left ureteral stent a few weeks ago with Dr. Vázquez, and reports he has had light red urine in his Fields ever since. He underwent left lithotripsy yesterday as well, reports he had no issues until today, when his output is now completely bloody and dark red with some intermittent bladder pains. He denies any fever, chills, nausea, vomiting, any other blood loss. He does endorse lightheadedness and dizziness. In the ER, he received 2 L NS bolus, to which he responded well. He was also found to have an AK I and lactic acidosis, and will be admitted. The ER spoke with Urologist Dr. Toure, who will see patient. PMH: Parkinson's dementia IDDM 2 GERD Diastolic CHF BPH Obstructive uropathy Hypertension Past Surgical Hx: Lithotripsy and ureteral stent Back wound debridement Appendectomy Family Hx: Patient is unsure Social Hx: Limited historian due to baseline dementia. 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 Admits lightheadedness GI: Denies nausea, vomiting, abdominal pain, melena, hematochezia : Denies dysuria. Admits chronic retention and kidney stones, and recent hematuria MSK: Denies new pains or weakness Neurologic: Denies new numbness/tingling PHYSICAL: General exam: A&Ox3, NAD, resting comfortably HEENT: NCAT, EOMI, neck supple, anicteric sclera, dry mucous membranes Cardiac: RRR, normal S1 & S2, no murmurs Respiratory: CTAB, good air exchange, no w/r/r Abdomen: soft, NT, ND, normoactive bowel sounds : Fields in place with dark red bloody output without visible clots. No pelvic tenderness or masses. No CVA or spinal tenderness Extremity: 2+ radial and dorsalis pedis pulses, no edema or calf tenderness Skin: [place], warm, dry, no visible rash Msk: strength intact & equal x4, normal tone Neuro: normal speech, no focal deficits. Limited memory due to baseline dementia Psych: Normal mood and affect LABORATORY DATA, MICROBIOLOGY: Please see below. IMAGING STUDIES: * CXR: No acute cardiopulmonary process appreciated. * KUB: Double pigtail stent in the left ureter, coiled proximally in the renal pelvis and distally in the bladder. The lower pole calculi seen on yesterday's radiograph have fragmented since ESWL. I cannot see definite stones along the course of the stent. ASSESSMENT AND PLAN: This is a 68-year-old male with history of nephrolithiasis with obstructive uropathy BPH who recently underwent left ureteral stent few weeks ago Dr. Vázquez as well as left lithotripsy yesterday was found to be hypoglycemic and hypotensive at home and brought in, as well as worsening hematuria. Found on admission to be hypertensive, and AK I and lactic acidosis. 1. Hematuria: Likely 2/2 recent intervention. Urology consulted, appreciate Dr. Toure's input. Patient has a Fields in place with dark bloody output and without any other pelvic complaints. H&H is currently stable-monitor. Home aspirin on hold. May also be 2/2 UTI-positive UA-urine culture pending. Will start on ceftriaxone and await cultures. Oxybutynin on hold in light of possible UTI. 2. Hypotension: Responded well to fluids in ER. Continue standing fluids at 100 mL, may increase as needed. Has a history of diastolic CHF, however striae on exam. Hold home Benazepril. 3. Lactic acidosis: Likely 2/2 hypotension, recent surgery yesterday, and possible UTI. He does not appear septic: No leukocytosis, tachycardia, or fever. Repeat lactic acid is pending. Continue IV fluids and antibiotics for possible UTI. 4. Obstructive uropathy: Patient has a Fields in place and recent stent and lithotripsy. Normally follows with Dr. Vázquez. Continue home Flomax. 5. LUCY: Baseline CR around 1. Currently 1.36. Likely 2/2 recent urologic intervention and possible active UTI. Continue IV fluids and ceftriaxone and hold nephrotoxic drugs. 6. IDDM 2: Insulin sliding scale inpatient replacing home NovoLog, Victoza, metformin, Jardiance 7. Hyperlipidemia: Continue statin, aspirin on hold given hematuria 8. Anxiety: Continue home Xanax when necessary 9. GERD: Continue Protonix 10. Parkinson's dementia: Patient is a good historian with mild Memory. Continue Home Carbidopa Levodopa, Aripiprazole. Chronic diastolic CHF: Noted per 2018 echo. Appears dry on exam. Monitor volume status with IV fluids DVT prophylaxis: Mechanical given active bleed DISPOSITION: Admit to hospital, pending clinical improvement, Urology & PT. Home Medications Scheduled Aripiprazole (Aripiprazole) 30 Mg Tab, 15 MG PO QPM, (Reported) Aspirin (Aspirin EC) 81 Mg Tab, 81 MG PO DAILY, (Reported) Atorvastatin Calcium (Atorvastatin Calcium) 80 Mg Tab, 40 MG PO DAILY, (Reported) Benazepril HCl (Benazepril HCl) 5 Mg Tablet, 5 MG PO DAILY, (Reported) Carbidopa/Levodopa (Carbidopa-Levodopa 25-100 Tab) 1 Tab Tab, 1 TAB PO TID, (Reported) Cholecalciferol (Vitamin D3) (Vitamin D3) 1,000 Unit Capsule, 2,000 UNIT PO DAILY, (Reported) Empagliflozin (Jardiance) 25 Mg Tablet, 12.5 MG PO DAILY, (Reported) Insulin Aspart Prot/Insuln Asp (Novolog Mix 70-30 Flexpen Syrn) 100 Unit/1 Ml Insuln.pen, 38 UNITS SC BID, (Reported) Liraglutide (Victoza 2-Jacek) 18 Mg/3 Ml Inj, 1.8 MG SC DAILY, (Reported) Metformin HCl (Metformin HCl) 1,000 Mg Tab, 1,000 MG PO BID, (Reported) TAKEN WITH BREAKFAST AND DINNER Oxybutynin Chloride (Oxybutynin Chloride ER) 10 Mg Tab, 10 MG PO DAILY, (Reported) Pantoprazole Sodium (Pantoprazole Sodium) 40 Mg Tablet.dr, 40 MG PO QAM, (Reported) Tamsulosin HCl (Flomax) 0.4 Mg Capsule, 0.4 MG PO DAILY, (Reported) Scheduled PRN Acetaminophen (Acetaminophen) 500 Mg Tablet, 1,000 MG PO Q8H PRN for PAIN, (Reported) Alprazolam (Alprazolam) 0.25 Mg Tab, 0.25 MG PO TID PRN for ANXIETY, (Reported) Oxycodone HCl/Acetaminophen (Oxycodone-Acetaminophen 5-325) 1 Each Tablet, 1 TAB PO Q6H PRN for PAIN, (Reported) Allergies Coded Allergies: Penicillins (Verified Adverse Reaction, Mild, upset stomach, 07/05/19) A-FIB/CHADSVASC A-FIB History Current/History of A-Fib/PAF?: No Current PO Anticoag Therapy: No Vital Signs Vital Signs Date Time Temp Pulse Resp B/P (MAP) Pulse Ox O2 Delivery O2 Flow Rate FiO2 07/25/19 18:31 72 97 Room Air 07/25/19 18:30 97.2 18 107/54 (71) Laboratory Data Labs 24H Laboratory Tests 2 07/25/19 13:25: Immature Granulocyte % (Auto) 0.3, Neutrophils (%) (Auto) 78.3H, Lymphocytes (%) (Auto) 9.5L, Monocytes (%) (Auto) 8.8H, Eosinophils (%) (Auto) 2.7, Basophils (%) (Auto) 0.4, Neutrophils # (Auto) 7.2, Lymphocytes # (Auto) 0.9L, Monocytes # (Auto) 0.8, Eosinophils # (Auto) 0.3, Basophils # (Auto) 0.0, Nucleated Red Blo od Cells % (auto) 0.0, Prothrombin Time 15.1H, Prothromb Time International Ratio 1.22, Activated Partial Thromboplast Time 27.7, Anion Gap 7L, Glomerular Filtration Rate 55.6, Lactic Acid Level 3.1*H, Calcium Level 9.2, Total Bilirubin 0.8, Direct Bilirubin 0.2, Aspartate Amino Transf (AST/SGOT) 12, Alanine Aminotransferase (ALT/SGPT) 14, Alkaline Phosphatase 61, Total Creatine Kinase 84, Creatine Kinase MB 2.2, Creatine Kinase MB Relative Index 2.62, Troponin I < 0.02, Total Protein 6.5, Albumin 3.7, Albumin/Globulin Ratio 1.32, Lipase 73 07/25/19 13:42: Urine Color (HECTOR) REDH, Urine Appearance (HECTOR) CLOUDYH, Urine pH (HECTOR) 5.0, Urine Specific [place] (HECTOR) 1.015, Urine Protein 3+H, Bedside Urine Glucose (UA) 4+(1000 MG/DL)H, Bedside Urine Ketones (LAB) OBSCUREDH, Bedside Urine Blood POSITIVEH, Bedside Urine Nitrite (LAB) POSITIVEH, Bedside Urine Bilirubin (LAB) OBSCUREDH, Bedside Urine Urobilinogen (LAB) OBSCUREDH, Bedside Urine Leukocyte Esterase (L POSITIVEH, Urine Sediment Examination PERFORMED, Urine RBC TNTCH, Urine WBC 20-30H, Urine Squamous Epithelial Cells SMALL AMOUNT, Urine Bacteria SMALL AMOUNTH, Urine Hyaline Casts NONE SEEN CBC/BMP Laboratory Tests 07/25/19 13:25 Microbiology Microbiology 07/25/19 Urine Culture, Received Pending 07/25/19 Blood Culture, Received Pending 07/25/19 Blood Culture, Received Pending Plan / VTE VTE Prophylaxis Ordered?: Yes GME ATTESTATION GME ATTESTATION My faculty preceptor for this patient encounter was physically present during the encounter and was fully available. All aspects of the patient interview, examination, medical decision making process, and medical care plan development were reviewed and approved by the faculty preceptor. The faculty preceptor is aware and concurs with the plan as stated in the body of this note and will attest to such by his/her cosignature. ATTENDING NOTE I, Charles Rosa, have independently examined this patient and performed my own physical exam, as well as reviewed the documentation and edited where necessary. I have discussed in detail with the resident / student the findings and plan of treatment as documented by the resident / student and edited their note. I agree with their findings and treatment plan and have edited their documentation. I will continue to follow the patient during this hospital stay. ZENA GREY DO Jul 25, 2019 19:26 CHARLES ROSA MD Jul 26, 2019 15:24
[2019-07-25 19:30] VITALS: BP_SYST 176; BP_SYST 179; BP_DIAS 73; BP_DIAS 76
--- NOTE | 2019-07-25 19:31 | REPVR ---
PROCEDURE INFORMATION: Exam: US Retroperitoneal Limited, Kidneys Exam date and time: 07/25/2019 6:37 PM Age: 68 years old Clinical history: Other: Hematuria; Prior surgery; Surgery date: Post-operative (0-2 days); Surgery type: Lithotripsy w/ stent placement? Double j; Additional info: Recent lithotripsy, hematuria TECHNIQUE: Imaging protocol: Real-time ultrasound of the retroperitoneum with image documentation. Examination was focused on the kidneys. COMPARISON: CT ABD PELVIS W/O CONTRAST 07/05/2019 12:08 PM FINDINGS: Right kidney: Right kidney measures 10.1 x 5.2 x 5.4 cm. 5 mm echogenic shadowing focus in the upper pole likely represents a nonobstructing calculus. Normal parenchyma. No hydronephrosis. Left kidney: Left kidney measures 10.8 x 4.5 x 6.3 cm. 10 mm shadowing echogenic focus in the lower pole consistent with a nonobstructive calculus. Normal parenchyma. No hydronephrosis. Proximal portion no double J stent not clearly visualized within the left kidney. Bladder: Evaluation of the bladder demonstrates a Fields catheter in place. Also noted is the distal portion of the stent within the left posterior urinary bladder. IMPRESSION: 1. Bilateral nonobstructive renal calculi. 2. Status post stent placement in the left collecting system with a bladder component identified however the proximal component within the left kidney is not visualized clearly. Electronically signed by: Thien Wilks On 07/25/2019 19:30:48 PM
--- NOTE | 2019-07-25 20:06 | ECGEPIP ---
[facility] - ED Test Date: 2019-07-25 Pat Name: NATHANIEL DIEHL Department: Room: - Gender: Male [employer]: TC : 1950 Requested By: KRISTAL Milian Order Number: [id number] Reading MD: Shirley Chatman Measurements Intervals [place] Rate: 82 P: 13 PA: 155 QRS: 39 QRSD: 96 T: 123 QT: 383 QTc: 450 Interpretive Statements SINUS RHYTHM POSSIBLE LEFT ATRIAL ENLARGEMENT NONSPECIFIC ST & T-WAVE ABNORMALITY SIMILAR 01/06/19 Electronically Signed on 07-25-2019 20:05:52 EST by Shirley Chatman
[2019-07-25] MEDS: SINEMET 25-100 MG TAB PO SCH (20:59)
[2019-07-25] MEDS: HumaLOG INSULIN (NovoLOG) PER UNIT SC SCH (20:59)
[2019-07-25] MEDS: LEVEMIR (INSULIN DETEMIR) 1 UNITS/0.01ML SC SCH (21:00)
[2019-07-25] MEDS: ARIPiprazole 15 MG TAB (AbiLIFY) PO SCH (21:26)
[2019-07-26] VITALS (7 sets, daily range): BP systolic 108–166; BP diastolic 54–86
[2019-07-26] MEDS: ALPRAZolam 0.25 MG TAB PO PRN ×2 (04:49→15:10)
[2019-07-26] MEDS: NS 1,000 ML IV SCH (04:49)
[2019-07-26 05:25] LABS: HEMATOCRIT 38.4 % (42.0-52.0); HEMOGLOBIN 12.9 g/dl (13.5-17.5); MEAN CORPUSCULAR HGB CONC 33.6 g/dl (32.0-36.5); MEAN CORPUSCULAR VOLUME 98.2 fl (80.0-96.0); PLATELET COUNT, AUTOMATED 186 10^3/uL (150-450); RED BLOOD COUNT 3.91 10^6/uL (4.30-6.10); WHITE BLOOD COUNT 9.1 10^3/uL (4.0-10.0)
[2019-07-26 05:46] LABS: BLOOD UREA NITROGEN 16 MG/DL (7-18); CALCIUM LEVEL 8.8 MG/DL (8.8-10.2); CARBON DIOXIDE LEVEL 27 MEQ/L (21-32); CHLORIDE LEVEL 109 MEQ/L (98-107); CREATININE FOR GFR 0.96 MG/DL (0.70-1.30); GLOMERULAR FILTRATION RATE > 60.0 (>49); GLUCOSE, FASTING 155 MG/DL (70-100); SODIUM LEVEL 141 MEQ/L (136-145)
[2019-07-26] MEDS: HumaLOG INSULIN (NovoLOG) PER UNIT SC SCH ×4 (09:04→21:00)
[2019-07-26] MEDS: SINEMET 25-100 MG TAB PO SCH ×3 (09:05→21:04)
[2019-07-26] MEDS: TAMSULOSIN 0.4 MG CAP PO SCH (09:05)
[2019-07-26] MEDS: ATORVASTATIN 20 MG TAB PO SCH (09:05)
[2019-07-26] MEDS: PANTOPRAZOLE 40MG TAB (PROTONIX) PO SCH (09:05)
[2019-07-26] MEDS: LEVEMIR (INSULIN DETEMIR) 1 UNITS/0.01ML SC SCH ×2 (09:05→21:04)
--- NOTE | 2019-07-26 13:21 | IPNPDOC ---
Text Note Date of Service The patient was seen on 07/26/19. NOTE S: Pt examined at bedside. Has no complaints and is otherwise doing well. No issues overnight. Continues to drain dark bloody urine into Fields catheter with intemrittent pelvic spasms. No f/c/n/v/abd pain/cp/sob. PE: Vitals: see below General exam: A&Ox3, NAD, resting comfortably HEENT: NCAT, EOMI, neck supple, MMM Cardiac: RRR, normal S1 & S2, no murmurs Respiratory: CTAB, good air exchange, no w/r/r Abdomen: soft, NT, ND, normoactive bowel sounds : Fields continuing to drain dark red bloody output without visible clots. Mild pelvic tenderness. No abd masses palpable or CVA or spinal tenderness Extremity: 2+ radial and dorsalis pedis pulses, no edema or calf tenderness Skin: [place], warm, dry, no visible rash Neuro: normal speech, no focal deficits. Limited memory due to baseline dementia. Resting tremor & masked facies congruent with his Parkinson's A/P: 1. Hematuria: continues into today. Likely 2/2 recent left ureteral stent placement. H&H is relatively stable with pt only complaining of mild intermittent pelvic pains. Patient to be seen by Dr. Toure, normally follows with Dr. Vázquez. Unlikely from UTI given negative urine culture. Will dc abx & IVF and monitor with Fields in place. Resume home ASA, Oxybutinin on hold until he is assessed by Urology. 2. Hypotension with baseline HTN: resolved with IVF-will discontinue given pt is actually now bck to being hypertensive. Resume home Benazepril with hold jimmie eters. 3. Lactic acidosis: resolved with IVF. Was likely 2/2 hypotension & recent surgery. 4. LUCY: Resolved with IVF and holding nephrotoxins. Likely 2/2 recent urologic intervention and hypotension. Monitor 5. Obstructive uropathy: Patient has a Fields in place and recent stent and lithotripsy. Normally follows with Dr. Vázquez. Continue home Flomax. 6. Parkinson's dementia: Patient is a good historian with mild memory deficits. Continue Home Carbidopa Levodopa, Aripiprazole. Lives alone and has home nurse visiting 2x/week. Will consult PFS for further assistance for home care and othe r alternatives. 7. Hyperlipidemia: Continue statin. Aspirin resumed 8. Anxiety: Continue home Xanax when necessary 9. GERD: Continue Protonix 10. IDDM 2: Insulin sliding scale inpatient replacing home NovoLog, Victoza, metformin, Jardiance 11. Chronic diastolic CHF: Noted per 2018 echo. No signs of decompensation DVT prophylaxis: Mechanical given active hematuria DISPOSITION: pending clinical improvement, Urology, PT, PFS. VS,Fishbone, I+O VS, Fishbone, I+O Laboratory Tests 07/25/19 13:25 07/26/19 05:10 Vital Signs Date Time Temp Pulse Resp B/P (MAP) Pulse Ox O2 Delivery O2 Flow Rate FiO2 07/26/19 11:27 98.3 80 18 166/84 (111) 95 Room Air I&O- Last 24 Hours up to 6 AM 07/26/19 06:00 Intake Total 3735 ml Output Total 2200 ml Balance 1535 ml GME ATTESTATION GME ATTESTATION My faculty preceptor for this patient encounter was physically present during the encounter and was fully available. All aspects of the patient interview, examination, medical decision making process, and medical care plan development were reviewed and approved by the faculty preceptor. The faculty preceptor is aware and concurs with the plan as stated in the body of this note and will attest to such by his/her cosignature. ATTENDING NOTE I, Charles Rosa, have independently examined this patient and performed my own physical exam, as well as reviewed the documentation and edited where necessary. I have discussed in detail with the resident / student the findings and plan of treatment as documented by the resident / student and edited their note. I agree with their findings and treatment plan and have edited their documentation. I will continue to follow the patient during this hospital stay. ZENA GREY DO Jul 26, 2019 13:21 CHARLES ROSA MD Jul 26, 2019 15:29
[2019-07-26] MEDS: BENAZEPRIL 5 MG TAB PO SCH (15:10)
[2019-07-26] MEDS: ARIPiprazole 15 MG TAB (AbiLIFY) PO SCH (21:04)
[2019-07-27 04:00] VITALS: BP 117/58
[2019-07-27] MEDS: ALPRAZolam 0.25 MG TAB PO PRN ×2 (05:25→13:41)
[2019-07-27 05:54] LABS: HEMATOCRIT 41.8 % (42.0-52.0); HEMOGLOBIN 13.6 g/dl (13.5-17.5); MEAN CORPUSCULAR HEMOGLOBIN 32.7 pg (27.0-33.0); MEAN CORPUSCULAR HGB CONC 32.5 g/dl (32.0-36.5); MEAN CORPUSCULAR VOLUME 100.5 fl (80.0-96.0); PLATELET COUNT, AUTOMATED 195 10^3/uL (150-450); RED BLOOD COUNT 4.16 10^6/uL (4.30-6.10); WHITE BLOOD COUNT 8.3 10^3/uL (4.0-10.0)
[2019-07-27 06:20] LABS: BLOOD UREA NITROGEN 13 MG/DL (7-18); CALCIUM LEVEL 8.8 MG/DL (8.8-10.2); CARBON DIOXIDE LEVEL 28 MEQ/L (21-32); CHLORIDE LEVEL 109 MEQ/L (98-107); CREATININE FOR GFR 0.95 MG/DL (0.70-1.30); GLOMERULAR FILTRATION RATE > 60.0 (>49); GLUCOSE, FASTING 155 MG/DL (70-100); POTASSIUM SERUM 4.4 MEQ/L (3.5-5.1); SODIUM LEVEL 142 MEQ/L (136-145)
[2019-07-27] MEDS: ASPIRIN 81 MG ENTERIC TAB PO SCH (08:02)
[2019-07-27] MEDS: PANTOPRAZOLE 40MG TAB (PROTONIX) PO SCH (08:02)
[2019-07-27] MEDS: HumaLOG INSULIN (NovoLOG) PER UNIT SC SCH ×4 (08:02→21:00)
[2019-07-27] MEDS: LEVEMIR (INSULIN DETEMIR) 1 UNITS/0.01ML SC SCH ×2 (08:02→22:00)
[2019-07-27] MEDS: ATORVASTATIN 20 MG TAB PO SCH (08:02)
[2019-07-27] MEDS: TAMSULOSIN 0.4 MG CAP PO SCH (08:02)
[2019-07-27] MEDS: BENAZEPRIL 5 MG TAB PO SCH (08:05)
[2019-07-27] MEDS: SINEMET 25-100 MG TAB PO SCH ×3 (08:05→22:00)
--- NOTE | 2019-07-27 10:32 | IPNPDOC ---
Text Note Date of Service The patient was seen on 07/27/19. NOTE Subjective: Patient was seen and examined at the bedside. Currently, patient reports that he has not had any events overnight. Denies chest pain, shortness of breath, palpitations. Denies nausea, vomiting, abdominal pain, diarrhea. Patient is a Fields catheter in place that continues to drain blood-tinged urine. Patient has worked with physical therapy, however, has not yet clear. Objective: Vitals (See below) General: Lying in bed, no acute distress, comfortable, Awake / Alert HEENT: NC, AT CVS: RRR, +S1S2 Lungs: Fair air entry b/l, -w/r/r Abdomen: Soft, ND, NT Extremities: - Edema, - Calf tenderness Assessment and plan: Hematuria - likely 2/2 recent left ureteral stent placement and lithotripsy - Patient remains hemodynamically stable - Hemoglobin has remained stable; has not required any transfusions - Urine analysis/urine culture are negative for infection - s/p Ceftriaxone - s/p IV fluid hydration - Urology, Dr. Toure has been consultation s/p Hypotension - likely 2/2 hypovolemia s/p Lactic acidosis - likely 2/2 hypovolemia s/p LUCY - likely 2/2 hypotension / hypovolemia - Has resolved with IVF and holding nephrotoxins Obstructive uropathy - Patient has a Fields in place and recent stent and lithotripsy - c/w Tamsulosin - Follows with Dr. Vázquez Parkinson's - c/w Carbidopa / Levodopa - Patient lives alone - c/w Physical therapy; will likely need further assistance in the outpatient setting; possible consideration of assisted living Chronic diastolic CHF - Currently no evidence of fluid overload - Patient does not take any diuretics as an outpatient IDDM2 - c/w ISS and Levemir DLP - c/w Atorvastatin and ASA 81 Anxiety / Depression - c/w Alprazolam and Aripiprazole GERD - c/w Protonix DVT prophylaxis - c/w KAYLEE / Sequentials (re: Hematuria) Disposition: - Physical therapy has not yet cleared patient - We'll have PFS consultation for potential placement VS,Fishbone, I+O VS, Fishbone, I+O Laboratory Tests 07/27/19 05:21 Vital Signs Date Time Temp Pulse Resp B/P (MAP) Pulse Ox O2 Delivery O2 Flow Rate FiO2 07/27/19 08:05 122/72 07/27/19 04:00 98.6 86 16 94 Room Air I&O- Last 24 Hours up to 6 AM 07/27/19 06:00 Intake Total 860 ml Output Total 2750 ml Balance -1890 ml CHRISTY HURD MD Jul 27, 2019 10:32
[2019-07-27 12:00] VITALS: BP 152/67
[2019-07-27] MEDS: PERCOCET 5MG/325MG TAB PO PRN (12:47)
[2019-07-27 22:00] VITALS: BP 137/58
[2019-07-27] MEDS: ARIPiprazole 15 MG TAB (AbiLIFY) PO SCH (22:23)
[2019-07-28] MEDS: ALPRAZolam 0.25 MG TAB PO PRN ×2 (04:55→15:19)
[2019-07-28 06:00] VITALS: BP 139/65
[2019-07-28 06:05] LABS: HEMATOCRIT 41.7 % (42.0-52.0); MEAN CORPUSCULAR HEMOGLOBIN 33.3 pg (27.0-33.0); MEAN CORPUSCULAR HGB CONC 33.6 g/dl (32.0-36.5); PLATELET COUNT, AUTOMATED 189 10^3/uL (150-450); RED BLOOD COUNT 4.21 10^6/uL (4.30-6.10); WHITE BLOOD COUNT 7.1 10^3/uL (4.0-10.0)
[2019-07-28 06:47] LABS: BLOOD UREA NITROGEN 14 MG/DL (7-18); CALCIUM LEVEL 8.7 MG/DL (8.8-10.2); CARBON DIOXIDE LEVEL 22 MEQ/L (21-32); CHLORIDE LEVEL 112 MEQ/L (98-107); CREATININE FOR GFR 0.84 MG/DL (0.70-1.30); GLOMERULAR FILTRATION RATE > 60.0 (>49); GLUCOSE, FASTING 103 MG/DL (70-100); POTASSIUM SERUM 4.2 MEQ/L (3.5-5.1); SODIUM LEVEL 140 MEQ/L (136-145)
[2019-07-28] MEDS: HumaLOG INSULIN (NovoLOG) PER UNIT SC SCH ×4 (07:30→20:28)
[2019-07-28] MEDS: ATORVASTATIN 20 MG TAB PO SCH (08:22)
[2019-07-28] MEDS: PANTOPRAZOLE 40MG TAB (PROTONIX) PO SCH (08:22)
[2019-07-28] MEDS: TAMSULOSIN 0.4 MG CAP PO SCH (08:22)
[2019-07-28] MEDS: BENAZEPRIL 5 MG TAB PO SCH (08:27)
[2019-07-28] MEDS: SINEMET 25-100 MG TAB PO SCH ×3 (08:28→21:05)
[2019-07-28] MEDS: ASPIRIN 81 MG ENTERIC TAB PO SCH (08:28)
[2019-07-28] MEDS: LEVEMIR (INSULIN DETEMIR) 1 UNITS/0.01ML SC SCH ×2 (08:29→21:06)
[2019-07-28 14:00] VITALS: BP 114/51
[2019-07-28] MEDS: PERCOCET 5MG/325MG TAB PO PRN (15:19)
[2019-07-28] MEDS ORDERED: amLODIPine 5 MG TAB PO ONE (16:45)
--- NOTE | 2019-07-28 16:45 | IPNPDOC ---
Text Note Date of Service The patient was seen on 07/28/19. NOTE S: Pt examined at bedside. Is feeling well and has no complaints. No issues overnight. Fields starting to drain clear urine with improving hematuria this morning. Pelvic pain resolved. No f/c/n/v/abd pain/cp/sob. Not cleared by PT/OT. He is agreeable for possible placement. PFS looking into this. PE: Vitals: see below General exam: A&Ox3, NAD, resting comfortably HEENT: NCAT, EOMI, neck supple, MMM Cardiac: RRR, normal S1 & S2, no murmurs Respiratory: CTAB, good air exchange, no w/r/r Abdomen: soft, NT, ND, normoactive bowel sounds : Fields with orange urine in bag and clear yellow urine draining in proximal tube. No visible clots. No pelvic tenderness Extremity: 2+ radial and dorsalis pedis pulses, no edema or calf tenderness Skin: [place], warm, dry, no visible rash Neuro: normal speech, no focal deficits. Resting tremor & masked facies congruent with his Parkinson's A/P: 1. Hematuria: almost fully resolved with supportive care and close monitoring. H&H stable without any transfusions. Likely 2/[address] stent pl acement & lithotripsy. Normally follows with Dr. Vázquez - spoke with him today. Per Urology, remove Fields and monitor urine o/p voiding trial, f/u with post-void residual if needed, and reinsert Fields if retention; continue Flomax ,and continue holding Oxybutinin. 2. HTN: pt initially hypotensive on admission from hypovolemia- resolved with IVF. Pt now actually hypertensive, asymptomatic. Will adjust his home Benazepril regimen and monitor. 3. Debility: pt feels weak and lives alone at home with 2x/week nursing visit. Pt would like placement - PFS assisting. Work with PT/OT. 4. Obstructive uropathy: will remove Fields today as per Urology and follow with PVR scan. See #1 5. Chronic diastolic CHF: Noted per 2018 echo. No signs of decompensation 6. Parkinson's dementia: Patient is a good historian with mild memory deficits. Continue Home Carbidopa Levodopa, Aripiprazole. PFS looking into alf placement 7. Hyperlipidemia: Continue statin & ASA 8. Anxiety: Continue home Xanax when necessary 9. GERD: Continue Protonix 10. IDDM 2: Insulin sliding scale inpatient replacing home NovoLog, Victoza, metformin, Jardiance DVT prophylaxis: Mechanical DISPOSITION: pending clinical improvement, PT/OT, PFS for possible alf placement. VS,Fishbone, I+O VS, Fishbone, I+O Laboratory Tests 07/28/19 05:28 Vital Signs Date Time Temp Pulse Resp B/P (MAP) Pulse Ox O2 Delivery O2 Flow Rate FiO2 07/28/19 15:49 18 07/28/19 14:00 98.9 63 114/51 (72) 94 Room Air I&O- Last 24 Hours up to 6 AM 07/28/19 06:00 Intake Total 1250 ml Output Total 3300 ml Balance -2050 ml GME ATTESTATION GME ATTESTATION My faculty preceptor for this patient encounter was physically present during the encounter and was fully available. All aspects of the patient interview, examination, medical decision making process, and medical care plan development were reviewed and approved by the faculty preceptor. The faculty preceptor is aware and concurs with the plan as stated in the body of this note and will attest to such by his/her cosignature. ATTENDING NOTE I, Charles Rosa, have independently examined this patient and performed my own physical exam, as well as reviewed the documentation and edited where necessary. I have discussed in detail with the resident / student the findings and plan of treatment as documented by the resident / student and edited their note. I agree with their findings and treatment plan and have edited their documentation. I will continue to follow the patient during this hospital stay. ZENA GREY DO Jul 28, 2019 16:45 CHARLES ROSA MD Jul 28, 2019 17:09
[2019-07-28 16:54] VITALS: BP 178/82
[2019-07-28 17:51] VITALS: BP 141/63
[2019-07-28] MEDS: lisinopriL 5 MG TAB PO SCH (21:06)
[2019-07-28] MEDS: ARIPiprazole 15 MG TAB (AbiLIFY) PO SCH (21:06)
[2019-07-28 22:00] VITALS: BP 130/60
[2019-07-29] MEDS: ACETAMINOPHEN 500 MG TAB PO PRN ×2 (03:01→16:21)
[2019-07-29 06:00] VITALS: BP 121/50
[2019-07-29 06:23] LABS: HEMATOCRIT 38.3 % (42.0-52.0); HEMOGLOBIN 13.2 g/dl (13.5-17.5); MEAN CORPUSCULAR HEMOGLOBIN 33.2 pg (27.0-33.0); MEAN CORPUSCULAR HGB CONC 34.5 g/dl (32.0-36.5); MEAN CORPUSCULAR VOLUME 96.5 fl (80.0-96.0); PLATELET COUNT, AUTOMATED 207 10^3/uL (150-450); RED BLOOD COUNT 3.97 10^6/uL (4.30-6.10); WHITE BLOOD COUNT 7.8 10^3/uL (4.0-10.0)
[2019-07-29] MEDS: ALPRAZolam 0.25 MG TAB PO PRN ×2 (06:34→16:21)
[2019-07-29] MEDS: MOM 30ML SUSPENSION UDC PO PRN (06:35)
[2019-07-29 06:46] LABS: BLOOD UREA NITROGEN 17 MG/DL (7-18); CARBON DIOXIDE LEVEL 29 MEQ/L (21-32); CHLORIDE LEVEL 107 MEQ/L (98-107); GLOMERULAR FILTRATION RATE > 60.0 (>49); GLUCOSE, FASTING 188 MG/DL (70-100); POTASSIUM SERUM 4.3 MEQ/L (3.5-5.1); SODIUM LEVEL 140 MEQ/L (136-145)
[2019-07-29] MEDS: HumaLOG INSULIN (NovoLOG) PER UNIT SC SCH ×4 (08:41→19:54)
[2019-07-29] MEDS: LEVEMIR (INSULIN DETEMIR) 1 UNITS/0.01ML SC SCH ×2 (08:42→20:06)
[2019-07-29] MEDS: SINEMET 25-100 MG TAB PO SCH ×3 (08:42→20:05)
[2019-07-29] MEDS: lisinopriL 5 MG TAB PO SCH ×2 (08:42→20:05)
[2019-07-29] MEDS: ASPIRIN 81 MG ENTERIC TAB PO SCH (08:42)
[2019-07-29] MEDS: TAMSULOSIN 0.4 MG CAP PO SCH (08:42)
[2019-07-29] MEDS: ATORVASTATIN 20 MG TAB PO SCH (08:42)
[2019-07-29] MEDS: PANTOPRAZOLE 40MG TAB (PROTONIX) PO SCH (08:42)
[2019-07-29 14:00] VITALS: BP 110/53
--- NOTE | 2019-07-29 15:38 | IPNPDOC ---
Text Note Date of Service The patient was seen on 07/29/19. NOTE S: Pt examined at bedside. No issues overnight. Urinating well since Fields removed. No longer having hematuria. No complaints this am. No f/c/n/v/abd pain/cp/sob. PE: Vitals: see below General exam: A&Ox3, NAD, resting comfortably HEENT: NCAT, EOMI, neck supple, MMM Cardiac: RRR, normal S1 & S2, no murmurs Respiratory: CTAB, good air exchange, no w/r/r Abdomen: soft, NT, ND, normoactive bowel sounds : No longer has Fields in place. No pelvic tenderness or distension Extremity: 2+ radial and dorsalis pedis pulses, no edema or calf tenderness Skin: [place], warm, dry, no visible rash Neuro: normal speech, no focal deficits. Resting tremor & masked facies congruent with his Parkinson's A/P: 1. Hematuria: resolved with supportive care and close monitoring. H&H stable without any transfusions. Likely 2/2 recent left ureteral stent placement & lithotripsy. Normally follows with Dr. Vázquez -continue Flomax and monitoring s/p Fields removed 07/28. Continue holding Oxybutinin. 2. HTN: pt initially hypotensive on admission from hypovolemia- resolved with IVF. Controlled on current regimen. 3. Debility: pt feels weak and lives alone at home with 2x/week nursing visit. Pt would like placement - PFS assisting. Work with PT/OT. 4. Obstructive uropathy: continue Flomax. No surrent issues. See #1. 5. Chronic diastolic CHF: Noted per 2018 echo. No signs of decompensation 6. Parkinson's dementia: Patient is a good historian with mild memory deficits. Continue Home Carbidopa Levodopa, Aripiprazole. PFS looking into detention placement 7. Hyperlipidemia: Continue statin & ASA 8. Anxiety: Continue home Xanax when necessary 9. GERD: Continue Protonix 10. IDDM 2: Insulin sliding scale inpatient replacing home NovoLog, Victoza, metformin, Jardiance DVT prophylaxis: Mechanical DISPOSITION: pending PT/OT, PFS for possible assisted living. VS,Fishbone, I+O VS, Fishbone, I+O Laboratory Tests 07/29/19 05:31 Vital Signs Date Time Temp Pulse Resp B/P (MAP) Pulse Ox O2 Delivery O2 Flow Rate FiO2 07/29/19 08:42 122/68 07/29/19 06:00 97.6 57 18 100 Room Air I&O- Last 24 Hours up to 6 AM 07/29/19 06:00 Intake Total 1420 ml Output Total 2300 ml Balance -880 ml GME ATTESTATION GME ATTESTATION My faculty preceptor for this patient encounter was physically present during e encounter and was fully available. All aspects of the patient interview, examination, medical decision making process, and medical care plan development were reviewed and approved by the faculty preceptor. The faculty preceptor is aware and concurs with the plan as stated in the body of this note and will attest to such by his/her cosignature. ZENA GREY DO Jul 29, 2019 15:38
[2019-07-29] MEDS ORDERED: TUBERCULIN PPD 5 UNITS/0.1 ML ID ONE (16:00)
[2019-07-29] MEDS: ARIPiprazole 15 MG TAB (AbiLIFY) PO SCH (20:06)
[2019-07-29 22:00] VITALS: BP 143/80
[2019-07-30] MEDS: ALPRAZolam 0.25 MG TAB PO PRN ×3 (03:24→21:19)
[2019-07-30] MEDS: ACETAMINOPHEN 500 MG TAB PO PRN (03:24)
[2019-07-30 06:00] VITALS: BP 142/69
[2019-07-30 06:03] LABS: HEMATOCRIT 42.2 % (42.0-52.0); MEAN CORPUSCULAR HEMOGLOBIN 32.5 pg (27.0-33.0); MEAN CORPUSCULAR HGB CONC 33.2 g/dl (32.0-36.5); MEAN CORPUSCULAR VOLUME 97.9 fl (80.0-96.0); PLATELET COUNT, AUTOMATED 208 10^3/uL (150-450); RED BLOOD COUNT 4.31 10^6/uL (4.30-6.10); WHITE BLOOD COUNT 7.2 10^3/uL (4.0-10.0)
[2019-07-30 06:23] LABS: BLOOD UREA NITROGEN 19 MG/DL (7-18); CALCIUM LEVEL 9.1 MG/DL (8.8-10.2); CARBON DIOXIDE LEVEL 30 MEQ/L (21-32); CHLORIDE LEVEL 107 MEQ/L (98-107); CREATININE FOR GFR 0.91 MG/DL (0.70-1.30); GLOMERULAR FILTRATION RATE > 60.0 (>49); GLUCOSE, FASTING 153 MG/DL (70-100); POTASSIUM SERUM 3.8 MEQ/L (3.5-5.1); SODIUM LEVEL 140 MEQ/L (136-145)
[2019-07-30] MEDS: PANTOPRAZOLE 40MG TAB (PROTONIX) PO SCH (08:29)
[2019-07-30] MEDS: ASPIRIN 81 MG ENTERIC TAB PO SCH (08:29)
[2019-07-30] MEDS: lisinopriL 5 MG TAB PO SCH ×2 (08:29→20:26)
[2019-07-30] MEDS: SINEMET 25-100 MG TAB PO SCH ×3 (08:29→20:26)
[2019-07-30] MEDS: TAMSULOSIN 0.4 MG CAP PO SCH (08:29)
[2019-07-30] MEDS: ATORVASTATIN 20 MG TAB PO SCH (08:29)
[2019-07-30] MEDS: LEVEMIR (INSULIN DETEMIR) 1 UNITS/0.01ML SC SCH ×2 (08:29→20:34)
[2019-07-30] MEDS: HumaLOG INSULIN (NovoLOG) PER UNIT SC SCH ×4 (08:30→21:00)
[2019-07-30 14:00] VITALS: BP 135/75
[2019-07-30] MEDS: MOM 30ML SUSPENSION UDC PO PRN (15:37)
--- NOTE | 2019-07-30 18:28 | IPNPDOC ---
Text Note Date of Service The patient was seen on 07/30/19. NOTE S: Pt examined at bedside. Has no complaints and is feeling well. Looking forward to placement. Still urinating well independently since Fields removed. Hematuria resolved. No f/c/n/v/abd pain/cp/sob. PE: Vitals: see below General exam: A&Ox3, NAD, resting comfortably HEENT: NCAT, EOMI, neck supple, MMM Cardiac: RRR, normal S1 & S2, no murmurs Respiratory: CTAB, good air exchange, no w/r/r Abdomen: soft, NT, ND, normoactive bowel sounds : No pelvic tenderness or distension. No CVA tenderness Extremity: 2+ radial and dorsalis pedis pulses, no edema or calf tenderness Skin: [place], warm, dry, no visible rash Neuro: normal speech, no focal deficits. Resting tremor & masked facies congruent with his Parkinson's A/P: 1. Hematuria: resolved with supportive care and close monitoring. H&H stable without any transfusions. Likely 2/2 recent left ureteral stent placement & lithotripsy. Normally follows with Dr. Vázquez -continue Flomax and monitoring s/p Fields removed 07/28. Continue holding Oxybutinin-until o/p f/u with Urology. 2. HTN: pt initially hypotensive on admission from hypovolemia- resolved with IVF. Controlled on current regimen. 3. Debility: pt feels weak and lives alone at home with 2x/week nursing visit. Pt would like placement - PFS assisting. Work with PT/OT. 4. Obstructive uropathy: continue Flomax. No complaints. See #1. 5. Chronic diastolic CHF: Noted per 2018 echo. No signs of decompensation 6. Parkinson's dementia: Patient is a good historian with mild memory deficits. Continue Home Carbidopa Levodopa, Aripiprazole. PFS looking into shelter placement 7. Hyperlipidemia: Continue statin & ASA 8. Anxiety: Continue home Xanax when necessary 9. GERD: Continue Protonix 10. IDDM 2: Insulin sliding scale inpatient replacing home NovoLog, Victoza, metformin, Jardiance DVT prophylaxis: Mechanical DISPOSITION: pending PT/OT, PFS for possible assisted living. Medically stable. VS,Fishbone, I+O VS, Fishbone, I+O Laboratory Tests 07/30/19 05:23 Vital Signs Date Time Temp Pulse Resp B/P (MAP) Pulse Ox O2 Delivery O2 Flow Rate FiO2 07/30/19 14:00 98.0 75 18 135/75 (95) 96 Room Air I&O- Last 24 Hours up to 6 AM0 07/30/19 06:00 Intake Total 2460 ml Output Total 775 ml Balance 1685 ml GME ATTESTATION GME ATTESTATION My faculty preceptor for this patient encounter was physically present during the encounter and was fully available. All aspects of the patient interview, examination, medical decision making process, and medical care plan development were reviewed and approved by the faculty preceptor. The faculty preceptor is aware and concurs with the plan as stated in the body of this note and will attest to such by his/her cosignature. ZENA GREY DO Jul 30, 2019 18:28
[2019-07-30] MEDS: ARIPiprazole 15 MG TAB (AbiLIFY) PO SCH (20:25)
[2019-07-30 22:00] VITALS: BP 86/53
[2019-07-31] MEDS: PERCOCET 5MG/325MG TAB PO PRN ×2 (00:11→08:34)
[2019-07-31] MEDS: MOM 30ML SUSPENSION UDC PO PRN (04:54)
[2019-07-31 06:00] VITALS: BP 114/63
[2019-07-31] MEDS: HumaLOG INSULIN (NovoLOG) PER UNIT SC SCH ×4 (07:30→20:07)
[2019-07-31] MEDS: TAMSULOSIN 0.4 MG CAP PO SCH (08:27)
[2019-07-31] MEDS: ATORVASTATIN 20 MG TAB PO SCH (08:27)
[2019-07-31] MEDS: LEVEMIR (INSULIN DETEMIR) 1 UNITS/0.01ML SC SCH ×2 (08:27→20:36)
[2019-07-31] MEDS: SINEMET 25-100 MG TAB PO SCH ×3 (08:27→20:35)
[2019-07-31] MEDS: ASPIRIN 81 MG ENTERIC TAB PO SCH (08:27)
[2019-07-31] MEDS: lisinopriL 5 MG TAB PO SCH ×2 (08:27→20:36)
[2019-07-31] MEDS: PANTOPRAZOLE 40MG TAB (PROTONIX) PO SCH (08:27)
--- NOTE | 2019-07-31 12:00 | IPNPDOC ---
Text Note Date of Service The patient was seen on 07/31/19. NOTE S: Pt examined at bedside. No complaints. resting comfortably. No issues overnight. Awaiting placement. No pelvic pain or hematuria. No f/c/n/v/abd pain/cp/sob. PE: Vitals: see below General exam: A&Ox3, NAD, resting comfortably HEENT: NCAT, EOMI, neck supple, MMM Cardiac: RRR, normal S1 & S2, no murmurs Respiratory: CTAB, good air exchange, no w/r/r Abdomen: soft, NT, ND, hypoactive bowel sounds : No pelvic tenderness or distension. No CVA tenderness Extremity: 2+ radial and dorsalis pedis pulses, no edema or calf tenderness Skin: [place], warm, dry, no visible rash Neuro: normal speech, no focal deficits. Resting tremor & masked facies congruent with his Parkinson's A/P: 1. Hematuria: resolved with supportive care and close monitoring. H&H stable wit hout any transfusions. Likely 2/2 recent left ureteral stent placement & lithotripsy. Normally follows with Dr. Vázquez -continue Flomax and monitoring s/p Fields removed 07/28. Continue holding Oxybutinin-until o/p f/u with Urology. 2. HTN: pt initially hypotensive on admission from hypovolemia- resolved with IVF. Controlled on current regimen. 3. Debility: pt feels weak and lives alone at home with 2x/week nursing visit. PT/OT and likely to Assisted Living. 4. Obstructive uropathy: continue Flomax. No complaints. See #1. 5. Chronic diastolic CHF: Noted per 2018 echo. Euvolemic. 6. Parkinson's dementia: Patient is a good historian with mild memory deficits. Continue Home Carbidopa Levodopa, Aripiprazole. PFS looking into retirement placement 7. Hyperlipidemia: Continue statin & ASA 8. Anxiety: Continue home Xanax when necessary 9. GERD: Continue Protonix 10. IDDM 2: Insulin sliding scale inpatient replacing home NovoLog, Victoza, metformin, Jardiance DVT prophylaxis: Mechanical DISPOSITION: Medically stable. Pending PT/OT, and likely to Assisted Living early next week. VS,Fishbone, I+O VS, Fishbone, I+O Vital Signs Date Time Temp Pulse Resp B/P (MAP) Pulse Ox O2 Delivery O2 Flow Rate FiO2 07/31/19 09:04 16 07/31/19 08:27 146/62 07/31/19 06:00 97.5 59 95 Room Air I&O- Last 24 Hours up to 6 AM 07/31/19 06:00 Intake Total 2892 ml Output Total 750 ml Balance 2142 ml GME ATTESTATION GME ATTESTATION My faculty preceptor for this patient encounter was physically present during the encounter and was fully available. All aspects of the patient interview, examination, medical decision making process, and medical care plan development were reviewed and approved by the faculty preceptor. The faculty preceptor is aware and concurs with the plan as stated in the body of this note and will attest to such by his/her cosignature. ZENA GREY DO Jul 31, 2019 12:00
[2019-07-31 14:00] VITALS: BP 141/62
[2019-07-31] MEDS: ALPRAZolam 0.25 MG TAB PO PRN (15:08)
[2019-07-31] MEDS ORDERED: PPD DOCUMENTATION ENTRY MISC XX ONE (16:00)
[2019-07-31] MEDS ORDERED: MIRALAX *UNIT DOSE* 17GM PACKET PO ONE (16:00)
[2019-07-31] MEDS: ARIPiprazole 15 MG TAB (AbiLIFY) PO SCH (20:37)
[2019-07-31 22:00] VITALS: BP 132/61
[2019-07-31] MEDS ORDERED: FLEET OIL RETENTION ENEMA PR PRN (22:00)
[2019-07-31] MEDS: DOCUSATE SODIUM 100 MG CAP PO SCH (22:16)
[2019-07-31] MEDS: ACETAMINOPHEN 500 MG TAB PO PRN (22:17)
[2019-08-01 06:00] VITALS: BP 125/59
[2019-08-01] MEDS: MIRALAX *UNIT DOSE* 17GM PACKET PO SCH (08:09)
[2019-08-01] MEDS: ATORVASTATIN 20 MG TAB PO SCH (08:09)
[2019-08-01] MEDS: PANTOPRAZOLE 40MG TAB (PROTONIX) PO SCH (08:09)
[2019-08-01] MEDS: TAMSULOSIN 0.4 MG CAP PO SCH (08:09)
[2019-08-01] MEDS: ALPRAZolam 0.25 MG TAB PO PRN ×2 (08:09→16:08)
[2019-08-01] MEDS: DOCUSATE SODIUM 100 MG CAP PO SCH ×2 (08:09→20:19)
[2019-08-01] MEDS: LEVEMIR (INSULIN DETEMIR) 1 UNITS/0.01ML SC SCH ×2 (08:10→20:19)
[2019-08-01] MEDS: SINEMET 25-100 MG TAB PO SCH ×3 (08:10→20:19)
[2019-08-01] MEDS: lisinopriL 5 MG TAB PO SCH ×2 (08:10→20:22)
[2019-08-01] MEDS: ASPIRIN 81 MG ENTERIC TAB PO SCH (08:10)
[2019-08-01] MEDS: HumaLOG INSULIN (NovoLOG) PER UNIT SC SCH ×4 (08:11→20:20)
[2019-08-01 14:00] VITALS: BP 111/51
[2019-08-01] MEDS: ACETAMINOPHEN 500 MG TAB PO PRN (16:09)
--- NOTE | 2019-08-01 17:57 | IPNPDOC ---
Text Note Date of Service The patient was seen on 08/01/19. NOTE S: Pt examined at bedside. Doing well, no issues overnight or changes from yesterday. No f/c/n/v/abd or pelvic pain. No hematuria. Urinating well. Awaiting placement. PE: Vitals: see below General exam: A&Ox3, NAD, laying in bed comfortably HEENT: NCAT, EOMI, neck supple, MMM Cardiac: RRR, normal S1 & S2, no murmurs Respiratory: CTAB, good air exchange, no w/r/r Abdomen: soft, NT, ND, normoactive bowel sounds : No pelvic tenderness or distension. No CVA tenderness Extremity: 2+ radial and dorsalis pedis pulses, no edema or calf tenderness Skin: [place], warm, dry Neuro: normal speech, no focal deficits. Resting tremor & masked facies congruent with his Parkinson's A/P: 1. Hematuria: resolved with supportive care and close monitoring. H&H stable without any transfusions. Likely 2/2 recent left ureteral stent placement & lithotripsy. Normally follows with Dr. Vázquez -continue Flomax and monitoring s/p Fields removed 07/28. Continue holding Oxybutinin-until o/p f/u with Urology. 2. HTN: pt initially hypotensive on admission from hypovolemia- resolved with IVF. Controlled on current regimen. 3. Debility: pt feels weak and lives alone at home with 2x/week nursing visit. PT/OT and likely to Assisted Living. 4. Obstructive uropathy: continue Flomax. No complaints. See #1. 5. Chronic diastolic CHF: Noted per 2018 echo. Euvolemic. 6. Parkinson's dementia: Patient is a good historian with mild memory deficits. Continue Home Carbidopa Levodopa, Aripiprazole. PFS looking into detention placement 7. Hyperlipidemia: Continue statin & ASA 8. Anxiety: Continue home Xanax when necessary 9. GERD: Continue Protonix 10. IDDM 2: Insulin sliding scale inpatient replacing home NovoLog, Victoza, metformin, Jardiance DVT prophylaxis: Mechanical DISPOSITION: Medically stable. Pending PT/OT, and likely to Assisted Living early next week. VS,Fishbone, I+O VS, Fishbone, I+O Vital Signs Date Time Temp Pulse Resp B/P (MAP) Pulse Ox O2 Delivery O2 Flow Rate FiO2 08/01/19 14:00 97.9 63 18 111/51 (71) 95 Room Air I&O- Last 24 Hours up to 6 AM 08/01/19 06:00 Intake Total 1680 ml Output Total 1000 ml Balance 680 ml GME ATTESTATION GME ATTESTATION My faculty preceptor for this patient encounter was physically present during the encounter and was fully available. All aspects of the patient interview, examination, medical decision making process, and medical care plan development were reviewed and approved by the faculty preceptor. The faculty preceptor is aware and concurs with the plan as stated in the body of this note and will attest to such by his/her cosignature. ZENA GREY DO Aug 01, 2019 17:57
[2019-08-01] MEDS: ARIPiprazole 15 MG TAB (AbiLIFY) PO SCH (20:19)
[2019-08-01 22:00] VITALS: BP 121/56
[2019-08-01 22:48] LABS: APPEARANCE, URINE CLEAR (CLEAR); BACTERIA, URINE AUTO NEGATIVE (NEGATIVE); BILIRUBIN, URINE AUTO NEGATIVE (NEGATIVE); BLOOD, URINE BLOOD 3+ (NEGATIVE); COLOR, URINE YELLOW (YELLOW); GLUCOSE, URINE (UA) AUTO 3+ mg/dL (NEGATIVE); KETONE, URINE AUTO NEGATIVE (NEGATIVE); LEUKOCYTE ESTERASE, URINE AUTO 1+ (NEGATIVE); NITRITE, URINE AUTO NEGATIVE (NEGATIVE); PROTEIN, URINE AUTO NEGATIVE (NEGATIVE); RBC, URINE AUTO TNTC /HPF (0-3); SPECIFIC GRAVITY URINE AUTO 1.017 (1.002-1.035); SQUAMOUS EPITHELIAL CELL UR AU 0 /HPF (0-6); TRANSITIONAL EPITHELIAL AUTO <1 /HPF; UROBILINOGEN, URINE AUTO 0.2 mg/dL (0.0-2.0); WBC, URINE AUTO 12 /HPF (0-3)
[2019-08-02] MEDS: ACETAMINOPHEN 500 MG TAB PO PRN (01:59)
[2019-08-02 06:00] VITALS: BP 135/74
[2019-08-02 07:30] VITALS: BP 148/68
[2019-08-02] MEDS: HumaLOG INSULIN (NovoLOG) PER UNIT SC SCH ×4 (07:48→20:58)
[2019-08-02] MEDS: LEVEMIR (INSULIN DETEMIR) 1 UNITS/0.01ML SC SCH ×2 (07:48→20:58)
[2019-08-02] MEDS: ALPRAZolam 0.25 MG TAB PO PRN ×2 (07:50→18:50)
[2019-08-02] MEDS: PERCOCET 5MG/325MG TAB PO PRN (07:50)
[2019-08-02 08:08] LABS: HEMATOCRIT 39.5 % (42.0-52.0); HEMOGLOBIN 13.3 g/dl (13.5-17.5); MEAN CORPUSCULAR HEMOGLOBIN 32.9 pg (27.0-33.0); MEAN CORPUSCULAR HGB CONC 33.7 g/dl (32.0-36.5); MEAN CORPUSCULAR VOLUME 97.8 fl (80.0-96.0); PLATELET COUNT, AUTOMATED 207 10^3/uL (150-450); RED BLOOD COUNT 4.04 10^6/uL (4.30-6.10); WHITE BLOOD COUNT 6.5 10^3/uL (4.0-10.0)
[2019-08-02 08:28] LABS: BLOOD UREA NITROGEN 18 MG/DL (7-18); CALCIUM LEVEL 9.2 MG/DL (8.8-10.2); CARBON DIOXIDE LEVEL 29 MEQ/L (21-32); CHLORIDE LEVEL 108 MEQ/L (98-107); CREATININE FOR GFR 0.89 MG/DL (0.70-1.30); GLOMERULAR FILTRATION RATE > 60.0 (>49); GLUCOSE, FASTING 172 MG/DL (70-100); POTASSIUM SERUM 4.5 MEQ/L (3.5-5.1); SODIUM LEVEL 143 MEQ/L (136-145)
[2019-08-02] MEDS: SINEMET 25-100 MG TAB PO SCH ×3 (08:47→20:58)
[2019-08-02] MEDS: MIRALAX *UNIT DOSE* 17GM PACKET PO SCH (09:11)
[2019-08-02] MEDS: TAMSULOSIN 0.4 MG CAP PO SCH (09:11)
[2019-08-02] MEDS: ASPIRIN 81 MG ENTERIC TAB PO SCH (09:11)
[2019-08-02] MEDS: DOCUSATE SODIUM 100 MG CAP PO SCH ×2 (09:12→20:58)
[2019-08-02] MEDS: ATORVASTATIN 20 MG TAB PO SCH (09:12)
[2019-08-02] MEDS: PANTOPRAZOLE 40MG TAB (PROTONIX) PO SCH (09:12)
[2019-08-02] MEDS: lisinopriL 5 MG TAB PO SCH ×2 (09:13→20:57)
--- NOTE | 2019-08-02 11:26 | IPNPDOC ---
Text Note Date of Service The patient was seen on 08/02/19. NOTE S: Pt examined at bedside. Intermittent cramps left flank, similar to ones he was admitted with. Has recent ureteral stent placed on that side. No reported events overnight. Afebrile, no n/v/urinary retention, dysuria, urgeny, frequency. Scant hematuria, but states urine is mostly clear. Awaiting placement. PE: Vitals: see below General exam: A&Ox3, NAD, laying in bed comfortably HEENT: NCAT, EOMI, neck supple, MMM Cardiac: RRR, normal S1 & S2, no murmurs Respiratory: CTAB, good air exchange, no w/r/r Abdomen: soft, ND, hypoactive bowel sounds. Mild tenderness left mid abd : No pelvic tenderness or bladder distension. No CVA tenderness Extremity: 2+ radial and dorsalis pedis pulses, no edema or calf tenderness Skin: [place], warm, dry Neuro: normal speech, no focal deficits. Resting tremor & masked facies congruent with his Parkinson's A/P: 1. Hematuria: resolved with supportive care and close monitoring. H&H stable without any transfusions. Likely 2/2 recent left ureteral stent placement & lithotripsy. Normally follows with Dr. Vázquez -continue Flomax and monitoring s/p Fields removed 07/28. Continue holding Oxybutinin-until o/p f/u with Urology. 2. HTN: pt initially hypotensive on admission from hypovolemia- resolved with IVF. Controlled on current regimen. 3. Debility: pt feels weak and lives alone at home with 2x/week nursing visit. PT/OT and likely to Assisted Living. 4. Obstructive uropathy: continue Flomax. No complaints. See #1. 5. Chronic diastolic CHF: Noted per 2018 echo. Euvolemic. 6. Parkinson's dementia: Patient is a good historian with mild memory deficits. Continue Home Carbidopa Levodopa, Aripiprazole. PFS looking into jail placement 7. Hyperlipidemia: Continue statin & ASA 8. Anxiety: Continue home Xanax when necessary 9. GERD: Continue Protonix 10. IDDM 2: Insulin sliding scale inpatient replacing home NovoLog, Victoza, metformin, Jardiance DVT prophylaxis: Mechanical DISPOSITION: Medically stable. Pending PT/OT, and likely to Assisted Living early next week. VS,Fishbone, I+O VS, Fishbone, I+O Laboratory Tests 08/02/19 07:55 Vital Signs Date Time Temp Pulse Resp B/P (MAP) Pulse Ox O2 Delivery O2 Flow Rate FiO2 08/02/19 09:13 148/68 08/02/19 08:20 17 08/02/19 07:30 97.5 62 99 Room Air I&O- Last 24 Hours up to 6 AM 08/02/19 06:00 Intake Total 940 ml Output Total 850 ml Balance 90 ml GME ATTESTATION GME ATTESTATION My faculty preceptor for this patient encounter was physically present during the encounter and was fully available. All aspects of the patient interview, examination, medical decision making process, and medical care plan development were reviewed and approved by the faculty preceptor. The faculty preceptor is aware and concurs with the plan as stated in the body of this note and will attest to such by his/her cosignature. ZENA GREY DO Aug 02, 2019 11:26
[2019-08-02 14:00] VITALS: BP 114/64
[2019-08-02] MEDS: ARIPiprazole 15 MG TAB (AbiLIFY) PO SCH (20:58)
[2019-08-02 22:00] VITALS: BP 127/72
--- NOTE | 2019-08-03 01:23 | REPVR ---
PROCEDURE INFORMATION: Exam: XR Abdomen, 1 View Exam date and time: 08/03/2019 12:50 AM Age: 69 years old Clinical history: Other: Doc request TECHNIQUE: Imaging protocol: XR of the abdomen. Views: Frontal supine view of the abdomen. 1 View. COMPARISON: CR Abdomen,Flat Plate KUB 07/25/2019 6:05 PM FINDINGS: Unchanged position of urinary stent. Left renal calculi are present over the kidney and right renal calculi are also present overlying the right kidney. Bowel gas pattern is nonobstructive. Large volume of colonic stool is present. Mild degenerative changes are seen in the lumbar spine and vascular calcifications are present. IMPRESSION: No significant change in appearance. Multiple left renal calculi with left-sided double-J stent appropriately positioned radiographically Nonobstructive right renal calculi, as seen on CT Electronically signed by: Richy Castro On 08/03/2019 01:23:00 AM
[2019-08-03 06:00] VITALS: BP 132/77
[2019-08-03 06:39] LABS: HEMATOCRIT 38.8 % (42.0-52.0); MEAN CORPUSCULAR HEMOGLOBIN 32.8 pg (27.0-33.0); MEAN CORPUSCULAR HGB CONC 33.5 g/dl (32.0-36.5); PLATELET COUNT, AUTOMATED 198 10^3/uL (150-450); RED BLOOD COUNT 3.96 10^6/uL (4.30-6.10)
[2019-08-03] MEDS: ALPRAZolam 0.25 MG TAB PO PRN ×2 (06:44→16:28)
[2019-08-03 07:02] LABS: BLOOD UREA NITROGEN 19 MG/DL (7-18); CALCIUM LEVEL 8.9 MG/DL (8.8-10.2); CARBON DIOXIDE LEVEL 29 MEQ/L (21-32); CHLORIDE LEVEL 110 MEQ/L (98-107); CREATININE FOR GFR 1.03 MG/DL (0.70-1.30); GLOMERULAR FILTRATION RATE > 60.0 (>49); GLUCOSE, FASTING 130 MG/DL (70-100); MAGNESIUM LEVEL 1.9 MG/DL (1.8-2.4); POTASSIUM SERUM 4.2 MEQ/L (3.5-5.1); SODIUM LEVEL 144 MEQ/L (136-145)
[2019-08-03] MEDS: HumaLOG INSULIN (NovoLOG) PER UNIT SC SCH ×4 (07:46→21:00)
[2019-08-03] MEDS: LEVEMIR (INSULIN DETEMIR) 1 UNITS/0.01ML SC SCH ×2 (07:46→21:24)
[2019-08-03] MEDS: PERCOCET 5MG/325MG TAB PO PRN ×2 (08:44→19:28)
[2019-08-03] MEDS: TAMSULOSIN 0.4 MG CAP PO SCH (08:44)
[2019-08-03] MEDS: MIRALAX *UNIT DOSE* 17GM PACKET PO SCH (08:45)
[2019-08-03] MEDS: ATORVASTATIN 20 MG TAB PO SCH (08:45)
[2019-08-03] MEDS: DOCUSATE SODIUM 100 MG CAP PO SCH ×2 (08:46→19:49)
[2019-08-03] MEDS: SINEMET 25-100 MG TAB PO SCH ×3 (08:46→19:49)
[2019-08-03] MEDS: lisinopriL 5 MG TAB PO SCH ×2 (08:46→19:49)
[2019-08-03] MEDS: ASPIRIN 81 MG ENTERIC TAB PO SCH (08:46)
[2019-08-03] MEDS: PANTOPRAZOLE 40MG TAB (PROTONIX) PO SCH (08:46)
--- NOTE | 2019-08-03 12:57 | IPNPDOC ---
Text Note Date of Service The patient was seen on 08/03/19. NOTE Subjective: Patient seen and examined at bedside. No acute overnight events reported, no new medical complaints. Objective: Vitals: see below General exam: NAD, laying in bed comfortably HEENT: NCAT, EOMI, neck supple, MMM Cardiac: RRR, normal S1 & S2, no murmurs Respiratory: CTAB, good air exchange, no w/r/r Abdomen: soft, ND, hypoactive bowel sounds. Mild tenderness left mid abd : No pelvic tenderness or bladder distension. No CVA tenderness Extremity: 2+ radial and dorsalis pedis pulses, no edema or calf tenderness Skin: [place], warm, dry Neuro: normal speech, no focal deficits. Resting tremor & masked facies congruent with his Parkinson's A/P: 1. Hematuria: resolved with supportive care and close monitoring. H&H stable without any transfusions. Likely 2/2 recent left ureteral stent placement & lithotripsy. Normally follows with Dr. Vázquez -continue Flomax and monitoring s/p Fields removed 07/28. Continue holding Oxybutinin-until o/p f/u with Urology. 2. HTN: pt initially hypotensive on admission from hypovolemia- resolved with IVF. Controlled on current regimen. 3. Debility: pt feels weak and lives alone at home with 2x/week nursing visit. PT/OT and likely to Assisted Living. 4. Obstructive uropathy: continue Flomax. No complaints. See #1. 5. Chronic diastolic CHF: Noted per 2018 echo. Euvolemic. 6. Parkinson's dementia: Patient is a good historian with mild memory deficits. Continue Home Carbidopa Levodopa, Aripiprazole. PFS looking into jail placement 7. Hyperlipidemia: Continue statin & ASA 8. Anxiety: Continue home Xanax when necessary 9. GERD: Continue Protonix 10. IDDM 2: Insulin sliding scale inpatient replacing home NovoLog, Victoza, metformin, Jardiance DVT prophylaxis: Mechanical DISPOSITION: Pending PT/OT, and likely placement to assisted living facility. VS,Fishbone, I+O VS, Fishbone, I+O Laboratory Tests 08/03/19 05:15 Vital Signs Date Time Temp Pulse Resp B/P (MAP) Pulse Ox O2 Delivery O2 Flow Rate FiO2 08/03/19 09:14 17 08/03/19 08:46 135/68 08/03/19 06:00 97.4 75 99 Room Air I&O- Last 24 Hours up to 6 AM 08/03/19 06:00 Intake Total 2010 ml Output Total 1225 ml Balance 785 ml VERONIKA GUTIERREZ MD Aug 03, 2019 12:57
[2019-08-03 14:00] VITALS: BP 137/65
[2019-08-03] MEDS: ARIPiprazole 15 MG TAB (AbiLIFY) PO SCH (19:49)
[2019-08-03 22:00] VITALS: BP 128/64
[2019-08-04 06:00] VITALS: BP 132/69
[2019-08-04] MEDS: ALPRAZolam 0.25 MG TAB PO PRN ×2 (06:13→13:35)
[2019-08-04 06:18] LABS: HEMATOCRIT 38.7 % (42.0-52.0); HEMOGLOBIN 13.1 g/dl (13.5-17.5); MEAN CORPUSCULAR HEMOGLOBIN 33.1 pg (27.0-33.0); MEAN CORPUSCULAR HGB CONC 33.9 g/dl (32.0-36.5); MEAN CORPUSCULAR VOLUME 97.7 fl (80.0-96.0); PLATELET COUNT, AUTOMATED 200 10^3/uL (150-450); RED BLOOD COUNT 3.96 10^6/uL (4.30-6.10); WHITE BLOOD COUNT 6.1 10^3/uL (4.0-10.0)
[2019-08-04 06:48] LABS: BLOOD UREA NITROGEN 19 MG/DL (7-18); CARBON DIOXIDE LEVEL 29 MEQ/L (21-32); CHLORIDE LEVEL 108 MEQ/L (98-107); CREATININE FOR GFR 0.96 MG/DL (0.70-1.30); GLOMERULAR FILTRATION RATE > 60.0 (>49); GLUCOSE, FASTING 154 MG/DL (70-100); MAGNESIUM LEVEL 1.8 MG/DL (1.8-2.4); SODIUM LEVEL 144 MEQ/L (136-145)
[2019-08-04] MEDS: PERCOCET 5MG/325MG TAB PO PRN ×2 (08:14→15:52)
[2019-08-04] MEDS: SINEMET 25-100 MG TAB PO SCH ×3 (08:14→22:13)
[2019-08-04] MEDS: MIRALAX *UNIT DOSE* 17GM PACKET PO SCH (08:14)
[2019-08-04] MEDS: PANTOPRAZOLE 40MG TAB (PROTONIX) PO SCH (08:15)
[2019-08-04] MEDS: TAMSULOSIN 0.4 MG CAP PO SCH (08:15)
[2019-08-04] MEDS: ATORVASTATIN 20 MG TAB PO SCH (08:15)
[2019-08-04] MEDS: lisinopriL 5 MG TAB PO SCH ×2 (08:15→22:15)
[2019-08-04] MEDS: DOCUSATE SODIUM 100 MG CAP PO SCH ×2 (08:15→22:13)
[2019-08-04] MEDS: ASPIRIN 81 MG ENTERIC TAB PO SCH (08:15)
[2019-08-04] MEDS: LEVEMIR (INSULIN DETEMIR) 1 UNITS/0.01ML SC SCH ×2 (08:28→22:14)
[2019-08-04] MEDS: HumaLOG INSULIN (NovoLOG) PER UNIT SC SCH ×4 (08:33→21:00)
[2019-08-04 14:00] VITALS: BP 140/62
--- NOTE | 2019-08-04 14:30 | IPNPDOC ---
Text Note Date of Service The patient was seen on 08/04/19. NOTE Pt examined at bedside. No reported events overnight. urine is mostly clear. Awaiting placement. Physical Examination Vitals: see below General exam: A&Ox3, NAD, laying in bed comfortably HEENT: NCAT, EOMI, neck supple, MMM Cardiac: RRR, normal S1 & S2, no murmurs Respiratory: CTAB, good air exchange, no w/r/r Abdomen: soft, ND, hypoactive bowel sounds. Mild tenderness left mid abd : No pelvic tenderness or bladder distension. No CVA tenderness Extremity: 2+ radial and dorsalis pedis pulses, no edema or calf tenderness Skin: [place], warm, dry Neuro: normal speech, no focal deficits. Resting tremor & masked facies congruent with his Parkinson's Assessment and plan 1. Hematuria: resolved with supportive care and close monitoring. H&H stable without any transfusions. Likely 2/2 recent left ureteral stent placement & lithotripsy. Normally follows with Dr. Vázquez -continue Flomax and monitoring s/p Fields removed 07/28. Continue holding Oxybutinin-until o/p f/u with Urology. 2. HTN: pt initially hypotensive on admission from hypovolemia- resolved with IVF. Controlled on current regimen. 3. Debility: pt feels weak and lives alone at home with 2x/week nursing visit. PT/OT and likely to Assisted Living. 4. Obstructive uropathy: continue Flomax. No complaints. See #1. 5. Chronic diastolic CHF: Noted per 2018 echo. Euvolemic. 6. Parkinson's dementia: Patient is a good historian with mild memory deficits. Continue Home Carbidopa Levodopa, Aripiprazole. PFS looking into residential placement 7. Hyperlipidemia: Continue statin & ASA 8. Anxiety: Continue home Xanax when necessary 9. GERD: Continue Protonix 10. IDDM 2: Insulin sliding scale inpatient replacing home NovoLog, Victoza, metformin, Jardiance DVT prophylaxis: Mechanical DISPOSITION: Medically stable. Awaiting assisted living placement VS,Fishbone, I+O VS, Fishbone, I+O Laboratory Tests 08/04/19 05:32 Vital Signs Date Time Temp Pulse Resp B/P (MAP) Pulse Ox O2 Delivery O2 Flow Rate FiO2 08/04/19 08:44 16 08/04/19 06:00 97.0 58 132/69 (90) 99 Room Air I&O- Last 24 Hours up to 6 AM 08/04/19 06:00 Intake Total 960 ml Output Total 1825 ml Balance -865 ml JUMANA ESTEVEZ MD Aug 04, 2019 14:30
[2019-08-04 22:00] VITALS: BP 135/84
[2019-08-04] MEDS: ARIPiprazole 15 MG TAB (AbiLIFY) PO SCH (22:13)
[2019-08-05 06:00] VITALS: BP 129/61
[2019-08-05 06:08] LABS: HEMOGLOBIN 12.9 g/dl (13.5-17.5); MEAN CORPUSCULAR HEMOGLOBIN 33.2 pg (27.0-33.0); MEAN CORPUSCULAR HGB CONC 33.9 g/dl (32.0-36.5); MEAN CORPUSCULAR VOLUME 97.7 fl (80.0-96.0); PLATELET COUNT, AUTOMATED 179 10^3/uL (150-450); RED BLOOD COUNT 3.89 10^6/uL (4.30-6.10); WHITE BLOOD COUNT 5.9 10^3/uL (4.0-10.0)
[2019-08-05 06:33] LABS: BLOOD UREA NITROGEN 17 MG/DL (7-18); CALCIUM LEVEL 8.9 MG/DL (8.8-10.2); CARBON DIOXIDE LEVEL 30 MEQ/L (21-32); CHLORIDE LEVEL 107 MEQ/L (98-107); CREATININE FOR GFR 0.97 MG/DL (0.70-1.30); GLOMERULAR FILTRATION RATE > 60.0 (>49); GLUCOSE, FASTING 214 MG/DL (70-100); MAGNESIUM LEVEL 1.7 MG/DL (1.8-2.4); POTASSIUM SERUM 4.1 MEQ/L (3.5-5.1); SODIUM LEVEL 141 MEQ/L (136-145)
[2019-08-05] MEDS: MIRALAX *UNIT DOSE* 17GM PACKET PO SCH (08:06)
[2019-08-05] MEDS: ALPRAZolam 0.25 MG TAB PO PRN ×2 (08:07→15:00)
[2019-08-05] MEDS: DOCUSATE SODIUM 100 MG CAP PO SCH ×2 (08:07→21:00)
[2019-08-05] MEDS: HumaLOG INSULIN (NovoLOG) PER UNIT SC SCH ×5 (08:07→21:55)
[2019-08-05] MEDS: ATORVASTATIN 20 MG TAB PO SCH (08:07)
[2019-08-05] MEDS: lisinopriL 5 MG TAB PO SCH ×2 (08:07→21:02)
[2019-08-05] MEDS: TAMSULOSIN 0.4 MG CAP PO SCH (08:08)
[2019-08-05] MEDS: PANTOPRAZOLE 40MG TAB (PROTONIX) PO SCH (08:08)
[2019-08-05] MEDS: SINEMET 25-100 MG TAB PO SCH ×3 (08:08→21:00)
[2019-08-05] MEDS: ASPIRIN 81 MG ENTERIC TAB PO SCH (08:08)
[2019-08-05] MEDS: LEVEMIR (INSULIN DETEMIR) 1 UNITS/0.01ML SC SCH ×2 (08:18→21:03)
[2019-08-05 14:00] VITALS: BP 109/65
--- NOTE | 2019-08-05 14:26 | IPNPDOC ---
Text Note Date of Service The patient was seen on 08/05/19. NOTE Pt examined at bedside. No reported events overnight. urine is mostly clear. Awaiting placement. Physical Examination Vitals: see below General exam: A&Ox3, NAD, laying in bed comfortably HEENT: NCAT, EOMI, neck supple, MMM Cardiac: RRR, normal S1 & S2, no murmurs Respiratory: CTAB, good air exchange, no w/r/r Abdomen: soft, ND, hypoactive bowel sounds. Mild tenderness left mid abd : No pelvic tenderness or bladder distension. No CVA tenderness Extremity: 2+ radial and dorsalis pedis pulses, no edema or calf tenderness Skin: [place], warm, dry Neuro: normal speech, no focal deficits. Resting tremor & masked facies congruent with his Parkinson's Assessment and plan 1. Hematuria: resolved with supportive care and close monitoring. H&H stable without any transfusions. Likely 2/2 recent left ureteral stent placement & lithotripsy. Normally follows with Dr. Vázquez -continue Flomax and monitoring s/p Fields removed 07/28. Continue holding Oxybutinin-until o/p f/u with Urology. 2. HTN: pt initially hypotensive on admission from hypovolemia- resolved with IVF. Controlled on current regimen. 3. Debility: pt feels weak and lives alone at home with 2x/week nursing visit. PT/OT and likely to Assisted Living. 4. Obstructive uropathy: continue Flomax. No complaints. See #1. 5. Chronic diastolic CHF: Noted per 2018 echo. Euvolemic. 6. Parkinson's dementia: Patient is a good historian with mild memory deficits. Continue Home Carbidopa Levodopa, Aripiprazole. PFS looking into skilled nursing placement 7. Hyperlipidemia: Continue statin & ASA 8. Anxiety: Continue home Xanax when necessary 9. GERD: Continue Protonix 10. IDDM 2: Insulin sliding scale inpatient replacing home NovoLog, Victoza, metformin, Jardiance DVT prophylaxis: Mechanical DISPOSITION: Medically stable. Awaiting assisted living placement VS,Fishbone, I+O VS, Fishbone, I+O Laboratory Tests 08/05/19 05:25 Vital Signs Date Time Temp Pulse Resp B/P (MAP) Pulse Ox O2 Delivery O2 Flow Rate FiO2 08/05/19 08:07 129/61 08/05/19 06:00 97.3 54 18 99 Room Air I&O- Last 24 Hours up to 6 AM 08/05/19 06:00 Intake Total 1530 ml Output Total 1125 ml Balance 405 ml JUMANA ESTEVEZ MD Aug 05, 2019 14:26
--- NOTE | 2019-08-05 14:30 | DS.PDOC ---
Discharge Summary General Date of Admission Jul 25, 2019 at 17:48 Date of Discharge 08/06/19 Discharge Summary Chief Complaint The patient is a 68-year-old male admitted with a reason for visit of Hypotension,Lactic Acidosis. History of Present Illness and hopsital course 68-year-old male with PMH of BPH and obstructive uropathy is brought in by his home nurse Fermin for hypoglycemia and hypotension. The exact numbers are unclear, but upon ER arrival, fingerstick within 200s and BP 80/50s. Recently underwent a left ureteral stent a few weeks ago with Dr. Vázquez, and reports he has had light red urine in his Fields ever since. He underwent left lithotripsy and his urine bloody and dark red with some intermittent bladder pains. He denied any fever, chills, nausea, vomiting, any other blood loss. He does endorse lightheadedness and dizziness. In the ER, he received 2 L NS bolus, to which he responded well. He was also found to have an AK I and lactic acidosis which resolved. Hematuria is resolved with supportive care and close monitoring. H&H stable without any transfusions. Likely 2/2 recent left ureteral stent placement & lithotripsy. Normally follows with Dr. Vázquez -continue Flomax and monitoring s/p Fields removed 07/28. Continue holding Oxybutinin-until o/p f/u with Urology. pt feels weak and lives alone at home with 2x/week nursing visit. PT/OT and likely to Assisted Living soon. He is medically optized for Dc Final Diagnosis 1. Hematuria 2. HTN 3. Debility 4. Obstructive uropathy 5. Chronic diastolic CHF 6. Parkinson's dementia 7. Hyperlipidemia 8. Anxiety 9. GERD 10. IDDM 2 Physical Examination Vitals: see below General exam: A&Ox3, NAD, laying in bed comfortably HEENT: NCAT, EOMI, neck supple, MMM Cardiac: RRR, normal S1 & S2, no murmurs Respiratory: CTAB, good air exchange, no w/r/r Abdomen: soft, ND, hypoactive bowel sounds. Mild tenderness left mid abd : No pelvic tenderness or bladder distension. No CVA tenderness Extremity: 2+ radial and dorsalis pedis pulses, no edema or calf tenderness Skin: [place], warm, dry Neuro: normal speech, no focal deficits. Resting tremor & masked facies congruent with his Parkinson's Medications. As per discharge reconciliation medication list Activity as tolerated Diet. 2 g sodium diet Follow-up appointments. PCP in 1 week, urology in 1 week. Condition on discharge. Patient is medically optimized for discharge Discharge disposition: Rehab Total time spent on this discharge including coordination of care, review of chart documentation and extubation contact is around 35 minutes Vital Signs/I&Os Vital Signs Date Time Temp Pulse Resp B/P (MAP) Pulse Ox O2 Delivery O2 Flow Rate FiO2 08/05/19 08:07 129/61 08/05/19 06:00 97.3 54 18 99 Room Air I&O- Last 24 Hours up to 6 AM 08/05/19 06:00 Intake Total 1530 ml Output Total 1125 ml Balance 405 ml Laboratory Data Labs 24H Laboratory Tests 2 08/04/19 17:23: Bedside Glucose (Misc Panel) 197H 08/04/19 20:09: Bedside Glucose (Misc Panel) 171H 08/05/19 05:25: Nucleated Red Blood Cells % (auto) 0.0, Anion Gap 4L, Glomerular Filtration Rate > 60.0, Calcium Level 8.9, Magnesium Level 1.7L 08/05/19 11:50: Bedside Glucose (Misc Panel) 253H CBC/BMP Laboratory Tests 08/05/19 05:25 FSBS Laboratory Tests Test 08/04/19 17:23 08/04/19 20:09 08/05/19 11:50 Range/Units Bedside Glucose (Misc Panel) 197 171 253 80-115 MG/DL Discharge Medications Scheduled Aripiprazole (Aripiprazole) 30 Mg Tab, 15 MG PO QPM, (Reported) Aspirin (Aspirin EC) 81 Mg Tab, 81 MG PO DAILY, (Reported) Atorvastatin Calcium (Atorvastatin Calcium) 80 Mg Tab, 40 MG PO DAILY, (Reported) Benazepril HCl (Benazepril HCl) 5 Mg Tablet, 5 MG PO DAILY, (Reported) Carbidopa/Levodopa (Carbidopa-Levodopa 25-100 Tab) 1 Tab Tab, 1 TAB PO TID, (Reported) Cholecalciferol (Vitamin D3) (Vitamin D3) 1,000 Unit Capsule, 2,000 UNIT PO DAILY, (Reported) Empagliflozin (Jardiance) 25 Mg Tablet, 12.5 MG PO DAILY, (Reported) Insulin Aspart Prot/Insuln Asp (Novolog Mix 70-30 Flexpen Syrn) 100 Unit/1 Ml Insuln.pen, 38 UNITS SC BID, (Reported) Liraglutide (Victoza 2-Jacek) 18 Mg/3 Ml Inj, 1.8 MG SC DAILY, (Reported) Metformin HCl (Metformin HCl) 1,000 Mg Tab, 1,000 MG PO BID, (Reported) TAKEN WITH BREAKFAST AND DINNER Oxybutynin Chloride (Oxybutynin Chloride ER) 10 Mg Tab, 10 MG PO DAILY, (Reported) Pantoprazole Sodium (Pantoprazole Sodium) 40 Mg Tablet.dr, 40 MG PO QAM, (Reported) Tamsulosin HCl (Flomax) 0.4 Mg Capsule, 0.4 MG PO DAILY, (Reported) Scheduled PRN Acetaminophen (Acetaminophen) 500 Mg Tablet, 1,000 MG PO Q8H PRN for PAIN, (Reported) Alprazolam (Alprazolam) 0.25 Mg Tab, 0.25 MG PO TID PRN for ANXIETY, (Reported) Oxycodone HCl/Acetaminophen (Oxycodone-Acetaminophen 5-325) 1 Each Tablet, 1 TAB PO Q6H PRN for PAIN, (Reported) Allergies Coded Allergies: Penicillins (Verified Adverse Reaction, Mild, upset stomach, 07/05/19) JUMANA ESTEVEZ MD Aug 05, 2019 14:30
[2019-08-05] MEDS ORDERED: LISI-542 PO (14:42)
[2019-08-05] MEDS ORDERED: METF-877 PO (14:42)
[2019-08-05] MEDS ORDERED: ARIP1TAB44 PO (14:42)
[2019-08-05] MEDS ORDERED: PANT-23 PO (14:42)
[2019-08-05] MEDS ORDERED: OXYB10TA2 PO (14:42)
[2019-08-05] MEDS ORDERED: JARD1TAB3 PO (14:42)
[2019-08-05] MEDS ORDERED: FLOM0.4C39 PO (14:42)
[2019-08-05] MEDS ORDERED: CARB25TA9 PO (14:42)
[2019-08-05] MEDS ORDERED: BENA5TA PO (14:42)
[2019-08-05] MEDS ORDERED: NOVOINJ2 SC (14:42)
[2019-08-05] MEDS ORDERED: ATOR80TA59 PO (14:42)
[2019-08-05] MEDS ORDERED: VICT18IN SC (14:42)
[2019-08-05] MEDS ORDERED: ASPI81TA24 PO (14:42)
[2019-08-05] MEDS: ACETAMINOPHEN 500 MG TAB PO PRN (15:00)
[2019-08-05] MEDS: ARIPiprazole 15 MG TAB (AbiLIFY) PO SCH (21:02)
[2019-08-05 22:00] VITALS: BP 162/74
[2019-08-06 06:00] VITALS: BP 134/67
[2019-08-06 07:00] LABS: HEMATOCRIT 38.5 % (42.0-52.0); MEAN CORPUSCULAR HEMOGLOBIN 33.2 pg (27.0-33.0); MEAN CORPUSCULAR HGB CONC 33.8 g/dl (32.0-36.5); MEAN CORPUSCULAR VOLUME 98.2 fl (80.0-96.0); PLATELET COUNT, AUTOMATED 196 10^3/uL (150-450); RED BLOOD COUNT 3.92 10^6/uL (4.30-6.10); WHITE BLOOD COUNT 6.5 10^3/uL (4.0-10.0)
[2019-08-06 07:23] LABS: BLOOD UREA NITROGEN 16 MG/DL (7-18); CALCIUM LEVEL 9.3 MG/DL (8.8-10.2); CARBON DIOXIDE LEVEL 31 MEQ/L (21-32); CHLORIDE LEVEL 107 MEQ/L (98-107); CREATININE FOR GFR 0.98 MG/DL (0.70-1.30); GLOMERULAR FILTRATION RATE > 60.0 (>49); GLUCOSE, FASTING 154 MG/DL (70-100); MAGNESIUM LEVEL 1.7 MG/DL (1.8-2.4); SODIUM LEVEL 145 MEQ/L (136-145)
[2019-08-06] MEDS: TAMSULOSIN 0.4 MG CAP PO SCH (07:54)
[2019-08-06] MEDS: SINEMET 25-100 MG TAB PO SCH (07:54)
[2019-08-06] MEDS: ATORVASTATIN 20 MG TAB PO SCH (07:54)
[2019-08-06] MEDS: DOCUSATE SODIUM 100 MG CAP PO SCH (07:54)
[2019-08-06] MEDS: PANTOPRAZOLE 40MG TAB (PROTONIX) PO SCH (07:54)
[2019-08-06 07:55] VITALS: BP 134/67
[2019-08-06] MEDS: lisinopriL 5 MG TAB PO SCH (07:55)
[2019-08-06] MEDS: MIRALAX *UNIT DOSE* 17GM PACKET PO SCH (07:55)
[2019-08-06] MEDS: HumaLOG INSULIN (NovoLOG) PER UNIT SC SCH (07:55)
[2019-08-06] MEDS: ASPIRIN 81 MG ENTERIC TAB PO SCH (07:55)
[2019-08-06] MEDS: LEVEMIR (INSULIN DETEMIR) 1 UNITS/0.01ML SC SCH (08:02)
[2019-08-06] MEDS: ALPRAZolam 0.25 MG TAB PO PRN (08:02)
== END 2019-08-06 09:45 | DRG 699 ==
LOC: M ED 12:40 → M ED INP 17:48 → EEVIPCON 17:48 → M PCU 19:35 → M MSPAV 07-27 14:53
PROVIDERS: ADMIT Internal Medicine; ATTEND Internal Medicine
DX: T83.192A Other mechanical complication of indwelling ureteral stent, initial encounter (principal); I50.32 Chronic diastolic (congestive) heart failure; E87.2 Acidosis; N17.9 Acute kidney failure, unspecified; R31.9 Hematuria, unspecified; I11.0 Hypertensive heart disease with heart failure; E78.5 Hyperlipidemia, unspecified; E11.9 Type 2 diabetes mellitus without complications; K21.9 Gastro-esophageal reflux disease without esophagitis; G31.83 Neurocognitive disorder with Lewy bodies; F02.80 Dementia in other diseases classified elsewhere, unspecified severity, without behavioral disturbance, psychotic disturbance, mood disturbance, and anxiety; F41.9 Anxiety disorder, unspecified; N13.9 Obstructive and reflux uropathy, unspecified; N40.0 Benign prostatic hyperplasia without lower urinary tract symptoms; Z90.49 Acquired absence of other specified parts of digestive tract; Z88.0 Allergy status to penicillin; Z87.891 Personal history of nicotine dependence; Z79.899 Other long term (current) drug therapy; Z79.82 Long term (current) use of aspirin; Z79.84 Long term (current) use of oral hypoglycemic drugs; Z79.4 Long term (current) use of insulin